=== PATIENT | female | born 1950 | race Caucasian/White ===

== ENCOUNTER 2022-09-26 12:25 | Observation (INO) | payer OTHER, SELFPAY ==
[2022-09-26] VITALS (11 sets, daily range): BP systolic 120–148; BP diastolic 64–88; PULSE 62–95; RESP 18–28; TEMP 36.3–36.7; O2SAT 95–99; BMI 14.5
--- NOTE | ~2022-09-26 | XR_ITS ---
XR chest 2V DATE: 09/26/2022 13:17 INDICATION: Dyspnea. Bilateral lower leg edema. Weakness. TECHNIQUE: 2 views COMPARISON: None FINDINGS: Status post sternotomy and probable coronary bypass graft surgery. Surgical clips overlie both upper lateral chest areas. Heart size is normal. There is thoracic and abdominal aortic calcification and great vessel calcifica tion. No hilar or mediastinal enlargement. Bilateral hyperinflation and flattening the diaphragm, suggesting COPD. No pulmonary infiltrate or co nsolidation, pleural effusion or pulmonary congestion or pneumothorax is detected. Diffuse osteopenia. IMPRESSION: Status post sternotomy and coronary bypass graft surgery Aortic atherosclerosis Bilateral hyperinflation suggesting COPD No active cardiopulmonary disease Reviewed, dictated and finalized at location B. CE ELECTRICIAN
--- NOTE | ~2022-09-26 | CT_ITS ---
EXAMINATION: CTA chest PE protocol DATE: 09/26/2022 19:07 INDICATION: elevated dimer, dyspnea TECHNIQUE: Computed tomography angiography (CTA) of the chest was performed with 100 mL Omnipaque-350 intravenous contrast timed to evaluate the pulmonary arteries. Coronal maximum intensity projection 3D-reconstructions were created by the technologist. The dose-length product (DLP) was 150.48 mGy-cm. Automated exposure control and iterative reconstruction technique were employed. COMPARISON: X-ray chest, same date. FINDINGS: Lung parenchyma and airways: Emphysematous change. Pleura: Unremarkable. Thoracic inlet, axillae and chest wall: Bilateral arterial grafts originating from the axillary arter ies and extending inferiorly along the left and right sides of the chest which appear patent. Graft l anding sites not included in the [id number]. Intact sternotomy wires. Thoracic aorta: Mild mural thickening of the aorta, with arch calcification. Mediastinum: Normal. Heart and pericardium: Normal. Coronary artery calcifications: Moderate. Upper abdomen: No significant finding. Bones: No acute osseous finding. Pulmonary arteries: Study quality: Adequate. No pulmonary emboli detected. IMPRESSION: No CT evidence of acute pulmonary embolus. Reviewed, dictated and finalized at location K. ECTION MANAGER
--- NOTE | 2022-09-26 12:33 | ECG_ITS ---
Measurements Intervals [place] Rate: 75 P: 48 MO: 125 QRS: 74 QRSD: 89 T: 66 QT: 440 QTc: 491 Interpretive Statements SINUS RHYTHM ATRIAL PREMATURE COMPLEXES T WAVE ABNORMALITY IN ANTERIOR LEADS- CONSIDER ISCHEMIA BASELINE ARTIFACT- I, II, III, AVR, AVL, AVF, V1-V6 ABNORMAL ECG NO PREVIOUS ECG AVAILABLE FOR COMPARISON Electronically Signed On 09-26-2022 17:32:49 RECRUITING MANAGER by Edd Saldivar D.O.
[2022-09-26 13:04] LABS: Basophils Percent Auto 0.1 % (0.2-1.2); Eosinophils Percent Auto 0.1 % (0-4.4); Hematocrit 27.8 % (37.0-47.0); Hemoglobin 7.6 g/dL (12.0-15.0); Immature Granulocyte Absolute 0.22 K/mm3 (0.00-0.031); Immature Granulocyte Percent A 1.6 % (0-0.5); Lymphocytes Absolute Auto 2.82 K/mm3 (0.9-3.2); Lymphocytes Percent Auto 20.7 % (18.3-44.2); Mean Corpuscular HGB Conc 27.3 g/dl (32-36); Mean Corpuscular Hemoglobin 22.5 pg (26-34); Mean Corpuscular Volume 82.2 fl (80-100); Monocytes Absolute Auto 1.1 K/mm3 (0.1-0.6); Neutrophils Absolute Auto 9.5 K/mm3 (1.3-6.7); Neutrophils Percent Auto 69.5 % (45.5-73.1); Nucleated Red Blood Cells Absolute Auto 0.1 K/mm3 (0.0-0.012); Nucleated Red Blood Cells Perc 0.8 % (0.0-0.2); Platelet Count Result 174 k/mm3 (150-375); Red Blood Count 3.38 M/mm3 (4.2-5.4); Red Cell Distribution Width 21.2 % (11.5-14.5); White Blood Count 13.6 K/mm3 (4.5-10.0)
[2022-09-26 13:09] LABS: Platelet Estimate Adequate (Adequate)
[2022-09-26 13:11] LABS: Hypochromasia 2+ (NORMAL)
[2022-09-26 13:12] LABS: Anisocytosis 2+ (NORMAL); Ovalocytes 2+ (NORMAL); Schistocytes None Seen (NORMAL); Target Cells 1+ (NORMAL); Tear Drop Cells 1+ (NORMAL)
[2022-09-26 13:22] LABS: Alanine Aminotransferase 37 U/L (6-35); Albumin Level 3.6 g/dL (3.5-5.1); Alkaline Phosphatase 78 U/L (38-126); Anion Gap 7 mmol/L (8-16); Aspartate Amino Transferase 52 U/L (14-36); Bilirubin,Total 0.5 mg/dL (0.2-1.3); Blood Urea Nitrogen 28 mg/dL (7-17); Carbon Dioxide 23 mmol/L (22-30); Chloride 109 mmol/L (98-107); Estimated CRCL calculation 40 ml/min; Estimated Glomerular Filt Rate > 60; Glucose 83 mg/dL (65-110); Potassium 4.3 mmol/L (3.4-5.0); Sodium 139 mmol/L (137-145)
[2022-09-26 13:34] LABS: NT Pro B Type Natriuretic Pept 2460 pg/mL (5-100); Troponin I < 0.012 ng/mL (0.000-0.034)
[2022-09-26 13:44] LABS: Influenza A QL RT-PCR Negative (Negative); Influenza B QL RT-PCR Negative (Negative); SARS-CoV-2 RNA PCR Negative
--- NOTE | 2022-09-26 16:42 | PC.NURSE ---
Pt placed on 2 L NC O2 due to increased WOB.
--- NOTE | 2022-09-26 16:58 | ED.SOB ---
HPI - SOB/Dyspnea General Chief Complaint: Shortness of Breath/Dyspnea Stated Complaint: difficulty breathing Time Seen by Provider: 09/26/22 16:58 Source: patient Mode of arrival: EMS Limitations: no limitations History of Present Illness HPI Narrative: Patient is a 72-year-old female with a history of COPD, coronary artery disease, hyperlipidemia, hypertension, CABG, chronic anticoagulation, recent GI bleed with hospitalization at [facility], presenting to the emergency department for evaluation of shortness of breath. Patient states that she has been short of breath over the course of the day today which prompted her visit to our ER. Patient reports aching chest pain in the center of her chest without radiation to the back, neck, shoulder. Patient denies significant cough or sputum production. She denies fever or chills. Patient reports generalized weakness and feeling unwell. She reports dark stools secondary to iron use. Patient states she was hospitalized at [facility] for GI bleed and had been chronically anticoagulated on Coumadin which has since been transitioned to apixaban. She has been compliant with her medication therapy. She does report bilateral lower extremity swelling around her ankles. She denies any focal calf pain or redness. Patient denies use of home oxygen. Related Data Home Medications Medication Instructions Recorded Confirmed Advair Diskus 2 inh inhalation Q6H PRN Shortness 09/26/22 09/26/22 Of Breath Crestor 40 mg PO DAILY 09/26/22 09/26/22 Lopressor 25 mg PO BID 09/26/22 09/26/22 Lyrica 150 mg PO BID 09/26/22 09/26/22 Protonix 40 mg PO DAILY 09/26/22 09/26/22 Remeron 15 mg PO HS 09/26/22 09/26/22 Requip 0.75 mg PO BID 09/26/22 09/26/22 albuterol 1.25 mg inhalation Q6H PRN Wheezing 09/26/22 09/26/22 alendronate 70 mg PO WEEKLY 09/26/22 09/26/22 apixaban 5 mg PO BID 09/26/22 09/26/22 aspirin 81 mg PO DAILY 09/26/22 09/26/22 donepezil 10 mg PO DAILY 09/26/22 09/26/22 escitalopram oxalate 5 mg PO DAILY 09/26/22 09/26/22 famotidine 20 mg PO DAILY 09/26/22 09/26/22 hydrocodone 5 mg-acetaminophen 325 1 tablet PO Q4H PRN Pain (Scale 09/26/22 09/26/22 mg tablet Score 4-6) isosorbide mononitrate 30 mg 30 mg PO DAILY 09/26/22 09/26/22 tablet,extended release 24 hr oxcarbazepine 150 mg PO HS 09/26/22 09/26/22 Allergies Allergy/AdvReac Type Severity Reaction Status Date / Time No Known Allergies Allergy Verified 09/26/22 12:39 Review of Systems Review of Systems: CONSTITUTIONAL: Denies fever, chills, or sweats. EYES: Denies visual changes, redness, or discharge. ENT: Denies rhinorrhea, congestion, sore throat, or otalgia. CARDIOVASCULAR: Reports chest pain without palpitations; reports bilateral ankle edema, denies calf edema RESPIRATORY: Reports cough and shortness of breath GASTROINTESTINAL: Denies abdominal pain, nausea, vomiting, or diarrhea. GENITOURINARY: Denies dysuria or hematuria. SKIN: Denies rash or itching. MUSCULOSKELETAL: Denies back pain, joint pain, or myalgia. NEUROLOGIC: Denies headache, numbness; reports generalized weakness PMF Past Medical History Medical History (Updated 09/26/22 @ 23:31 by Lisa Huggins MD) Chronic anticoagulation Coronary artery disease GI bleed Hypertension Surgical History Surgical History (Updated 09/26/22 @ 17:20 by Lisa Huggins MD) Hx of CABG Family History Family History (Updated 09/26/22 @ 22:20 by Tessa Whitt RN) Father Acute myocardial infarction Cerebrovascular accident Congestive heart failure Hypertension Mother Acute myocardial infarction History of blood clots Congestive heart failure Hypertension Sibling Asthma Social History Social History (Updated 09/26/22 @ 17:20 by Lisa Huggins MD) Smoking status: Former smoker Alcohol intake: never Substance use: never Lack of Transportation: No Lack of Food: Never True Current Housing: I Have Housing Concerne
[2022-09-26] MEDS: methylPREDNISolone SOD SUCC 125 MG VIAL IV PUSH (17:34)
[2022-09-26] MEDS: IPRATROPIUM BR 0.02% INH SOLN 0.5 MG/2.5 ML VIAL INHALATION (17:46)
[2022-09-26] MEDS: ALBUTEROL SULFATE NEB 2.5 MG/3 ML INH 5 MG INHALATION (17:46)
[2022-09-26 17:50] LABS: Base Excess ABG -0.9 mEq/l (+/-2.0); Carboxyhemoglobin 1.9 % THb (0-2.0); Fractional Inspired Oxygen 21 %; Methemoglobin ABG 0.3 %THb (0-1.5); Oxygen Content ABG 10.9 %vol (16.0-22.0); Oxygen Saturation ABG 96.8 % (95.0-100.0); Oxyhemoglobin 93.6 % THb (90.0-100.0); PCO2 ABG 34.5 mmHg (35.0-45.0); PO2 ABG 84.4 mmHg (80.0-100.0); PO2 FiO2 Ratio Arterial Blood 4.02 %; Reduced Hemoglobin 4.2 %THb (0-5.0); Total Hemoglobin 8.2 g/dL (12.0-18.0); pH ABG 7.442 (7.350-7.450)
[2022-09-26 17:51] LABS: Device NASAL CANNULA; Modified Allen's Test Pass; Site Drawn LEFT RADIAL
[2022-09-26 18:00] LABS: INR 1.2; Partial Thromboplastin Time 26.1 SECONDS (22.3-36.8); Prothrombin Time 14.5 Seconds (11.1-14.7)
[2022-09-26 18:34] LABS: D Dimer 1.58 ug/mL (<0.48)
--- NOTE | 2022-09-26 20:02 | PM.IMHP ---
H&P: HPI History of Present Illness Date/Time: 09/26/22 20:02 Chief Complaint: shortness of breath Narrative: This is a 72-year-old female with past medical history significant for peripheral vascular disease, hypertension, COPD/emphysema. patient was just discharged from outside hospital due to GI bleed has had 30 lb weight loss in the last 6 months unintentionally. She comes in today due to worsening shortness of breath, denies sputum production, has some ankle edema and pedal edema, no nausea, no vomiting, no abdominal pain, no diarrhea, no fevers, no rigors, no chills. preliminary workup was significant for CT angiogram of the chest was negative for acute pulmonary embolism a chest x-ray showed hyperinflation a brain natriuretic peptide was 2400. Patient is been admitted for further evaluation management and treatment. Review of Systems Review of Systems: Shortness of breath, pedal swelling, ankle swelling, unintentional weight loss, GI bleed. Constitutional: Constitutional: Denies chills, Reports fatigue, Denies fever(s), Reports lethargy, Denies night sweats, Reports poor appetite and Reports weight loss Eyes: Eyes: Denies change in vision ENT: Denies dysphagia, Denies vertigo, Denies dizziness and Denies odynophagia Respiratory: Respiratory: Denies chest congestion, Denies cough, Denies excessive phlegm production, Denies pain on inspiration, Reports dyspnea and Reports wheezing Gastrointestinal: Gastrointestinal: Denies abdominal pain, Denies dyspepsia, Denies heartburn, Denies diarrhea, Denies nausea and Denies vomiting Genitourinary: Genitourinary: Denies dysuria Musculoskeletal: Musculoskeletal: Reports muscle weakness Integumentary/Breasts: Skin/Breast: Denies rash Neurologic: Denies vertigo, Denies dizziness, Denies focal weakness and Denies Sensory deficit (Neuro) Psychiatric: Psychiatric: Reports no additional psychiatric complaints and Reports as per HPI Endocrine: Endocrine: Denies cold intolerance and Denies heat intolerance Hematologic/Lymphatic: Hematologic/Lymphatic: Reports no additional hematologic/lymphatic complaints and Reports as per HPI Allergic/Immunologic: Allergic/Immunologic: Reports no additional allergic/immunologic complaints and Reports as per HPI [facility] Past Medical History Medical History (Updated 09/27/22 @ 00:24 by Amanda Ramirez MD) Chronic anticoagulation Coronary artery disease GI bleed Hypertension Surgical History Surgical History (Updated 09/26/22 @ 17:20 by Lisa Huggins MD) Hx of CABG Family History Family History (Updated 09/26/22 @ 22:20 by Tessa Whitt RN) Father Acute myocardial infarction Cerebrovascular accident Congestive heart failure Hypertension Mother Acute myocardial infarction History of blood clots Congestive heart failure Hypertension Sibling Asthma Social History Social History (Updated 09/26/22 @ 17:20 by Lisa Huggins MD) Smoking status: Former smoker Alcohol intake: never Substance use: never Lack of Transportation: No Lack of Food: Never True Current Housing: I Have Housing Concerned About Future Housing: No Difficulty Paying Gas/Electric Bills: No Difficulty Paying for Meds: No Currently Unemployed: No Education: High School Diploma/GED Difficulty w/ Childcare or Family Care: No Living arrangements: alone Gender identity (if verbalized by the patient): Female Spiritual care concerns: No Meds Home Medications and Allergies Home Medications Medication Instructions Recorded Confirmed Type Advair Diskus 2 inh inhalation Q6H PRN Shortness 09/26/22 09/26/22 History Of Breath Crestor 40 mg PO DAILY 09/26/22 09/26/22 History Lopressor 25 mg PO BID 09/26/22 09/26/22 History Lyrica 150 mg PO BID 09/26/22 09/26/22 History Protonix 40 mg PO DAILY 09/26/22 09/26/22 History Remeron 15 mg PO HS 09/26/22 09/26/22 History Requip 0.75 mg PO BID 09/26/22 09/26/22 Hist
--- NOTE | 2022-09-26 22:09 | ADMGEN ---
This patient, Elena Sanon, was admitted to Medical Room 342-01. Patient/family oriented to hospital policies and general routines including ID bracelet, bed and alarms, visiting hours, pain management, procedures, bathroom and other care routines, personal items, smoking policy, room service/diet, and visiting hours. Information on how to activate the Rapid Response Team has been discussed. Patient/Family are encouraged to report perceived risks to care and to ask questions if they do not understand what they are told or what they should do.
[2022-09-26 23:05] LABS: Hematocrit 26.8 % (37.0-47.0); Hemoglobin 7.4 g/dL (12.0-15.0)
[2022-09-26 23:42] LABS: Troponin I < 0.012 ng/mL (0.000-0.034)
[2022-09-27] VITALS (22 sets, daily range): BP systolic 103–140; BP diastolic 51–71; PULSE 62–116; RESP 16–22; TEMP 36.3–36.9; O2SAT 94–100; BMI 14.5
[2022-09-27] MEDS: OXcarbazepine 150 MG TABLET PO (01:28)
[2022-09-27 04:58] LABS: Hematocrit 28.4 % (37.0-47.0); Hemoglobin 7.9 g/dL (12.0-15.0)
[2022-09-27 05:25] LABS: Troponin I < 0.012 ng/mL (0.000-0.034)
--- NOTE | 2022-09-27 06:00 | ECHO_ITS ---
Patient Info Name: Elena Sanon Age: 72 years : 1950 Gender: Female Ht: 62 in Wt: 79 lbs BSA: 1.24 m2 HR: 78 bpm BP: 148 / 75 mmHg Heart Rhythm: Sinus Rhythm Technical Quality: Fair Exam Date: 09/27/2022 8:16 AM Exam Location: [facility] Patient Status: Inpatient Admit Date: 09/26/2022 Staff Ordering Physician: Lisa Huggins MD [place] Farmer: Karol Harmon RDCS Attending Provider: Amanda Ramirez MD Referring Physician: Joseluis VALENZUELA; Exam Type: CA echo doppler color flow Study Info Indications - elevated bnp, dyspnea Complete two-dimensional, color flow and Doppler transthoracic echocardiogram is performed. Summary 1. Complete two-dimensional, color flow and Doppler transthoracic echocardiogram is performed. 2. Left ventricular systolic function is normal, estimated at 50-55%. 3. The basal inferoseptum is thinned and akinetic. 4. The left ventricular diastolic function is grade I diastolic dysfunction. 5. Right ventricular chamber dimension is normal. 6. Right ventricular systolic function is reduced. 7. The mitral valve has thickened leaflets. 8. There is severe mitral valve regurgitation. 9. Normal inferior vena cava with >50% collapse upon inspiration consistent with normal right atrial pressure, 3 mmHg. Left Ventricle The basal inferoseptum is thinned and akinetic. Left ventricular chamber dimension is normal. Left ventricular systolic function is normal, estimated at 50-55%. There is no increased left ventricular wall thickness. The left ventricular diastolic function is grade I diastolic dysfunction. Right Ventricle Right ventricular chamber dimension is normal. Right ventricular systolic function is reduced. Left Atria Left atrial chamber dimension is normal. Right Atria Right atrial chamber dimension is normal. Aortic Valve The aortic valve is not well visualized. There is moderate aortic valve sclerosis. There is no aortic valve stenosis. There is no aortic valve regurgitation. Pulmonic Valve The pulmonic valve is not well visualized. Mitral Valve The mitral valve has thickened leaflets. There is no mitral valve stenosis. There is severe mitral valve regurgitation. Tricuspid Valve The tricuspid valve leaflets are normal. There is trace tricuspid valve regurgitation. Pericardium/Pleural There is no pericardial effusion. Inferior Vena Cava Normal inferior vena cava with >50% collapse upon inspiration consistent with normal right atrial pressure, 3 mmHg. Aorta The aortic root size at the sinus of Valsalva is normal. Left Ventricular Outflow Tract Name Value Normal LVOT 2D LVOT Diameter 2.0 cm LVOT Doppler LVOT Peak Gradient 3 mmHg LVOT Mean Gradient 2 mmHg LVOT VTI 19 cm LVOT VTI/AV VTI Ratio 0.7 LVOT Stroke Volume 58 ml LVOT CO 4.2 l/min LVOT CI 3.4 l/min/m2 Pulmonic Valve
[2022-09-27 08:46] LABS: Hematocrit 26.4 % (37.0-47.0); Hemoglobin 7.3 g/dL (12.0-15.0)
[2022-09-27] MEDS: FLUTICASONE/SALMETEROL 115-21 MCG INHALER 1 PUFF 2 PUFF INHALATION ×2 (09:00→21:43)
[2022-09-27] MEDS: IPRATROPIUM BR 0.02% INH SOLN 0.5 MG/2.5 ML VIAL INHALATION ×4 (09:00→21:30)
[2022-09-27] MEDS: ALBUTEROL SULFATE NEB 2.5 MG/3 ML INH 5 MG INHALATION ×4 (09:00→21:30)
[2022-09-27] MEDS: ASPIRIN 81 MG CHEWABLE TABLET PO (09:02)
[2022-09-27] MEDS: ESCITALOPRAM OXALATE 5 MG TABLET PO (09:02)
[2022-09-27] MEDS: DONEPEZIL HCL 10 MG TABLET PO (09:02)
[2022-09-27] MEDS: FAMOTIDINE 20 MG TABLET PO (09:02)
[2022-09-27] MEDS: APIXABAN 5 MG TABLET BY MOUTH ×2 (09:02→20:23)
[2022-09-27] MEDS: ISOSORBIDE MONONITRATE 30 MG TAB.ER.24H PO (09:03)
[2022-09-27] MEDS: PREGABALIN (*CRX) 75 MG CAPSULE 150 MG PO ×2 (09:03→17:12)
[2022-09-27] MEDS: PANTOPRAZOLE 40 MG TABLET PO ×2 (09:03→20:55)
[2022-09-27] MEDS: ROSUVASTATIN 10 MG TABLET 40 MG PO (09:03)
[2022-09-27] MEDS: METOPROLOL TARTRATE 25 MG TABLET PO ×2 (09:03→20:22)
[2022-09-27] MEDS: rOPINIRole HCL 0.5 MG TABLET PO ×2 (09:03→17:12)
[2022-09-27 11:29] LABS: Appearance Urine Clear (Clear); Bilirubin Urine Negative (Negative); Blood Urine Negative (Negative); Color Urine Yellow (Yellow); Glucose Urine UA Negative (Negative); Ketones Urine Negative (Negative); Leukocyte Esterase Ur Negative LEU/UL (Negative); Nitrate Urine Negative (Negative); Protein Urine 2+ mg/dL (Negative); Urobilinogen Urine 0.2 mg/dL (<2.0)
[2022-09-27 11:34] LABS: Add Urine Microscopic? YES; RBC Urine 0-2 /hpf (0-2); Squamous Epithelial Cell Urine Rare /hpf (Few); WBC Urine 0-3 /hpf
--- NOTE | 2022-09-27 14:00 | PM.IMPN ---
Progress Note: A&P Assessment and Plan (1) COPD exacerbation: Code(s): J44.1 - Chronic obstructive pulmonary disease with (acute) exacerbation Status: Acute Assessment and Plan: admit to regular medical floor breathing treatments q.4 no change in sputum quality no infiltrates on CT of the chest Start prednisone 40 mg supportive care (2) Anemia: Code(s): D64.9 - Anemia, unspecified Status: Acute Assessment and Plan: Trending H&H Hemoglobin on arrival 7.4 Hemoglobin dropped to 6.7. Patient received 1 unit of packed red blood cells. Anemia labs ordered Occult stool ordered Consider GI consult pending anemia and of occult stool (3) Weight loss: Code(s): R63.4 - Abnormal weight loss Status: Acute Assessment and Plan: Patient has a history of 30 lb unintentional weight loss the past 6 months Patient attributes weight loss to lack of eating due to shortness of breath (4) Shortness of breath: Code(s): R06.02 - Shortness of breath Status: Acute Assessment and Plan: Differentials: PE, COPD exacerbation, congestive heart failure, pneumonia, anemia CTA negative for PE BNP 2400 Chest x-ray indicated of COPD, no pulmonary infiltrates suggestive of pneumonia Echo: EF of 50-55%, grade 1 diastolic dysfunction, severe mitral valve regurg, mitral valve thickened leaflets Cardiology consulted (5) Coronary artery disease: Code(s): I25.10 - Atherosclerotic heart disease of [place] coronary artery without angina pectoris Status: Acute Assessment and Plan: chest pain-free continue home meds (6) Hypertension: Code(s): I10 - Essential (primary) hypertension Status: Acute Assessment and Plan: continue home meds continue to monitor (7) Peripheral vascular disease: Code(s): I73.9 - Peripheral vascular disease, unspecified Status: Acute Assessment and Plan: unchanged continue to monitor Time Spent With Patient Time with patient: Greater than 35 minutes Subjective Date/time seen: 09/27/22 14:00 Interval history: 72-year-old woman with a history of GI bleed, hypertension, COPD. She arrived to the ER with chief complaint of shortness of breath. Patient recently had GI bleed and was treated at [facility] patient stated that she had seen her doctor and discussed her shortness of breath with him and he wanted her to be seen in the ER. Patient stated that as long as she does not get up and move her shortness of breath is controlled. Patient stated that she came to the ER with edema in her lower extremities. She denies chest pain, nausea, vomiting diarrhea, constipation, and fever. Review of Systems Review of Systems: All systems reviewed & are unremarkable except as noted in HPI and below Objective Data Vital Signs Vital Signs: Vital Signs - 24 hr 09/26/22 16:40 09/26/22 16:41 09/26/22 16:41 Temperature Pulse Rate 78 84 Respiratory Rate 28 H Blood Pressure 136/80 Pulse Oximetry 99 96 Oxygen Delivery Room Air Oxygen Flow Rate 09/26/22 17:33 09/26/22 17:45 09/26/22 19:45 Temperature 97.3 F L Pulse Rate 79 80 81 Respiratory Rate 19 23 H 18 Blood Pressure 128/67 120/77 Pulse Oximetry 96 95 Oxygen Delivery Oxygen Flow Rate 09/26/22 21:22 09/26/22 21:42 09/26/22 22:21 Temperature 97.4 F L 97.4 F L Pulse Rate 95 81 Respiratory Rate 18 18 Blood Pressure 126/88 128/64 Pulse Oximetry 95 98 96 Oxygen Delivery Nasal Cannula Oxygen Flow Rate 2 09/26/22 22:00 09/26/22 22:10 09/27/22 00:00 Temperature 97.4 F L Pulse Rate 62 80 84 Respiratory Rate 20 Blood Pressure 148/75 H Pulse Oximetry 96 Oxygen Delivery Oxygen Flow Rate 09/27/22 04:00 09/27/22 06:00 09/27/22 09:02 Temperature 97.4 F L Pulse Rate 78 62 78 Respiratory Rate 20 22 H Blood Pressure 140/71 Pulse Oximetry 96 Oxygen Delive
[2022-09-27 14:20] LABS: Hematocrit 24.8 % (37.0-47.0); Mean Corpuscular Hemoglobin 22.7 pg (26-34); Mean Corpuscular Volume 84.1 fl (80-100); Mean Platelet Volume 11.6 fl (7.4-10.4); Platelet Count Result 152 k/mm3 (150-375); Red Blood Count 2.95 M/mm3 (4.2-5.4); Red Cell Distribution Width 22.4 % (11.5-14.5); White Blood Count 13.9 K/mm3 (4.5-10.0)
[2022-09-27 14:26] LABS: Hemoglobin 6.7 g/dL (12.0-15.0)
[2022-09-27 14:31] LABS: Anion Gap 7 mmol/L (8-16); Blood Urea Nitrogen 29 mg/dL (7-17); Calcium 8.4 mg/dL (8.4-10.2); Carbon Dioxide 20 mmol/L (22-30); Chloride 109 mmol/L (98-107); Estimated CRCL calculation 42 ml/min; Estimated Glomerular Filt Rate > 60; Glucose 161 mg/dL (65-110); Potassium 3.8 mmol/L (3.4-5.0); Sodium 136 mmol/L (137-145)
--- NOTE | 2022-09-27 15:01 | PC.NURSE ---
Spoke with hospitalist Shari regarding patients hemoglobin. Hospitalist wants labs drawn before blood is administered. Collision Worker has attempted to contact a federal judicial law clerk on 4 different extensions with no answer. Collision Worker has called charge nurse on 2 med and 3 med surg and both are unable to contact a federal judicial law clerk as well.
[2022-09-27] MEDS: ACETAMINOPHEN 325 MG TABLET 650 MG PO (15:22)
--- NOTE | 2022-09-27 15:54 | PM.CNCAR ---
Assessment and Plan Assessment and plan (1) Coronary artery disease: Code(s): I25.10 - Atherosclerotic heart disease of [place] coronary artery without angina pectoris Status: Acute Assessment and Plan: Remote history of CABG with multiple bypass grafts reportedly closed 18 years ago. No workup since. She has chest pain is very concerning for angina which is of course worsening because of anemia also. (2) COPD exacerbation: Code(s): J44.1 - Chronic obstructive pulmonary disease with (acute) exacerbation Status: Acute Assessment and Plan: Severe (3) Hypertension: Code(s): I10 - Essential (primary) hypertension Status: Acute (4) Peripheral vascular disease: Code(s): I73.9 - Peripheral vascular disease, unspecified Status: Acute Assessment and Plan: Severe (5) Unstable angina: Code(s): I20.0 - Unstable angina Status: Acute Assessment and Plan: Worsening angina over the past 6 months (6) Severe mitral regurgitation: Code(s): I34.0 - Nonrheumatic mitral (valve) insufficiency Status: Acute Assessment and Plan: Severe. Unknown chronicity (7) Anemia: Code(s): D64.9 - Anemia, unspecified Status: Acute Assessment and Plan: Uncertain etiology to this point. With the weight loss, concerning for underlying malignancy. Reportedly had an upper endoscopy recently and had cauterization (8) Weight loss: Code(s): R63.4 - Abnormal weight loss Status: Acute Assessment and Plan: Significant. 30 lb weight loss over the past 6 months (9) Chronic anticoagulation: Code(s): Z79.01 - extermination inspector (current) use of anticoagulants Status: Acute Plan This is a very complex patient with a very complex history. She is worsening angina which is obviously being worsened by severe anemia. She has need for chronic anticoagulation given her bypass grafting to her lower extremities. She also has severe anemia which is likely GI in etiology with significant weight loss which is concerning for underlying malignancy. She also has oxygen-dependent COPD. On top of the fact the most recent echocardiogram here in the hospital shows severe mitral regurgitation. In terms of workup, would 1st stabilize her anemia perspective. Would transfuse as need be and also complete the GI workup with colonoscopy and evaluation of underlying malignancy. Obviously once her bleeding issues stabilize, she will need ischemic workup and consideration of workup for mitral valve repair/replacement if clinically appropriate at that point. For now, would continue met Evoprolol, high-dose statin, isosorbide. Await GI evaluation workup and further recommendations depending on that result History of Present Illness History of Present Illness Consult date/time: 09/27/22 15:54 Requesting physician: Shari Scott PA-C Consult reason: Other (MR) Reason For Visit: COPD exacerbation, dyspnea, anemia Narrative: Date of service 09/27/2022 Reason consultation: Severe mitral regurgitation Requesting provider: Shari Scott History: Patient is a 9-year-old female who has a very complicated past medical history. She is a history of coronary disease status post CABG at the age of 44. She had a catheterization about 18 years ago which reportedly the patient had multiple bypass grafts which were already occluded. No PCI was performed at that point. Patient had emergent aortoiliac bypass by Dr. Hill in [place] a couple of years ago. She has been recently hospitalized twice at [facility] the past couple weeks because shortness of breath. Patient has oxygen-dependent COPD and also had severe anemia. She has required transfusions recently and most recent hospitalization resulted in iron transfusion. She was hospitalized yesterday after seeing her primary care physician. She has been having worsening swelling over the
[2022-09-27 16:35] LABS: Transferrin 307 mg/dL (206-381)
[2022-09-27] MEDS: SODIUM CHLORIDE 0.9% IV 250 ML 30 ML IV CONT (17:03)
[2022-09-27 17:06] LABS: Iron 24 ug/dL (37-170)
[2022-09-27 17:15] LABS: Percent Iron Saturation 6 % (20-50)
[2022-09-27 17:39] LABS: Folic Acid 13.8 ng/mL (2.76->20); Vitamin B12 > 1000.0 pg/mL (239-931)
[2022-09-27] MEDS: MIRTAZAPINE 15 MG TABLET PO (20:22)
[2022-09-28] VITALS (14 sets, daily range): BP systolic 100–163; BP diastolic 63–84; PULSE 75–127; RESP 16–20; TEMP 36.7–37; O2SAT 92–99
[2022-09-28 01:51] LABS: Hematocrit 32.5 % (37.0-47.0); Hemoglobin 9.5 g/dL (12.0-15.0)
[2022-09-28 06:09] LABS: Hematocrit 35.8 % (37.0-47.0); Hemoglobin 10.6 g/dL (12.0-15.0); Mean Corpuscular HGB Conc 29.6 g/dl (32-36); Mean Corpuscular Hemoglobin 24.8 pg (26-34); Mean Corpuscular Volume 83.8 fl (80-100); Mean Platelet Volume 12.2 fl (7.4-10.4); Platelet Count Result 156 k/mm3 (150-375); Red Blood Count 4.27 M/mm3 (4.2-5.4); Red Cell Distribution Width 22.3 % (11.5-14.5); White Blood Count 10.8 K/mm3 (4.5-10.0)
[2022-09-28 06:18] LABS: Alanine Aminotransferase 29 U/L (6-35); Albumin Level 3.6 g/dL (3.5-5.1); Alkaline Phosphatase 74 U/L (38-126); Anion Gap 3 mmol/L (8-16); Aspartate Amino Transferase 25 U/L (14-36); Bilirubin,Total 0.4 mg/dL (0.2-1.3); Blood Urea Nitrogen 24 mg/dL (7-17); Calcium 8.2 mg/dL (8.4-10.2); Carbon Dioxide 27 mmol/L (22-30); Chloride 107 mmol/L (98-107); Estimated CRCL calculation 42 ml/min; Estimated Glomerular Filt Rate > 60; Glucose 77 mg/dL (65-110); Potassium 3.9 mmol/L (3.4-5.0); Sodium 137 mmol/L (137-145)
[2022-09-28] MEDS: ASPIRIN 81 MG CHEWABLE TABLET PO (08:55)
[2022-09-28] MEDS: APIXABAN 5 MG TABLET BY MOUTH ×2 (08:55→19:59)
[2022-09-28] MEDS: ESCITALOPRAM OXALATE 5 MG TABLET PO (08:55)
[2022-09-28] MEDS: ISOSORBIDE MONONITRATE 30 MG TAB.ER.24H PO (08:55)
[2022-09-28] MEDS: METOPROLOL TARTRATE 25 MG TABLET PO ×2 (08:55→19:59)
[2022-09-28] MEDS: DONEPEZIL HCL 10 MG TABLET PO (08:55)
[2022-09-28] MEDS: FAMOTIDINE 20 MG TABLET PO (08:55)
[2022-09-28] MEDS: rOPINIRole HCL 0.5 MG TABLET PO ×2 (08:56→17:22)
[2022-09-28] MEDS: ROSUVASTATIN 10 MG TABLET 40 MG PO (08:56)
[2022-09-28] MEDS: PREGABALIN (*CRX) 75 MG CAPSULE 150 MG PO ×2 (08:56→17:22)
[2022-09-28] MEDS: PANTOPRAZOLE 40 MG TABLET PO ×2 (08:56→19:59)
--- NOTE | 2022-09-28 10:21 | PM.PNCARD ---
Progress Note: A&P Assessment and Plan (1) Coronary artery disease: Code(s): I25.10 - Atherosclerotic heart disease of [place] coronary artery without angina pectoris Status: Acute Assessment and Plan: Remote history of CABG with multiple bypass grafts reportedly closed 18 years ago. No workup since. She has chest pain is very concerning for angina which is of course worsening because of anemia also. (2) COPD exacerbation: Code(s): J44.1 - Chronic obstructive pulmonary disease with (acute) exacerbation Status: Acute Assessment and Plan: Severe (3) Hypertension: Code(s): I10 - Essential (primary) hypertension Status: Acute (4) Peripheral vascular disease: Code(s): I73.9 - Peripheral vascular disease, unspecified Status: Acute Assessment and Plan: Severe (5) Unstable angina: Code(s): I20.0 - Unstable angina Status: Acute Assessment and Plan: Worsening angina over the past 6 months (6) Severe mitral regurgitation: Code(s): I34.0 - Nonrheumatic mitral (valve) insufficiency Status: Acute Assessment and Plan: Severe. Most recent echo last month [facility] showed moderate mitral regurgitation. (7) Anemia: Code(s): D64.9 - Anemia, unspecified Status: Acute Assessment and Plan: Uncertain etiology to this point. With the weight loss, concerning for underlying malignancy. Reportedly had an upper endoscopy recently and had cauterization (8) Weight loss: Code(s): R63.4 - Abnormal weight loss Status: Acute Assessment and Plan: Significant. 30 lb weight loss over the past 6 months (9) Chronic anticoagulation: Code(s): Z79.01 - terminal manager (current) use of anticoagulants Status: Acute Plan This is a very complex patient with a very complex history. She is worsening angina which is obviously being worsened by severe anemia. She has need for chronic anticoagulation given her bypass grafting to her lower extremities. She also has severe anemia which is likely GI in etiology with significant weight loss which is concerning for underlying malignancy. She also has oxygen-dependent COPD. On top of the fact the most recent echocardiogram here in the hospital shows severe mitral regurgitation. In terms of workup, would 1st stabilize her anemia perspective. Obviously once her bleeding issues stabilize, she will need ischemic workup and consideration of workup for mitral valve repair/replacement if clinically appropriate at that point. For now, would continue Eliquis, metoprolol, high-dose statin, isosorbide. No further inpatient cardiac workup is planned at this point. Vascular access for coronary angiogram is significant issue. She wishes to discuss and follow up with Dr. Hill in [place] (vascular surgery). She also has follow-up with Dr. Alves at [facility] financial health counselor at [facility] Date/time seen: 09/28/22 10:21 Interval history: 72-year-old woman with a history of GI bleed, hypertension, COPD. She arrived to the ER with chief complaint of shortness of breath. Date of service 09/28/2022: She overall is feeling better. No chest pain, shortness of breath. Review of Systems Review of Systems: All systems reviewed & are unremarkable except as noted in HPI and below Constitutional: Constitutional: Denies chills and Denies excessive sweating Eyes: Eyes: Denies blurry vision ENT: Reports Normal hearing present Cardiovascular: Cardiovascular: Reports chest pain, Reports dyspnea and Reports dyspnea on exertion Respiratory: Respiratory: Reports dyspnea and Reports dyspnea on exertion Gastrointestinal: Gastrointestinal: Denies abdominal pain Genitourinary: Genitourinary: Denies hematuria Musculoskeletal: Musculoskeletal: Denies back pain Integumentary/Breasts: Skin/Breast: Denies skin pain Neurologic: Reports Normal hear
[2022-09-28] MEDS: IPRATROPIUM BR 0.02% INH SOLN 0.5 MG/2.5 ML VIAL INHALATION ×2 (13:19→15:38)
[2022-09-28] MEDS: FLUTICASONE/SALMETEROL 115-21 MCG INHALER 1 PUFF 2 PUFF INHALATION (13:19)
[2022-09-28] MEDS: ALBUTEROL SULFATE NEB 2.5 MG/3 ML INH 5 MG INHALATION ×2 (13:19→15:38)
[2022-09-28 14:41] LABS: Hematocrit 33.7 % (37.0-47.0); Hemoglobin 9.8 g/dL (12.0-15.0)
--- NOTE | 2022-09-28 15:03 | WPDGICN ---
Assessment and Plan Assessment and plan (1) Acute on chronic anemia: Code(s): D64.9 - Anemia, unspecified Status: Acute Assessment and Plan: she required blood transfusion in the past while she was on coumadin and recent EGD ? AVM (I do not have report) but no recent colonoscopy and concerning about weight loss now she was started on eliquis and again with worsening anemia will do egd and colonoscopy tomorrow h/h better after blood transfusion (2) Peripheral vascular disease: Code(s): I73.9 - Peripheral vascular disease, unspecified Status: Acute (3) Coronary artery disease: Code(s): I25.10 - Atherosclerotic heart disease of [place] coronary artery without angina pectoris Status: Acute Assessment and Plan: cardiology on board (4) Weight loss: Code(s): R63.4 - Abnormal weight loss Status: Acute Assessment and Plan: colonoscopy (5) Hypertension: Code(s): I10 - Essential (primary) hypertension Status: Acute (6) COPD exacerbation: Code(s): J44.1 - Chronic obstructive pulmonary disease with (acute) exacerbation Status: Acute (7) Severe mitral regurgitation: Code(s): I34.0 - Nonrheumatic mitral (valve) insufficiency Status: Acute (8) Chronic anticoagulation: Code(s): Z79.01 - correction (current) use of anticoagulants Status: Acute Assessment and Plan: on hold GI Consult Note Consult date/time: 09/28/22 15:03 Reason for consult: acute on chronic anemia HPI: Elena Sanon is a 72 year old female with past medical history significant for peripheral vascular disease that required vascular intervention, hypertension, COPD/emphysema. She was just admitted to [facility] with worsening anemia in setting of coumadin use that required blood transfusion, she had EGD and found to have vessels and cauterized , then started on eliquis instead. Her last colonoscopy 5 year ago, she had about 30 lb weight loss in the last 6 months unintentionally.? She is here with worsening shortness of breath and found again to be anemic hb 6.7 and given blood transfusion again, denies overt gib. CT angiogram of the chest was negative for acute pulmonary embolism, chest x-ray showed hyperinflation, brain natriuretic peptide was 2400. Review of Systems Review of Systems: All systems reviewed & are unremarkable except as noted in HPI and below Constitutional: Constitutional: Denies chills and Denies excessive sweating Eyes: Eyes: Denies blurry vision ENT: Reports Normal hearing present Cardiovascular: Cardiovascular: Reports chest pain, Reports dyspnea and Reports dyspnea on exertion Respiratory: Respiratory: Reports dyspnea and Reports dyspnea on exertion Gastrointestinal: Gastrointestinal: Denies abdominal pain Genitourinary: Genitourinary: Denies hematuria Musculoskeletal: Musculoskeletal: Denies back pain Integumentary/Breasts: Skin/Breast: Denies skin pain Neurologic: Reports Normal hearing present and Denies Abnormal speech present Psychiatric: Psychiatric: Denies anxiety Endocrine: Endocrine: Denies excessive sweating Hematologic/Lymphatic: Hematologic/Lymphatic: Reports easy bleeding Allergic/Immunologic: Allergic/Immunologic: Denies GI upset with certain foods PMFSH Past Medical History Medical History (Updated 09/28/22 @ 15:09 by Donovan Bartlett MD) Acute on chronic anemia Chronic anticoagulation Coronary artery disease GI bleed Hypertension Surgical History Surgical History Hx of CABG Family History Family History Father Acute myocardial infarction Cerebrovascular accident Congestive heart failure Hypertension Mother Acute myocardial infarction History of blood clots Congestive heart failure Hypertension Sibling Asthma Social H
--- NOTE | 2022-09-28 17:24 | PM.IMPN ---
Progress Note: A&P Assessment and Plan (1) COPD exacerbation: Code(s): J44.1 - Chronic obstructive pulmonary disease with (acute) exacerbation Status: Acute Assessment and Plan: Acute exacerbation of chronic disease. Continue scheduled duonebs, change to Q6 hours d/t tachycardia Deneis increased sputum or color change. Hold antibiotics at this time. CXR and CTA chest without infiltrates or consolidation. Hyperinflation on CXR. Continue supportive care. (2) Anemia: Code(s): D64.9 - Anemia, unspecified Status: Acute Assessment and Plan: Recent hospitalization and [facility] for GI bleed with EGD work-up reported, but no colonoscopy. Hemoglobin on arrival 7.4 Hemoglobin dropped 6.7 on 09/27/22 s/p 1 unit PRBC. Fecal occult blood ordered and pending. GI consulted and appreciate recommendations. Trend H/H. keep Hgb around 9 d/t cardiac disease. 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 Patient attributes weight loss to lack of eating due to shortness of breath Dietary consult continue regular diet and supplements. (4) Shortness of breath: Code(s): R06.02 - Shortness of breath Status: Acute Assessment and Plan: Differentials: PE, COPD exacerbation, congestive heart failure, pneumonia, anemia. Presumed multifactorial from COPD, severe mitral valve regurgitation and severe anemia. CTA negative for PE BNP 2400 Chest x-ray indicated of COPD, no pulmonary infiltrates suggestive of pneumonia Echo: EF of 50-55%, grade 1 diastolic dysfunction, severe mitral valve regurgitation, mitral valve thickened leaflets Cardiology consulted and appreciate recommendations. Recommend ischemic work-up and evaluation for mitral valve repair/replacement after stable from a GI standpoint. (5) Coronary artery disease: Code(s): I25.10 - Atherosclerotic heart disease of [place] coronary artery without angina pectoris Status: Chronic Assessment and Plan: Chronic, as above. H/O CABG. No acute chest pain continue crestor, imdur at home doses as BP allows. (6) Hypertension: Qualifiers: Hypertension type: primary hypertension Qualified Code(s): I10 - Essential (primary) hypertension Code(s): I10 - Essential (primary) hypertension Status: Chronic Assessment and Plan: Chronic, stable. continue home meds (7) Peripheral vascular disease: Code(s): I73.9 - Peripheral vascular disease, unspecified Status: Chronic Assessment and Plan: Chronic, stable. Continue home medications as above. On Eliquis (8) Severe mitral regurgitation: Code(s): I34.0 - Nonrheumatic mitral (valve) insufficiency Status: Chronic Assessment and Plan: Noted on Echocardiogram. Severe. Avoid hypotension. Plan CODE STATUS: FULL CODE Disposition: Estimated LOS 2-3 days, discharge home Time Spent With Patient Time with patient: 25 - 35 minutes Subjective Date/time seen: 09/28/22 17:24 She feels better after the blood transfusion yesterday. No chest pain, dizziness, or SOB at rest. She had one BM today that was formed and black. No abdominal pain. She has a non-productive cough. No chills or diaphoresis. She reports she was previously on warfarin for thrombosed arteries, but was transitioned to Eliquis d/t acute GI bleed during previous hospitalization. The patient and her daughter report her hemoglobin was in the 6's upon discharge. Review of Systems Review of Systems: All systems reviewed & are unremarkable except as noted in HPI and below Exam Narrative: General: No acute distress.?Thin, frail older adult female. Sitting up in bed. Mental Status/Psych: Awake, alert and oriente
[2022-09-28] MEDS: BISACODYL 5 MG TABLET EC 20 MG PO (19:56)
[2022-09-28] MEDS: polyethylene glycoL 3350 238 GM BOTTLE PO (19:57)
[2022-09-28] MEDS: MIRTAZAPINE 15 MG TABLET PO (19:59)
[2022-09-29] VITALS (20 sets, daily range): BP systolic 93–144; BP diastolic 58–69; PULSE 66–115; RESP 14–22; TEMP 36.1–36.7; O2SAT 92–100
[2022-09-29] MEDS: LACTATED RINGERS 1,000 ML 50 ML IV CONT (00:18)
[2022-09-29] MEDS: IPRATROPIUM BR 0.02% INH SOLN 0.5 MG/2.5 ML VIAL INHALATION ×3 (01:39→20:15)
[2022-09-29] MEDS: ALBUTEROL SULFATE NEB 2.5 MG/3 ML INH 5 MG INHALATION ×3 (01:39→20:15)
[2022-09-29] MEDS: polyethylene glycoL 3350 238 GM BOTTLE PO (05:00)
[2022-09-29 05:54] LABS: Hematocrit 32.2 % (37.0-47.0); Hemoglobin 9.3 g/dL (12.0-15.0); Immature Platelet Fraction Pct 11.6 % (0.9-11.2); Mean Corpuscular HGB Conc 28.9 g/dl (32-36); Mean Corpuscular Hemoglobin 24.3 pg (26-34); Mean Corpuscular Volume 84.3 fl (80-100); Mean Platelet Volume 12.7 fl (7.4-10.4); Platelet Count Result 138 k/mm3 (150-375); Red Blood Count 3.82 M/mm3 (4.2-5.4); Red Cell Distribution Width 22.7 % (11.5-14.5)
[2022-09-29 06:05] LABS: Alanine Aminotransferase 28 U/L (6-35); Albumin Level 2.9 g/dL (3.5-5.1); Alkaline Phosphatase 55 U/L (38-126); Anion Gap -2 mmol/L (8-16); Aspartate Amino Transferase 29 U/L (14-36); Bilirubin,Total 0.3 mg/dL (0.2-1.3); Blood Urea Nitrogen 19 mg/dL (7-17); Calcium 7.6 mg/dL (8.4-10.2); Carbon Dioxide 28 mmol/L (22-30); Chloride 106 mmol/L (98-107); Estimated CRCL calculation 50 ml/min; Estimated Glomerular Filt Rate > 60; Glucose 78 mg/dL (65-110); Sodium 132 mmol/L (137-145)
[2022-09-29 08:02] LABS: INR 1.1; Prothrombin Time 13.5 Seconds (11.1-14.7)
[2022-09-29 08:03] LABS: Partial Thromboplastin Time 26.3 SECONDS (22.3-36.8)
[2022-09-29] MEDS: rOPINIRole HCL 0.5 MG TABLET PO ×2 (09:16→16:38)
[2022-09-29] MEDS: ESCITALOPRAM OXALATE 5 MG TABLET PO (09:16)
[2022-09-29] MEDS: ASPIRIN 81 MG CHEWABLE TABLET PO (09:16)
[2022-09-29] MEDS: ROSUVASTATIN 10 MG TABLET 40 MG PO (09:16)
[2022-09-29] MEDS: ISOSORBIDE MONONITRATE 30 MG TAB.ER.24H PO (09:16)
[2022-09-29] MEDS: FAMOTIDINE 20 MG TABLET PO (09:16)
[2022-09-29] MEDS: METOPROLOL TARTRATE 25 MG TABLET PO ×2 (09:16→20:23)
[2022-09-29] MEDS: PANTOPRAZOLE 40 MG TABLET PO ×2 (09:17→20:23)
[2022-09-29] MEDS: DONEPEZIL HCL 10 MG TABLET PO (09:17)
[2022-09-29] MEDS: OXcarbazepine 150 MG TABLET PO (09:17)
[2022-09-29] MEDS: APIXABAN 5 MG TABLET BY MOUTH ×2 (09:17→20:23)
[2022-09-29] MEDS: IRON SUCROSE COMPLEX 500 MG in SODIUM CHLORIDE 0.9% IV 250 ML 78.57 MG IVPB (09:17)
[2022-09-29] MEDS: PREGABALIN (*CRX) 75 MG CAPSULE 150 MG PO ×2 (09:20→16:38)
[2022-09-29] MEDS: FLUTICASONE/SALMETEROL 115-21 MCG INHALER 1 PUFF 2 PUFF INHALATION ×2 (09:39→20:15)
--- NOTE | 2022-09-29 10:44 | PM.PNCARD ---
Progress Note: A&P Assessment and Plan (1) Coronary artery disease: Code(s): I25.10 - Atherosclerotic heart disease of [place] coronary artery without angina pectoris Status: Chronic Assessment and Plan: Remote history of CABG with multiple bypass grafts reportedly closed 18 years ago. No workup since. She has chest pain is very concerning for angina which is of course worsening because of anemia also. (2) COPD exacerbation: Code(s): J44.1 - Chronic obstructive pulmonary disease with (acute) exacerbation Status: Acute Assessment and Plan: Severe (3) Hypertension: Qualifiers: Hypertension type: primary hypertension Qualified Code(s): I10 - Essential (primary) hypertension Code(s): I10 - Essential (primary) hypertension Status: Chronic (4) Peripheral vascular disease: Code(s): I73.9 - Peripheral vascular disease, unspecified Status: Chronic Assessment and Plan: Severe (5) Unstable angina: Code(s): I20.0 - Unstable angina Status: Acute Assessment and Plan: Worsening angina over the past 6 months (6) Severe mitral regurgitation: Code(s): I34.0 - Nonrheumatic mitral (valve) insufficiency Status: Chronic Assessment and Plan: Severe. Most recent echo last month [facility] showed moderate mitral regurgitation. (7) Anemia: Code(s): D64.9 - Anemia, unspecified Status: Acute Assessment and Plan: Uncertain etiology to this point. With the weight loss, concerning for underlying malignancy. Reportedly had an upper endoscopy recently and had cauterization (8) Weight loss: Code(s): R63.4 - Abnormal weight loss Status: Acute Assessment and Plan: Significant. 30 lb weight loss over the past 6 months (9) Chronic anticoagulation: Code(s): Z79.01 - lobsterman (current) use of anticoagulants Status: Acute Plan This is a very complex patient with a very complex history. She is worsening angina which is obviously being worsened by severe anemia. She has need for chronic anticoagulation given her bypass grafting to her lower extremities. She also has severe anemia which is likely GI in etiology with significant weight loss which is concerning for underlying malignancy. She also has oxygen-dependent COPD. On top of the fact the most recent echocardiogram here in the hospital shows severe mitral regurgitation. In terms of workup, would 1st stabilize her anemia perspective. Obviously once her bleeding issues stabilize, she will need ischemic workup and consideration of workup for mitral valve repair/replacement if clinically appropriate at that point. For now, would continue Eliquis, metoprolol, high-dose statin, isosorbide. No further inpatient cardiac workup is planned at this point. Vascular access for coronary angiogram is significant issue. She wishes to discuss and follow up with Dr. Hill in [place] (vascular surgery). She also has follow-up with Dr. Alves at [place] features editor at [facility] Date/time seen: 09/29/22 10:44 Interval history: 72-year-old woman with a history of GI bleed, hypertension, COPD. She arrived to the ER with chief complaint of shortness of breath. Date of service 09/28/2022: She overall is feeling better. No chest pain, shortness of breath. Date of service 09/29/2022: Prepping for colonoscopy today. No chest pain or shortness of breath Review of Systems Review of Systems: All systems reviewed & are unremarkable except as noted in HPI and below Constitutional: Constitutional: Denies chills and Denies excessive sweating Eyes: Eyes: Denies blurry vision ENT: Reports Normal hearing present Cardiovascular: Cardiovascular: Reports chest pain, Reports dyspnea and Reports dyspnea on exertion Respiratory: Respiratory: Reports dyspnea and Reports dyspnea on exertion Gastrointestinal
--- NOTE | 2022-09-29 13:30 | WPDANESEPPF ---
Anes - Initial Pre Proc Eval Procedure: Operation Date: 09/29/22 15:00 Proposed Procedures p Esophagogastroduodenoscopy & Colonoscopy - Chandler Funk MD Operation Date: 09/29/22 15:00 Proposed Procedures p Esophagogastroduodenoscopy & Colonoscopy - Chandler Funk MD Date/Time: 09/29/22 13:30 Surgeon: Amanda Ramirez MD Pre Op Diagnosis: COPD exacerbation, dyspnea, anemia Patient Data Age: 72 Gender: F Height: 1.57 m Weight: 36 kg Last Vital Signs Temp 36.7 C 09/29/22 06:00 Pulse 100 09/29/22 12:00 Resp 18 09/29/22 09:49 BP 103/66 09/29/22 06:00 Pulse Ox 97 09/29/22 09:41 O2 Del Method Room Air 09/29/22 09:41 O2 Flow Rate 1 09/27/22 21:44 Allergies Allergy/AdvReac Type Severity Reaction Status Date / Time No Known Allergies Allergy Verified 09/26/22 12:39 Home Medications Medication Instructions Recorded Confirmed Type Advair Diskus 2 inh inhalation Q6H PRN Shortness 09/26/22 09/26/22 History Of Breath Crestor 40 mg PO DAILY 09/26/22 09/26/22 History Lopressor 25 mg PO BID 09/26/22 09/26/22 History Lyrica 150 mg PO BID 09/26/22 09/26/22 History Protonix 40 mg PO DAILY 09/26/22 09/26/22 History Remeron 15 mg PO HS 09/26/22 09/26/22 History Requip 0.75 mg PO BID 09/26/22 09/26/22 History albuterol 1.25 mg inhalation Q6H PRN Wheezing 09/26/22 09/26/22 History alendronate 70 mg PO WEEKLY 09/26/22 09/26/22 History apixaban 5 mg PO BID 09/26/22 09/26/22 History aspirin 81 mg PO DAILY 09/26/22 09/26/22 History donepezil 10 mg PO DAILY 09/26/22 09/26/22 History escitalopram oxalate 5 mg PO DAILY 09/26/22 09/26/22 History famotidine 20 mg PO DAILY 09/26/22 09/26/22 History hydrocodone 5 mg-acetaminophen 325 1 tablet PO Q4H PRN Pain (Scale 09/26/22 09/26/22 History mg tablet Score 4-6) isosorbide mononitrate 30 mg 30 mg PO DAILY 09/26/22 09/26/22 History tablet,extended release 24 hr oxcarbazepine 150 mg PO HS 09/26/22 09/26/22 History Laboratory Tests 09/28/22 09/29/22 09/29/22 14:26 05:28 05:28 WBC 9.0 K/mm3 K/mm3 (4.5-10.0) RBC 3.82 M/mm3 L M/mm3 (4.2-5.4) Hgb 9.8 g/dL L g/dL 9.3 g/dL L g/dL (12.0-15.0) (12.0-15.0) Hct 33.7 % L % 32.2 % L % (37.0-47.0) (37.0-47.0) MCV 84.3 fl fl (80-100) MCH 24.3 pg L pg (26-34) MCHC 28.9 g/dl L g/dl (32-36) RDW 22.7 % H % (11.5-14.5) Plt Count 138 k/mm3 L k/mm3 (150-375) MPV 12.7 fl H fl (7.4-10.4) % Immature Plt Fraction 11.6 % H % (0.9-11.2) PT 13.5 Seconds Seconds (11.1-14.7) INR 1.1 APTT 26.3 SECONDS SECONDS (22.3-36.8) Sodium Potassium Chloride Carbon Dioxide Anion Gap BUN Creatinine Estim Creat Clear Calc Estimated GFR Glucose Calcium Total Bilirubin AST ALT Alkaline Phosphatase Total Protein Albumin 09/29/22 05:28 WBC RBC Hgb Hct MCV MCH MCHC RDW Plt Count MPV % Immature Plt Fraction PT INR APTT Sodium 132 mmol/L L mmol/L (137-145) Potassium 4.0 mmol/L mmol/L (3.4-5.0) Chloride 106 mmol/L mmol/L (98-107) Carbon Dioxide 28 mmol/L mmol/L (22-30) Anion Gap -2 mmol/L L mmol/L (8-16) BUN 19 mg/dL H mg/dL (7-17) Creatinine 0.50 mg/dL L mg/dL (0.7-1.0) Estim Creat Clear Calc 50 ml/min ml/min Estimated GFR > 60 (59 - ) Glucose 78 mg/dL mg/dL (65-110) Calcium 7.6 mg/dL L mg/dL (8.4-10.2) Total Bilirubin 0.3 mg/dL mg/dL (0.2-1.3) AST 29 U/L U/L (14-36) ALT 28 U/L U/L (6-35) Alkaline Phosphatase 55 U/L U/L (38-126) Total Protein 5.0 g/dL L g/dL (6.3-8.2)
[2022-09-29] MEDS: LACTATED RINGERS 1,000 ML 150 ML IV CONT (13:49)
--- NOTE | 2022-09-29 14:50 | SUR.OPER ---
EGD END 1444 COLONOSCOPY START 1459
--- NOTE | 2022-09-29 17:40 | P.PNIM_ITS ---
Progress Note: A&P Assessment and Plan (1) COPD exacerbation: Code(s): J44.1 - Chronic obstructive pulmonary disease with (acute) exacerbation Status: Acute Assessment and Plan: Acute exacerbation of chronic disease. Continue scheduled duonebs, change to Q6 hours d/t tachycardia Denies increased sputum or color change. Hold antibiotics at this time. CXR and CTA chest without infiltrates or consolidation. Hyperinflation on CXR. Continue supportive care. Stable (2) Anemia: Qualifiers: Anemia type: iron deficiency [place] deficiency anemia type: chronic blood loss Qualified Code(s): D50.0 - Iron deficiency anemia secondary to blood loss (chronic) Code(s): D64.9 - Anemia, unspecified Status: Acute Assessment and Plan: Recent hospitalization and [facility] for GI bleed with EGD work-up reported, but no colonoscopy. Hemoglobin on arrival 7.4 * Hemoglobin dropped 6.7 on 09/27/22 s/p 1 unit PRBC. * Fecal occult blood ordered and pending. * GI consulted and appreciate recommendations. * Trend H/H. * keep Hgb around 9 d/t cardiac disease. 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 Hgb 9.3 and not significantly changed from previous (3) Weight loss: Code(s): R63.4 - Abnormal weight loss Status: Acute Assessment and Plan: Patient has a history of 30 lb unintentional weight loss the past 6 months. Pat fred attributes weight loss to lack of eating due to shortness of breath * Dietary consult * continue regular diet and supplements. (4) Shortness of breath: Code(s): R06.02 - Shortness of breath Status: Acute Assessment and Plan: Differentials: PE, COPD exacerbation, congestive heart failure, pneumonia, anemia. Presumed multifactorial from COPD, severe mitral valve regurgitation and severe anemia. * CTA negative for PE * BNP 2400 * Chest x-ray indicated of COPD, no pulmonary infiltrates suggestive of pneumonia * Echo: EF of 50-55%, grade 1 diastolic dysfunction, severe mitral valve regurgitation, mitral valve thickened leaflets * Cardiology consulted and appreciate recommendations. Recommend ischemic work- up and evaluation for mitral valve repair/replacement after stable from a GI standpoint. * Improving with COPD management and post-transfusion (5) Coronary artery disease: Qualifiers: Coronary Disease-Associated Artery/Lesion type: [place] artery [place] vs. transplanted heart: [place] heart Associated angina: without angina Qualified Code(s): I25.10 - Atherosclerotic heart disease of [place] coronary artery without angina pectoris Code(s): I25.10 - Atherosclerotic heart disease of [place] coronary artery without angina pectoris Status: Chronic Assessment and Plan: Chronic, as above. H/O CABG. No acute chest pain continue crestor, imdur at home doses as BP allows. (6) Hypertension: Qualifiers: Hypertension type: primary hypertension Qualified Code(s): I10 - Essential (primary) hypertension Code(s): I10 - Essential (primary) hypertension Status: Chronic Assessment and Plan: Chronic, stable. continue home meds (7) Peripheral vascular disease: Code(s): I73.9 - Peripheral vascular disease, unspecified Status: Chronic Assessment and Plan: Chronic, stable. Continue home medications as above. On Eliquis as above (8) Severe mitral regurgitation: Code(s): I34.0 - Nonrheumatic mitral (valve) insufficiency
--- NOTE | 2022-09-29 17:40 | PM.IMPN ---
Progress Note: A&P Assessment and Plan (1) COPD exacerbation: Code(s): J44.1 - Chronic obstructive pulmonary disease with (acute) exacerbation Status: Acute Assessment and Plan: Acute exacerbation of chronic disease. Continue scheduled duonebs, change to Q6 hours d/t tachycardia Denies increased sputum or color change. Hold antibiotics at this time. CXR and CTA chest without infiltrates or consolidation. Hyperinflation on CXR. Continue supportive care. Stable (2) Anemia: Qualifiers: Anemia type: iron deficiency Iron deficiency anemia type: chronic blood loss Qualified Code(s): D50.0 - Iron deficiency anemia secondary to blood loss (chronic) Code(s): D64.9 - Anemia, unspecified Status: Acute Assessment and Plan: Recent hospitalization and [facility] for GI bleed with EGD work-up reported, but no colonoscopy. Hemoglobin on arrival 7.4 Hemoglobin dropped 6.7 on 09/27/22 s/p 1 unit PRBC. Fecal occult blood ordered and pending. GI consulted and appreciate recommendations. Trend H/H. keep Hgb around 9 d/t cardiac disease. 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 Hgb 9.3 and not significantly changed from previous (3) Weight loss: Code(s): R63.4 - Abnormal weight loss Status: Acute Assessment and Plan: Patient has a history of 30 lb unintentional weight loss the past 6 months. Patient attributes weight loss to lack of eating due to shortness of breath Dietary consult continue regular diet and supplements. (4) Shortness of breath: Code(s): R06.02 - Shortness of breath Status: Acute Assessment and Plan: Differentials: PE, COPD exacerbation, congestive heart failure, pneumonia, anemia. Presumed multifactorial from COPD, severe mitral valve regurgitation and severe anemia. CTA negative for PE BNP 2400 Chest x-ray indicated of COPD, no pulmonary infiltrates suggestive of pneumonia Echo: EF of 50-55%, grade 1 diastolic dysfunction, severe mitral valve regurgitation, mitral valve thickened leaflets Cardiology consulted and appreciate recommendations. Recommend ischemic work-up and evaluation for mitral valve repair/replacement after stable from a GI standpoint. Improving with COPD management and post-transfusion (5) Coronary artery disease: Qualifiers: Coronary Disease-Associated Artery/Lesion type: [place] artery [place] vs. transplanted heart: [place] heart Associated angina: without angina Qualified Code(s): I25.10 - Atherosclerotic heart disease of [place] coronary artery without angina pectoris Code(s): I25.10 - Atherosclerotic heart disease of [place] coronary artery without angina pectoris Status: Chronic Assessment and Plan: Chronic, as above. H/O CABG. No acute chest pain continue crestor, imdur at home doses as BP allows. (6) Hypertension: Qualifiers: Hypertension type: primary hypertension Qualified Code(s): I10 - Essential (primary) hypertension Code(s): I10 - Essential (primary) hypertension Status: Chronic Assessment and Plan: Chronic, stable. continue home meds (7) Peripheral vascular disease: Code(s): I73.9 - Peripheral vascular disease, unspecified Status: Chronic Assessment and Plan: Chronic, stable. Continue home medications as above. On Eliquis as above (8) Severe mitral regurgitation: Code(s): I34.0 - Nonrheumatic mitral (valve) insufficiency Status: Chronic Assessment and Plan: Noted on Echocardiogram. Severe. Avoid hypotension. Plan CODE STATUS: FULL CODE Disposition: Observation. Possible discharge tomorrow am if respiratory status and H/H stable. Discharge destination: home Time Spent With Patient Time with patient: less than 15 minutes Subjective Date/time seen: 09/29/22 17:40 Attempted to see the patient tod
[2022-09-29] MEDS: MIRTAZAPINE 15 MG TABLET PO (20:23)
[2022-09-30] VITALS (13 sets, daily range): BP systolic 90–110; BP diastolic 61–68; PULSE 88–114; RESP 16–20; TEMP 36.8; O2SAT 86–95
[2022-09-30 05:49] LABS: Hematocrit 33.3 % (37.0-47.0); Hemoglobin 9.6 g/dL (12.0-15.0); Immature Platelet Fraction Pct 13.3 % (0.9-11.2); Mean Corpuscular HGB Conc 28.8 g/dl (32-36); Mean Corpuscular Hemoglobin 24.9 pg (26-34); Mean Corpuscular Volume 86.5 fl (80-100); Platelet Count Result 119 k/mm3 (150-375); Red Blood Count 3.85 M/mm3 (4.2-5.4); Red Cell Distribution Width 22.9 % (11.5-14.5); White Blood Count 13.6 K/mm3 (4.5-10.0)
[2022-09-30 05:57] LABS: Alanine Aminotransferase 26 U/L (6-35); Albumin Level 2.8 g/dL (3.5-5.1); Alkaline Phosphatase 52 U/L (38-126); Anion Gap 3 mmol/L (8-16); Aspartate Amino Transferase 23 U/L (14-36); Bilirubin,Total 0.4 mg/dL (0.2-1.3); Blood Urea Nitrogen 24 mg/dL (7-17); Calcium 8.3 mg/dL (8.4-10.2); Carbon Dioxide 25 mmol/L (22-30); Chloride 109 mmol/L (98-107); Estimated CRCL calculation 37 ml/min; Estimated Glomerular Filt Rate > 60; Glucose 82 mg/dL (65-110); Potassium 4.2 mmol/L (3.4-5.0); Sodium 137 mmol/L (137-145)
--- NOTE | 2022-09-30 07:07 | WPDGIPROGNO ---
Progress Note: A&P Assessment and Plan (1) Acute on chronic anemia: Code(s): D64.9 - Anemia, unspecified Status: Acute Assessment and Plan: the only endoscopic finding to explain her knee is a multiple ulcerations in the stomach which appeared to be due to her use of aspirin. There were also areas of inflammation which appear to be secondary to recent APC treatment at another institution. These were along the greater curvature stomach. Additionally, there was 1 Endoclip to 2nd portion of the duodenum were I suspect an AVM may have been found recently. (2) Chronic anticoagulation: Code(s): Z79.01 - termite renewal inspector (current) use of anticoagulants Status: Acute Assessment and Plan: Because of her severe vascular disease she cannot be taken off anticoagulation. (3) Peripheral vascular disease: Code(s): I73.9 - Peripheral vascular disease, unspecified Status: Chronic Assessment and Plan: She has had extensive vascular surgery reconstruction including a synthetic graft subcutaneous on the right side of her torso. (4) Gastric ulcer: Code(s): K25.9 - Gastric ulcer, unspecified as acute or chronic, without hemorrhage or perforation Status: Acute Assessment and Plan: Multiple ulcerations were seen. Did take biopsies were, however suspect this is all secondary to her use of aspirin which she had been taken often on empty stomach. (5) Telma esophagitis: Code(s): B37.81 - Candidal esophagitis Status: Acute Assessment and Plan: She has been on doxycycline chronically. Diflucan interacts with many of her medications. Therefore we will use nystatin suspension Subjective Date/time seen: 09/30/22 07:07 She states she was not hungry last night but has no new complaints. We discussed her findings, the fact that she has Telma esophagitis. She states that she Fabi take steroids, usually when she is hospitalized with COPD exacerbation. She is however chronically on doxycycline which is to help prevent infection in her vascular grafts. She states that they have just discontinued that. She is not sure of another antibiotic will be started. We also discussed her multiple gastric ulcers and gastritis. She does take aspirin on an empty stomach. I cautioned her to always eat 1st. Review of Systems Review of Systems: All systems reviewed & are unremarkable except as noted in HPI and below Exam Const: General: alert Orientation/consciousness: patient oriented x3 Resp: Auscultation: clear to auscultation bilaterally Cardio: Palpation: other ( She has palpable vascular graft up and down the right torso.) Rhythm: regular rhythm GI: GI Palp: Yes Soft to palpation, No Tenderness to palpation present (GI) and Yes No hepatosplenomegaly present Percussion: Yes normal to percussion Auscultation: normal bowel sounds Neuro: General: patient oriented x3 Objective Data Vital Signs Vital Signs: Vital Signs - 24 hr 09/29/22 09:16 09/29/22 09:40 09/29/22 09:41 Temperature Pulse Rate 100 81 Respiratory Rate 16 Blood Pressure Pulse Oximetry 97 Oxygen Delivery Room Air 09/29/22 09:49 09/29/22 09:00 09/29/22 09:00 Temperature Pulse Rate 80 92 Respiratory Rate 18 Blood Pressure Pulse Oximetry Oxygen Delivery Room Air 09/29/22 12:00 09/29/22 13:50 09/29/22 15:00 Temperature 36.1 C L Pulse Rate 100 78 66 Respiratory Rate 18 22 H Blood Pressure 107/58 L 105/61 Pulse Oximetry 94 98 Oxygen Delivery Room Air Room Air 09/29/22 15:10 09/29/22 15:20 09/29/22 15:48 Temperature 36.2 C L Pulse Rate 89 79 76 Respiratory Rate 22 H 19 14 Blood Pressure 93/60 L 100/60 144/64 H Pulse Oximetry 98 92 100 Oxygen Delivery Room Air Room Air 09/29/22 16:00 09/29/22 20:23 09/29/22 22:00 Temperature 36.6 C Pulse Rate 68 102 H 93 Respiratory Rate 18 Blood Pressure 96/69 L Pulse Oximetry 93 Oxy
[2022-09-30] MEDS: OXcarbazepine 150 MG TABLET PO (08:46)
[2022-09-30] MEDS: ROSUVASTATIN 10 MG TABLET 40 MG PO (08:46)
[2022-09-30] MEDS: ESCITALOPRAM OXALATE 5 MG TABLET PO (08:46)
[2022-09-30] MEDS: PANTOPRAZOLE 40 MG TABLET PO (08:46)
[2022-09-30] MEDS: METOPROLOL TARTRATE 25 MG TABLET PO (08:46)
[2022-09-30] MEDS: ISOSORBIDE MONONITRATE 30 MG TAB.ER.24H PO (08:46)
[2022-09-30] MEDS: NYSTATIN 100,000 UNITS/ML SUSP 5 ML ORAL.SUSP PO ×2 (08:46→12:17)
[2022-09-30] MEDS: APIXABAN 5 MG TABLET BY MOUTH (08:46)
[2022-09-30] MEDS: ASPIRIN 81 MG CHEWABLE TABLET PO (08:46)
[2022-09-30] MEDS: rOPINIRole HCL 0.5 MG TABLET PO (08:46)
[2022-09-30] MEDS: PREGABALIN (*CRX) 75 MG CAPSULE 150 MG PO (08:46)
[2022-09-30] MEDS: IRON SUCROSE COMPLEX 500 MG in SODIUM CHLORIDE 0.9% IV 250 ML 78.57 MG IVPB (08:47)
[2022-09-30] MEDS: FAMOTIDINE 20 MG TABLET PO (08:47)
[2022-09-30] MEDS: DONEPEZIL HCL 10 MG TABLET PO (08:47)
--- NOTE | 2022-09-30 10:44 | PCRCNOTE ---
Window of time for administration has passed. See next scheduled administration.
--- NOTE | 2022-09-30 11:20 | WPDANESPN ---
Anes - Prog Note Post-Op Date/Time: 09/30/22 11:20 Cardiovascular status: normal Respiratory status: normal Airway patency: baseline Mental status: baseline Post-Op hydration status: normal Vital Signs: Last Vital Signs Temp 36.8 C 09/30/22 05:24 Pulse 100 09/30/22 08:46 Resp 20 09/30/22 05:24 BP 110/68 09/30/22 08:45 Pulse Ox 95 09/30/22 08:45 O2 Del Method Room Air 09/30/22 08:45 O2 Flow Rate 1 09/27/22 21:44 Pain Score (VAS): 0 I/O: Intake & Output 09/29/22 09/30/22 09/30/22 23:59 07:59 15:59 Intake Total 480 250 480 Balance 480 250 480 Laboratory Tests 09/30/22 05:32 09/30/22 05:32 09/30/22 09/30/22 05:32 05:32 WBC 13.6 H RBC 3.85 L Hgb 9.6 L Hct 33.3 L MCV 86.5 MCH 24.9 L MCHC 28.8 L RDW 22.9 H Plt Count 119 L MPV TNP % Immature Plt Fraction 13.3 H Sodium 137 Potassium 4.2 Chloride 109 H Carbon Dioxide 25 Anion Gap 3 L BUN 24 H Creatinine 0.70 Estim Creat Clear Calc 37 Estimated GFR > 60 Glucose 82 Calcium 8.3 L Total Bilirubin 0.4 AST 23 ALT 26 Alkaline Phosphatase 52 Total Protein 5.0 L Albumin 2.8 L Post-procedural complaints: none Patient Feedback: Patient satisfied with anesthetic care.
[2022-09-30] MEDS: IPRATROPIUM BR 0.02% INH SOLN 0.5 MG/2.5 ML VIAL INHALATION (13:36)
[2022-09-30] MEDS: ALBUTEROL SULFATE NEB 2.5 MG/3 ML INH 5 MG INHALATION (13:36)
--- NOTE | 2022-09-30 14:12 | HOMEO2EVAL ---
Evaluation was performed at [facility] Home Oxygen Evaluation RC: Home Oxygen (O2) Evaluation Start: 09/30/22 13:41 Freq: ONCE Status: Active Protocol: RPE Activity Type Activity Date Activity User E-sign Co-sign Detail Recorded Client Recorded Date Recorded By Document 09/30/22 13:40 DJO [email or web address] 09/30/22 14:12 DJO Document 09/30/22 13:45 [email or web address] [email or web address] 09/30/22 14:12 DJO Document 09/30/22 13:50 [email or web address] [email or web address] 09/30/22 14:12 DJO Document 09/30/22 13:55 [email or web address] [email or web address] 09/30/22 14:12 DJO Document 09/30/22 14:10 [email or web address] [email or web address] 09/30/22 14:12 DJO 09/30/22 09/30/22 09/30/22 13:40 13:45 13:50 Home O2 Evaluation [Oxygen] -Test Phase Resting Exercise Exercise -Oxygen Delivery Room Air Room Air Nasal Cannula -Oxygen Flow Rate (L/min) 1 [Pulse Oximetry] -Pulse Oximetry (90-100 %) 91 86 L 88 L [Pulse Rate] -Pulse Rate (60-100 beats/min) 94 108 H 112 H [Evaluation] -Activity Tolerance [Charges] -Treatment Charges O2 Evaluation - Inpatient 09/30/22 09/30/22 13:55 14:10 Home O2 Evaluation [Oxygen] -Test Phase Exercise Resting -Oxygen Delivery Nasal Cannula Room Air -Oxygen Flow Rate (L/min) 2 [Pulse Oximetry] -Pulse Oximetry (90-100 %) 91 92 [Pulse Rate] -Pulse Rate (60-100 beats/min) 114 H 89 [Evaluation] -Activity Tolerance Good [Charges] -Treatment Charges
--- NOTE | 2022-09-30 14:20 | PCRCNOTE ---
HOME O2 EVAL COMPLETE, 2L WITH ACTIVITY. SET UP WITH [employer]. PHONE NUMBER [phone]
--- NOTE | 2022-09-30 16:22 | P.DS_ITS ---
DS: Admitting Diagnosis Discharge Date 09/30/22 1622 Admitting Diagnosis COPD exacerbation Coronary artery disease, chronic Hypertension, chronic Peripheral vascular disease, chronic DS: Discharge Diagnosis Discharge Diagnosis (1) COPD exacerbation: Code(s): J44.1 - Chronic obstructive pulmonary disease with (acute) exacerbation Status: Acute Assessment and Plan: Acute exacerbation of chronic disease. Treated with scheduled duonebs Q4 initially, then changed to Q6 hours d/t ta chycardia No increased sputum or color change. No antibiotics administered at this time. CXR and CTA chest without infiltrates or consolidation. Hyperinflation noted on CXR. Home O2 evaluation showed desaturation <89% with activity requiring supplemental O2 2L with spO2 91% room air. (2) Anemia: Qualifiers: Anemia type: iron deficiency Iron deficiency anemia type: chronic blood loss Qualified Code(s): D50.0 - Iron deficiency anemia secondary to blood loss (chronic) Code(s): D64.9 - Anemia, unspecified Status: Acute Assessment and Plan: Recent hospitalization at [facility] for GI bleed with EGD work-up reported, but no colonoscopy. Hemoglobin on arrival 7.4 * Hemoglobin dropped 6.7 on 09/27/22 s/p 1 unit PRBC. * Fecal occult blood ordered but was not collected by the time of discharge. * GI consulted and patient underwent EGD that showed multiple superficial ulcers in the antrum and moderate gastritis. No mucosal bleeding noted. 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 Patient attributes weight loss to lack of eating due to shortness of breath * Dietary consult * continue regular diet and supplements. (4) Shortness of breath: Code(s): R06.02 - Shortness of breath Status: Acute Assessment and Plan: Presumed multifactorial from COPD, diastolic CHF, severe mitral valve regurgitation and severe anemia. * CTA negative for PE * BNP 2400 * Chest x-ray indicated COPD, no pulmonary infiltrates suggestive of pneumonia * Echo: ?EF of 50-55%, grade 1 diastolic dysfunction, severe mitral valve regurgitation, mitral valve thickened leaflets * Cardiology consulted and appreciate recommendations. Recommend ischemic work- up and evaluation for mitral valve repair/replacement after stable from a GI standpoint. * Improving with COPD management and post-transfusion (5) Coronary artery disease: Qualifiers: Associated angina: without angina Coronary Disease-Associated Artery/Lesion type: [place] artery [place] vs. transplanted heart: [place] heart Qualified Code(s): I25.10 - Atherosclerotic heart disease of [place] coronary artery without angina pectoris Code(s): I25.10 - Atherosclerotic heart disease of [place] coronary artery without angina pectoris Status: Chronic Assessment and Plan: Chronic, as above. H/O CABG. No acute chest pain continued crestor, imdur at home doses (6) Hypertension: Qualifiers: Hypertension type: primary hypertension Qualified Code(s): I10 - Essential (primary) hypertension Code(s): I10 - Essential (primary) hypertension Status: Chronic Assessment and Plan: Chronic, stable. continue home meds (7) Peripheral vascular disease: Code(s): I73.9 - Peripheral
--- NOTE | 2022-09-30 16:22 | PM.DS ---
DS: Admitting Diagnosis Discharge Date 09/30/22 1622 Admitting Diagnosis COPD exacerbation Coronary artery disease, chronic Hypertension, chronic Peripheral vascular disease, chronic DS: Discharge Diagnosis Discharge Diagnosis (1) COPD exacerbation: Code(s): J44.1 - Chronic obstructive pulmonary disease with (acute) exacerbation Status: Acute Assessment and Plan: Acute exacerbation of chronic disease. Treated with scheduled duonebs Q4 initially, then changed to Q6 hours d/t tachycardia No increased sputum or color change. No antibiotics administered at this time. CXR and CTA chest without infiltrates or consolidation. Hyperinflation noted on CXR. Home O2 evaluation showed desaturation <89% with activity requiring supplemental O2 2L with spO2 91% room air. (2) Anemia: Qualifiers: Anemia type: iron deficiency Iron deficiency anemia type: chronic blood loss Qualified Code(s): D50.0 - Iron deficiency anemia secondary to blood loss (chronic) Code(s): D64.9 - Anemia, unspecified Status: Acute Assessment and Plan: Recent hospitalization at [facility] for GI bleed with EGD work-up reported, but no colonoscopy. Hemoglobin on arrival 7.4 Hemoglobin dropped 6.7 on 09/27/22 s/p 1 unit PRBC. Fecal occult blood ordered but was not collected by the time of discharge. GI consulted and patient underwent EGD that showed multiple superficial ulcers in the antrum and moderate gastritis. No mucosal bleeding noted. 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 Patient attributes weight loss to lack of eating due to shortness of breath Dietary consult continue regular diet and supplements. (4) Shortness of breath: Code(s): R06.02 - Shortness of breath Status: Acute Assessment and Plan: Presumed multifactorial from COPD, diastolic CHF, severe mitral valve regurgitation and severe anemia. CTA negative for PE BNP 2400 Chest x-ray indicated COPD, no pulmonary infiltrates suggestive of pneumonia Echo: ?EF of 50-55%, grade 1 diastolic dysfunction, severe mitral valve regurgitation, mitral valve thickened leaflets Cardiology consulted and appreciate recommendations. Recommend ischemic work-up and evaluation for mitral valve repair/replacement after stable from a GI standpoint. Improving with COPD management and post-transfusion (5) Coronary artery disease: Qualifiers: Associated angina: without angina Coronary Disease-Associated Artery/Lesion type: [place] artery [place] vs. transplanted heart: [place] heart Qualified Code(s): I25.10 - Atherosclerotic heart disease of [place] coronary artery without angina pectoris Code(s): I25.10 - Atherosclerotic heart disease of [place] coronary artery without angina pectoris Status: Chronic Assessment and Plan: Chronic, as above. H/O CABG. No acute chest pain continued crestor, imdur at home doses (6) Hypertension: Qualifiers: Hypertension type: primary hypertension Qualified Code(s): I10 - Essential (primary) hypertension Code(s): I10 - Essential (primary) hypertension Status: Chronic Assessment and Plan: Chronic, stable. continue home meds (7) Peripheral vascular disease: Code(s): I73.9 - Peripheral vascular disease, unspecified Status: Chronic Assessment and Plan: Chronic, stable. Continued home medications as above. On Eliquis as above (8) Severe mitral regurgitation: Code(s): I34.0 - Nonrheumatic mitral (valve) insufficiency Status: Chronic Assessment and Plan: Noted on Echocardiogram. Severe. Avoid hypotension. (9) Hypoxia: Code(s): R09.02 - Hypo
== END 2022-09-30 15:15 | disposition home or self-care (01) ==
LOC: ANHED 17:16 → ANH3MED 23:03
PROVIDERS: Family Medicine; Internal Medicine Critical Care Medicine; Internal Medicine Gastroenterology; Nurse Practitioner Family; Admitting Provider Internal Medicine; Emergency Provider Emergency Medicine; PCP Family Medicine; Visit Provider Hospitalist
PROC: 0DJ08ZZ Inspection of Upper Intestinal Tract, Via Natural or Artificial Opening Endoscopic (ICD-10-PCS; CPT 43235; principal; 2022-09-29 15:00)
DX: K21.9 Gastro-esophageal reflux disease without esophagitis (principal); K25.9 Gastric ulcer, unspecified as acute or chronic, without hemorrhage or perforation; B37.81 Candidal esophagitis; K29.70 Gastritis, unspecified, without bleeding; K25.3 Acute gastric ulcer without hemorrhage or perforation; R07.9 Chest pain, unspecified; D50.9 Iron deficiency anemia, unspecified; D64.9 Anemia, unspecified; K64.8 Other hemorrhoids; I25.110 Atherosclerotic heart disease of native coronary artery with unstable angina pectoris; Z95.1 Presence of aortocoronary bypass graft; I10 Essential (primary) hypertension; I34.0 Nonrheumatic mitral (valve) insufficiency; J44.1 Chronic obstructive pulmonary disease with (acute) exacerbation; Z99.81 Dependence on supplemental oxygen; Z20.822 Contact with and (suspected) exposure to COVID-19; I73.9 Peripheral vascular disease, unspecified; R63.4 Abnormal weight loss; Z68.1 Body mass index [BMI] 19.9 or less, adult; Z87.891 Personal history of nicotine dependence; Z95.820 Peripheral vascular angioplasty status with implants and grafts; Z79.01 Long term (current) use of anticoagulants; Z79.51 Long term (current) use of inhaled steroids; Z79.82 Long term (current) use of aspirin; Z79.891 Long term (current) use of opiate analgesic; Z79.899 Other long term (current) drug therapy; Z82.49 Family history of ischemic heart disease and other diseases of the circulatory system; Z82.5 Family history of asthma and other chronic lower respiratory diseases
CPT/HCPCS: 43239; 45378; 36415; 36430; 36600; 71046; 71275; 80048; 80053; 81001; 82375; 82607; 82728; 82746; 82805; 83050; 83540; 83550; 83880; 84466; 84484; 85014; 85018; 85025; 85027; 85055; 85380; 85610; 85730; 86850; 86900; 86901; 86923; 87636; 88305; 88312; 88342; 93005; 93306; 94618; 94640; 96374; 99285; A9270; G0378; J1756; J2370; J2405; J2704; J2930; J7050; J7120; P9016; Q9967

== ENCOUNTER 2022-12-05 09:47 | Inpatient (IN) | payer OTHER, SELFPAY ==
[2022-12-05] VITALS (49 sets, daily range): BP systolic 58–144; BP diastolic 39–123; PULSE 66–90; RESP 15–27; TEMP 36.4–36.6; O2SAT 86–100; BMI 15.9
--- NOTE | ~2022-12-05 | XR_ITS ---
Portable chest x-ray Comparison: 12/06/2022 Clinical History: Pneumothorax Findings: Right-sided central venous line is in satisfactory position. Small right pneumothorax is u nchanged. There is extensive chronic interstitial disease with patchy groundglass opacity bilaterally . Cardiomediastinal silhouette is stable, status post CABG. Bones and soft tissues are unremarkable. Impression: Stable small right pneumothorax. Chronic interstitial disease/COPD change with patchy groundglass opacity bilaterally, stable from areli or exam. Correlate for superimposed pneumonia or pulmonary edema. Reviewed, dictated and finalized at location . ORATE DIRECTOR TALENT ASSESSMENT Impression: Stable small right pneumothorax. Chronic interstitial disease/COPD change with patchy groundglass opacity bilate rally, stable from prior exam. Correlate for superimposed pneumonia or pulmonar y edema.
--- NOTE | ~2022-12-05 | XR_ITS ---
EXAMINATION: XR chest 1V portable DATE: 12/05/2022 16:48 INDICATION: Right pneumothorax. Shortness of breath. TECHNIQUE: A single frontal view of the chest was obtained. COMPARISON: Chest single view at 4:04 PM FINDINGS: The lungs are hyperexpanded with lucencies, consistent with emphysema. There is a small rig ht pneumothorax. There is mild scarring at the lung apices. There is mild atelectasis in right lower lung zone. No pleural effusion. The heart size is normal. Median sternotomy wires and mediastinal tg gical clips are seen, likely from prior coronary artery bypass grafting. There are surgical clips in the axillae. A right upper extremity peripherally inserted central venous catheter (PICC) is seen wit h tip in the superior vena cava. IMPRESSION: 1. Worsened small right pneumothorax. 2. Severe emphysema. 3. Mild scarring at the lung apices and mild atelectasis in right lower lung zone. Reviewed, dictated and finalized at location A. GER [employer] SALES IMPRESSION: 1. Worsened small right pneumothorax. 2. Severe emphysema. 3. Mild scarring at the lung apices and mild atelectasis in right lower lung zo ne.
--- NOTE | ~2022-12-05 | XR_ITS ---
EXAMINATION: XR chest 1V portable INDICATION: Pneumonia, pneumothorax TECHNIQUE: Portable AP chest at 1257 hours COMPARISON: 12/07/2022 FINDINGS: A tiny right apical pneumothorax persists with slight decrease in size. A right upper extre mity PICC ends with this tip in the midsuperior vena cava. There are patchy airspace opacities throug hout the lungs with slight improvement in the left midlung zone and slight worsening in the right low er lung zone. There is a small right pleural effusion. The heart size is normal. Median sternotomy wi res and mediastinal surgical clips are seen, likely from prior coronary artery bypass grafting. Surgi kari clips project over the upper lung graham bilaterally. IMPRESSION: 1. Small right apical pneumothorax with slight decrease in size. 2. Bilateral airspace opacities of the lungs with slight worsening in the right lung base slight impr ovement in the left midlung zone, consistent with atelectasis versus pneumonia. Reviewed, dictated and finalized at location L. PAPER PRINTER IMPRESSION: 1. Small right apical pneumothorax with slight decrease in size. 2. Bilateral airspace opacities of the lungs with slight worsening in the right lung base slight improvement in the left midlung zone, consistent with atelect asis versus pneumonia.
--- NOTE | ~2022-12-05 | CT_ITS ---
EXAMINATION: CT diagnostic chest wo con DATE: 12/10/2022 15:26 INDICATION: pneumothorax, COPD, pneumonia TECHNIQUE: Computed tomography (CT) of the chest was performed without intravenous contrast. Automate d exposure control and iterative reconstruction technique were employed. The dose-length product was 140.40 mGy-cm. COMPARISON: X-ray chest, same date. CT chest 09/18/2022. FINDINGS: CHEST: Thoracic aorta: No significant dilation. Moderate atherosclerotic calcification. Lung parenchyma and airways: Severe emphysematous change. Patchy areas of groundglass opacity in the anterior lungs. Thickening of the bronchovascular interstitium and mild diffuse bronchial dilation. M inimal airway debris in dependent lower lobe bronchi. Minimal scattered tree-in-bud opacities. Calcif ied granulomas. Subsegmental peripheral areas of atelectasis and/or consolidation in the right upper lobe and right lung base. Thoracic inlet, axillae and chest wall: No thyroid or soft tissue mass. No axillary lymphadenopathy. Changes of prior CABG. Bilateral subclavian grafts extend inferiorly along the bilateral aspects of t he lateral chest wall, patency cannot be assessed without contrast. Right upper extremity PICC termin ating in the superior vena cava. Mediastinum: No mass. Prominent precarinal lymph nodes measuring up to 7 mm in short axis diameter. Heart and pericardium: Normal heart size. No pericardial effusion. Coronary artery calcifications: Heavy. Pleura: Small volume right pleural fluid collection. No mass. Upper abdomen: No significant finding. Thoracic bones: No acute osseous finding in the chest. IMPRESSION: Small right apical pneumothorax. Small right pleural effusion. Scattered groundglass opacities may re present interstitial edema or atypical infection, overlying severe emphysematous change and bronchiti s. Minimal right upper lung and right basilar atelectasis/consolidation. Reviewed, dictated and finalized at location K. AL WORK CASE MANAGER IMPRESSION: Small right apical pneumothorax. Small right pleural effusion. Scattered ground glass opacities may represent interstitial edema or atypical infection, overlyi ng severe emphysematous change and bronchitis. Minimal right upper lung and rig ht basilar atelectasis/consolidation.
--- NOTE | ~2022-12-05 | XR_ITS ---
EXAMINATION: XR chest 1V portable DATE: 12/05/2022 20:58 INDICATION: Pneumothorax TECHNIQUE: frontal view of the chest was obtained. COMPARISON: Chest radiograph dated 12/05/2022 at 4:42 PM FINDINGS: No significant interval change in a small right pleural effusion with separation of the pleural yulissa ns at the right apex measuring approximately 3.4 cm versus 3.3 cm at the time of the prior study. Add itional small component of the pneumothorax along the lateral right lower lung zone is also unchanged with separation of the pleural margin measuring 9 mm, previously 8 mm. Persistent airspace opacity m edial right upper lung zone likely representing secondary atelectasis. Mild hyperexpansion of the destinee gs consistent with emphysema better appreciated on prior CT. A couple small calcified nodules at the left lower lung zone consistent with old granulomatous disease. No pulmonary edema, pleural effusion or left-sided pneumothorax. The cardiomediastinal silhouette is normal and midline. Median sternotomy wires and mediastinal surgical clips are seen, likely from prior coronary artery bypass grafting. Ad ditional surgical clips project over the left axilla/infraclavicular region. Status post distal left clavicle resection. Right upper extremity peripherally inserted central venous catheter (PICC) tip a t the mid superior vena cava. IMPRESSION: 1. No significant interval change in a small right pneumothorax. 2. Persistent opacity at the medial right upper lung zone likely related to atelectasis. 3. Emphysema. Reviewed, dictated and finalized at location A. GN COORDINATOR IMPRESSION: 1. No significant interval change in a small right pneumothorax. 2. Persistent opacity at the medial right upper lung zone likely related to ate lectasis. 3. Emphysema.
--- NOTE | ~2022-12-05 | XR_ITS ---
EXAMINATION: XR chest 1V portable DATE: 12/06/2022 17:48 INDICATION: Shortness of breath and hemoptysis TECHNIQUE: frontal view of the chest was obtained. COMPARISON: Chest radiograph dated 12/06/2022 FINDINGS: Right upper extremity peripherally inserted central venous catheter (PICC) tip at the caudal superio r vena cava. Slight decrease in size of a small primarily apical right pneumothorax with additional small componen t at the lateral right lower lung zone. Interval increase in bilateral indistinct interstitial and ai rspace opacities most prominent in the right upper, left mid and bilateral lower lung zones. No left pneumothorax or definitive pleural effusion. The cardiomediastinal silhouette is normal. Median jhaveri otomy wires and mediastinal surgical clips are seen, likely from prior coronary artery bypass graftin g. Surgical clips at the bilateral axilla/infraclavicular regions. IMPRESSION: 1. Increasing bilateral interstitial and airspace opacities which could represent pulmonary edema or pneumonia. 2. Slight decrease in a small right pneumothorax. Reviewed, dictated and finalized at location A. FACTURING LABORER IMPRESSION: 1. Increasing bilateral interstitial and airspace opacities which could represe nt pulmonary edema or pneumonia. 2. Slight decrease in a small right pneumothorax.
--- NOTE | ~2022-12-05 | XR_ITS ---
XR chest port-a-cath/central DATE: 12/05/2022 16:08 INDICATION: PICC line insertion TECHNIQUE: Portable supine AP view on December 05, 2022 at 1604 hours COMPARISON: December 05, 2022 AP and lateral chest FINDINGS: There is interval placement of a right upper extremity PIC catheter, the tip overlying supe rior vena cava. There is interval mild right pneumothorax since earlier today. There is some infiltrate in the right apical region not evident on earlier today. Bilateral hyperinflation system of COPD. Heart size is within normal range. Is aortic arch calcification. Status post sternotomy and probable coronary artery bypass graft surgery. Aortic arch calcification. Diffuse osteopenia. Bilateral axillary surgical clips. Status post resection of the lateral aspect of left clavicle. IMPRESSION: Right upper stomach the catheter placement, tip overlying superior vena cava Interval mild right pneumothorax and right apical infiltrate since this morning Reviewed, dictated and finalized at Location A. Reviewed, dictated and finalized at location A. NICAL SUPPORT REPRESENTATIVE
--- NOTE | ~2022-12-05 | XR_ITS ---
Portable chest x-ray Comparison: 12/08/2022 Clinical History: Pneumothorax Findings: Right-sided PICC line is in satisfactory position. Small right apical pneumothorax is unch anged. Patchy areas of groundglass opacity are present bilaterally, unchanged. Probable small right p leural effusion with underlying COPD pattern. Cardiomediastinal silhouette is stable. Bones and soft tissues are unremarkable. Impression: Patchy areas of groundglass pulmonary disease bilaterally are consistent with pneumonia, unchanged. Small right hydropneumothorax, unchanged. Underlying COPD. Stable support line. Reviewed, dictated and finalized at location M. RIM CONTROLLER Impression: Patchy areas of groundglass pulmonary disease bilaterally are consistent with p neumonia, unchanged. Small right hydropneumothorax, unchanged. Underlying COPD. Stable support line.
--- NOTE | ~2022-12-05 | XR_ITS ---
XR chest 1V portable DATE: 12/11/2022 07:43 INDICATION: Pneumothorax TECHNIQUE: Portable upright AP chest on December 11, 2022 is no 0735 hours COMPARISON: December 10, 2022 CT chest September 09, 2023 portable AP chest FINDINGS: Slight residual right apical pneumothorax, mild right pleural effusion. Stable or slightly improved patchy multifocal bilateral pulmonary infiltrates. Moderate hyperinflation, relative flattening the diaphragm, suggesting COPD. Normal heart size. Status post sternotomy and probable CABG. Aortic arch calcification. Diffuse osteopenia. Surgical clips, bilateral axillary areas, likely due to axillary node dissection. Right subclavian central venous catheter tip overlies superior vena cava. IMPRESSION: Slight residual right apical pneumothorax Patchy bilateral pulmonary infiltrates COPD Reviewed, dictated and finalized at location A. DING MAINTENANCE SUPERINTENDENT
--- NOTE | ~2022-12-05 | XR_ITS ---
Clinical Indication: Shortness of breath PA and lateral views of the chest: Comparison: 09/26/2022 Findings: The lungs are clear, without evidence of focal consolidation or pleural effusion. COPD sandra raymundo present. Cardiomediastinal silhouette is stable, status post CABG. Bones and soft tissues are unr emarkable. Impression: COPD. No acute abnormality evident. Reviewed, dictated and finalized at location M. RVISOR ENROBING Impression: COPD. No acute abnormality evident.
--- NOTE | ~2022-12-05 | XR_ITS ---
XR chest 2V 12/14/2022 09:49 Indication: Right pneumothorax. Shortness of breath. Procedure: AP portable chest, upright Comparison: Comparison to multiple prior studies sequentially, with oldest reviewed study dated 12/10. Findings: Decreased size of small right apical hydropneumothorax. Status post median sternotomy for C ABG. Central line tip in the SVC. Heart size normal. Right basilar airspace disease may represent ate lectasis or pneumonia. Small right pleural effusion. The lungs are hyperinflated which is consistent with, but not diagnostic of chronic obstructive pulmonary disease. Impression: 1: Decreased size of small right apical hydropneumothorax compared with 12/10/2022. 2: Right basilar airspace disease may represent atelectasis and/or pneumonia. Reviewed, dictated and finalized at location A. INE EDITOR Impression: 1: Decreased size of small right apical hydropneumothorax compared with 12/10/19 23. 2: Right basilar airspace disease may represent atelectasis and/or pneumonia.
--- NOTE | ~2022-12-05 | XR_ITS ---
Portable chest x-ray Comparison: 12/11/2022 Clinical History: Pneumothorax, pneumonia Findings: Right-sided central venous line is unchanged. Small right hydropneumothorax is probably si milar to prior exam. Patchy, hazy bilateral airspace disease is again present. Probable COPD. Cardio mediastinal silhouette is stable. Bones and soft tissues are unremarkable. Impression: Stable small right hydropneumothorax. Stable patchy, hazy bilateral airspace disease, compatible with pneumonia. COPD. Stable support line. Reviewed, dictated and finalized at location M. T HAND Impression: Stable small right hydropneumothorax. Stable patchy, hazy bilateral airspace disease, compatible with pneumonia. COPD. Stable support line.
--- NOTE | ~2022-12-05 | XR_ITS ---
EXAMINATION: XR chest 1V portable DATE: 12/06/2022 11:43 INDICATION: Right pneumothorax. TECHNIQUE: A single frontal view of the chest was obtained. COMPARISON: Chest single view 12/05/2022 FINDINGS: There is a moderate-sized right pneumothorax. There is mild atelectasis in right lower lung zone. There are airspace opacities at right lung apex. No pleural effusion. The heart size is normal . Median sternotomy wires and mediastinal surgical clips are seen, likely from prior coronary artery bypass grafting. Surgical clips overlie the upper chest bilaterally. A right upper extremity peripher ally inserted central venous catheter (PICC) is seen with tip in the superior vena cava. IMPRESSION: 1. Moderate-sized right pneumothorax with mild worsening. 2. Persistent airspace opacities at right lung apex, likely hemorrhage. Reviewed, dictated and finalized at location A. R OPERATOR
--- NOTE | ~2022-12-05 | XR_ITS ---
XR chest 1V portable DATE: 12/10/2022 05:58 INDICATION: Pulmonary infiltrates and pneumothorax TECHNIQUE: Portable upright AP chest on December 10, 2022 at 0539 hours COMPARISON: December 09, 2022 portable AP chest at 0515 hours December 07, 2021 portable AP chest at 0511 hours FINDINGS: Small residual right apical pneumothorax, mildly improved since December 09, 2022. Bilateral hyperinflation consistent with COPD. Scattered patchy bilateral pulmonary infiltrates, most prominent in the right upper and right lower lung graham. Mild right pleural effusion. Right upper extremity PIC catheter tip overlies superior vena cava. Normal heart size. Aortic arch calcification. Surgical clips overlie left axillary area. Diffuse osteopenia. Status post resection lateral aspect of left clavicle. IMPRESSION: Small right apical pneumothorax, mildly improved since December 09, 2022 Persistent patchy bilateral pulmonary infiltrates, small right pleural effusion COPD Reviewed, dictated and finalized at location A. ENT MIXER
--- NOTE | 2022-12-05 10:02 | ECG_ITS ---
Measurements Intervals [place] Rate: 83 P: 61 LA: 121 QRS: 69 QRSD: 87 T: 52 QT: 401 QTc: 472 Interpretive Statements SINUS RHYTHM BASELINE ARTIFACT NONSPECIFIC ST ABNORMALITY BORDERLINE ECG COMPARED TO ECG 09/26/2022 12:48:02 NO SIGNIFICANT CHANGES Electronically Signed On 12-05-2022 16:18:39 [facility]ICE [facility]IN[facility] by Alec Browning M.D.
[2022-12-05 10:41] LABS: Basophils Percent Auto 0.3 % (0.2-1.2); Eosinophils Percent Auto 0.4 % (0-4.4); Hematocrit 38.6 % (37.0-47.0); Hemoglobin 11.6 g/dL (12.0-15.0); Immature Granulocyte Absolute 0.02 K/mm3 (0.00-0.031); Immature Granulocyte Percent A 0.3 % (0-0.5); Lymphocytes Absolute Auto 0.82 K/mm3 (0.9-3.2); Lymphocytes Percent Auto 11.3 % (18.3-44.2); Mean Corpuscular HGB Conc 30.1 g/dl (32-36); Mean Corpuscular Hemoglobin 30.5 pg (26-34); Mean Corpuscular Volume 101.6 fl (80-100); Mean Platelet Volume 12.8 fl (7.4-10.4); Monocytes Absolute Auto 0.5 K/mm3 (0.1-0.6); Monocytes Percent Auto 7.1 % (2.6-8.5); Neutrophils Absolute Auto 5.9 K/mm3 (1.3-6.7); Neutrophils Percent Auto 80.6 % (45.5-73.1); Platelet Count Result 149 k/mm3 (150-375); Red Cell Distribution Width 16.5 % (11.5-14.5); White Blood Count 7.3 K/mm3 (4.5-10.0)
[2022-12-05 10:47] LABS: Alanine Aminotransferase 19 U/L (6-35); Albumin Level 3.5 g/dL (3.5-5.1); Alkaline Phosphatase 75 U/L (38-126); Aspartate Amino Transferase 32 U/L (14-36); Bilirubin,Total 0.4 mg/dL (0.2-1.3); Blood Urea Nitrogen 21 mg/dL (7-17); Calcium 8.3 mg/dL (8.4-10.2); Carbon Dioxide > 40 mmol/L (22-30); Chloride 93 mmol/L (98-107); Estimated CRCL calculation 61 ml/min; Estimated Glomerular Filt Rate > 60; Glucose 115 mg/dL (65-110); Potassium 3.8 mmol/L (3.4-5.0); Sodium 132 mmol/L (137-145)
[2022-12-05 11:19] LABS: Lactic Acid Reflex 0.8 mmol/L (0.7-2.0)
[2022-12-05 11:24] LABS: CRP 1.7 mg/dL (<1.0)
[2022-12-05 11:28] LABS: INR 1.4; Partial Thromboplastin Time 36.2 SECONDS (22.3-36.8); Prothrombin Time 16.8 Seconds (11.1-14.7)
[2022-12-05 11:29] LABS: NT Pro B Type Natriuretic Pept 975 pg/mL (19.9-100)
[2022-12-05] MEDS: ALBUTEROL SULFATE NEB 2.5 MG/3 ML INH INHALATION ×2 (11:36→20:30)
[2022-12-05] MEDS: IPRATROPIUM BR 0.02% INH SOLN 0.5 MG/2.5 ML VIAL INHALATION ×2 (11:36→20:30)
--- NOTE | 2022-12-05 11:42 | ED.SOB ---
HPI - SOB/Dyspnea General Chief Complaint: Shortness of Breath/Dyspnea <Kiki Contreras PA-C - Last Filed: 12/05/22 18:00> Stated Complaint: nausea, increased congestion <Kiki Contreras PA-C - Last Filed: 12/05/22 18:00> Time Seen by Provider: 12/05/22 10:28 <Kiki Contreras PA-C - Last Filed: 12/05/22 18:00> Source: patient <LOGAN De Last Filed: 12/05/22 18:00> Mode of arrival: ambulatory <LOGAN De Last Filed: 12/05/22 18:00> Limitations: no limitations <LOGAN De Last Filed: 12/05/22 18:00> History of Present Illness HPI Narrative: This is a 72 year old female that presents to the ER for shortness of breath ongoing over the last couple of days. Associated with a productive cough. Reports history of COPD. She is on oxygen via nasal cannula chronically. Denies fever, lower extremity edema, or chest pain. <Kiki Contreras PA-C - Last Filed: 12/05/22 18:00> Related Data Home Medications: Home Medications Medication Instructions Recorded Confirmed hydrocodone 5 mg-acetaminophen 325 1 tablet PO Q4H PRN Pain (Scale 09/26/22 09/26/22 mg tablet Score 4-6) isosorbide mononitrate 30 mg 30 mg PO DAILY 09/26/22 09/26/22 tablet,extended release 24 hr albuterol sulfate 2.5 mg/3 mL 2.5 mg inhalation Q6H PRN 12/05/22 12/05/22 (0.083 %) solution for nebulization Shortness Of Breath Or Wheezing albuterol sulfate 90 mcg/actuation 2 puff inhalation Q6H PRN 12/05/22 12/05/22 aerosol inhaler Shortness Of Breath Or Wheezing alendronate 70 mg tablet 70 mg PO WEEKLY 12/05/22 12/05/22 apixaban 5 mg tablet (Eliquis) 5 mg PO BID 12/05/22 12/05/22 aspirin 81 mg capsule 81 mg PO DAILY 12/05/22 12/05/22 donepezil 10 mg tablet 10 mg PO DAILY 12/05/22 12/05/22 doxycycline hyclate 100 mg capsule 100 mg PO DAILY 12/05/22 12/05/22 escitalopram oxalate 5 mg tablet 5 mg PO DAILY 12/05/22 12/05/22 famotidine 20 mg tablet 20 mg PO DAILY 12/05/22 12/05/22 fluticasone 250 mcg-salmeterol 50 1 inh inhalation Q12H 12/05/22 12/05/22 mcg/dose blistr powdr for inhalation (Advair Diskus) furosemide 20 mg tablet 20 mg PO DAILY 12/05/22 12/05/22 metoprolol tartrate 25 mg tablet 25 mg PO Q12H 12/05/22 12/05/22 mirtazapine 15 mg tablet 15 mg PO HS 12/05/22 12/05/22 naloxone 4 mg/actuation nasal 1 spray intranasal Q2-3M PRN 12/05/22 12/05/22 spray (Narcan) Opioid Reversal pantoprazole 40 mg tablet,delayed 40 mg PO Q12H 12/05/22 12/05/22 release pregabalin 150 mg capsule 150 mg PO Q12H 12/05/22 12/05/22 ropinirole 0.5 mg tablet 0.75 mg PO BID 12/05/22 12/05/22 rosuvastatin 40 mg tablet 40 mg PO HS 12/05/22 12/05/22 <Kiki Contreras PA-C - Last Filed: 12/05/22 18:00> Allergies/Adverse Reactions: Allergies Allergy/AdvReac Type Severity Reaction Status Date / Time No Known Allergies Allergy Verified 09/29/22 13:47 <Kiki Contreras PA-C - Last Filed: 12/05/22 18:00> Review of Systems Review of Systems: CONSTITUTIONAL: Denies fever ENT: Reports rhinorrhea, congestion CARDIOVASCULAR: Denies chest pain, or edema. RESPIRATORY: Reports cough and dyspnea. GASTROINTESTINAL: Reports nausea <LOGAN De Last Filed: 12/05/22 18:00> All systems reviewed & are unremarkable except as noted in HPI and below <Kiki Contreras PA-C - Last Filed: 12/05/22 18:00> PMFSH Past Medical History Medical History: Medical History Acute on chronic anemia Chronic anticoagulation COPD exacerbation Coronary artery disease Dementia GI bleed Hypertension Peripheral vascular disease Severe mitral regurgitation <Kiki Contreras PA-C - Last Filed: 12/05/22 18:00> Surgical History Surgical History: Surgical History H/O cataract extraction H/O tubal ligation Hx of CABG 9 vessel S/P femoral-popliteal bypass surgery yemi S/P tonsillectomy
[2022-12-05 11:46] LABS: Influenza A QL RT-PCR Negative (Negative); Influenza B QL RT-PCR Negative (Negative); SARS-CoV-2 RNA PCR Negative
[2022-12-05] MEDS: SODIUM CHLORIDE 0.9% IV 500 ML 999 ML IV CONT (11:48)
[2022-12-05 11:50] LABS: Alveolar/Arterial O2 Gradient 65.3 mmHg; Base Excess ABG 15.5 mEq/l (+/-2.0); Carboxyhemoglobin 1.6 % THb (0-2.0); Fractional Inspired Oxygen 32 %; HCO3 ABG 43.9 mEq/l (22.0-26.0); Methemoglobin ABG 0.2 %THb (0-1.5); Oxygen Content ABG 15.5 %vol (16.0-22.0); Oxygen Saturation ABG 93.7 % (95.0-100.0); Oxyhemoglobin 92.1 % THb (90.0-100.0); PO2 ABG 73.4 mmHg (80.0-100.0); PO2 FiO2 Ratio Arterial Blood 2.29 %; Reduced Hemoglobin 6.1 %THb (0-5.0); Total Hemoglobin 11.9 g/dL (12.0-18.0); pH ABG 7.377 (7.350-7.450)
[2022-12-05 11:51] LABS: Device NASAL CANNULA; PCO2 ABG 76.5 mmHg (35.0-45.0); Site Drawn RIGHT BRACHIAL
[2022-12-05] MEDS: SODIUM CHLORIDE 0.9% IV 1,000 ML 999 ML IV CONT ×2 (12:13→14:26)
[2022-12-05] MEDS: ALBUTEROL SULFATE NEB 2.5 MG/3 ML INH 15 MG INHALATION (12:44)
[2022-12-05] MEDS: IPRATROPIUM BR 0.02% INH SOLN 0.5 MG/2.5 ML VIAL 1.5 MG INHALATION (12:44)
--- NOTE | 2022-12-05 14:15 | PM.IMHP ---
H&P: HPI History of Present Illness Date/Time: 12/05/22 14:15 Chief Complaint: Shortness of breath Narrative: This is a 72-year-old female patient who has a history of COPD and is on oxygen chronically. The patient has also had multiple problems with ARTERIAL INSUFFICIENCY. She has bilateral femoral popliteal bypass grafts. Her hemoglobin is 11.6 hematocrit 38.6. She is afebrile and without a white count. Platelet count 149. Initial ABGs pH 7.377 CO2 was 76.5 PO2 73 repeat ABGs pH 7.388 CO2 was 56.3 and PO2 was 62.4. The patient became hypotensive and a central line was attempted without success. The patient received a PICC line instead. Sodium 132. C reactive protein 1.7. Influenza A/B and COVID are all negative. Initial chest x-ray was read as COPD. After PICC line it was read as tip overlying superior vena cava ir interval mild right pneumothorax and right apical infiltrate areas since this morning. Chest x-ray shows worsened small right pneumothorax. Severe emphysema mild scarring at the lung apex is and mild atelectasis and right lower lung zones. Surgery has been consulted. Repairing Calibrator has been consulted as well. The patient is in ICU on vasopressors. The patient was given Rocephin and azithromycin in the emergency room. She was given 3 IV boluses of normal saline in the emergency room, she was given dual nebulizer treatments, she was given Solu-Medrol, and she was given Protonix. The patient is being admitted to observation status on the date of service of 12/05/2022. Review of Systems Review of Systems: See HPI All systems reviewed & are unremarkable except as noted in HPI and below Constitutional: Constitutional: Reports as per HPI and Reports no additional constitutional complaints Eyes: Eyes: Reports as per HPI and Reports no additional eye complaints ENT: Reports system reviewed and no additional complaints, except as documented and Reports Normal hearing present Cardiovascular: Cardiovascular: Reports no additional cardiovascular complaints Respiratory: Respiratory: Reports no additional respiratory complaints and Reports no additional respiratory complaints Gastrointestinal: Gastrointestinal: Reports as per HPI and Reports no additional gastrointestinal complaints Musculoskeletal: Musculoskeletal: Reports no additional musculoskeletal complaints Integumentary/Breasts: Skin/Breast: Reports system reviewed and no additional complaints, except as docu and Reports as per HPI Neurologic: Reports system reviewed and no additional complaints, except as documented, Reports as per HPI and Reports Normal hearing present Psychiatric: Psychiatric: Reports no additional psychiatric complaints and Reports as per HPI Endocrine: Endocrine: Reports no additional endocrine complaints Hematologic/Lymphatic: Hematologic/Lymphatic: Reports no additional hematologic/lymphatic complaints Allergic/Immunologic: Allergic/Immunologic: Reports no additional allergic/immunologic complaints [facility] Past Medical History Medical History Acute on chronic anemia Chronic anticoagulation COPD exacerbation Coronary artery disease Dementia GI bleed Hypertension Peripheral vascular disease Severe mitral regurgitation Surgical History Surgical History H/O cataract extraction H/O tubal ligation Hx of CABG 9 vessel S/P femoral-popliteal bypass surgery yemi S/P tonsillectomy Family History Family History Father Acute myocardial infarction Cerebrovascular accident Congestive heart failure Hypertension Mother Acute myocardial infarction History of blood clots Congestive heart failure Hypertension Sibling Asthma Social History Social History (Updated 12/05/22 @ 20:45 by Michelle Gaytan NP) Social History: The patient is and has 2 children.
[2022-12-05] MEDS: PANTOPRAZOLE SODIUM IV 40 MG VIAL IV PUSH (14:27)
[2022-12-05] MEDS: methylPREDNISolone SOD SUCC 125 MG VIAL IV PUSH (14:28)
[2022-12-05] MEDS: NOREPINEPHRINE 8 MG/D5W 250 ML 8 MG/250 ML BAG 9.38 MG IV CONT ×2 (14:36→18:25)
[2022-12-05] MEDS: LIDOCAINE HCL 1% PF INJ 5 ML VIAL INFILTRATE (15:45)
[2022-12-05 16:37] LABS: Base Excess ABG 6.8 mEq/l (+/-2.0); Carboxyhemoglobin 1.2 % THb (0-2.0); Fractional Inspired Oxygen 25 %; HCO3 ABG 33.2 mEq/l (22.0-26.0); Methemoglobin ABG 0.1 %THb (0-1.5); Oxygen Content ABG 14.2 %vol (16.0-22.0); Oxygen Saturation ABG 91.2 % (95.0-100.0); Oxyhemoglobin 90.5 % THb (90.0-100.0); PCO2 ABG 56.3 mmHg (35.0-45.0); PO2 ABG 62.4 mmHg (80.0-100.0); Reduced Hemoglobin 8.2 %THb (0-5.0); Total Hemoglobin 11.1 g/dL (12.0-18.0); pH ABG 7.388 (7.350-7.450)
[2022-12-05 16:38] LABS: Device HIGH FLOW THERAPY; Site Drawn LEFT BRACHIAL
--- NOTE | 2022-12-05 17:20 | ADMGEN ---
This patient, Elena Sanon, was admitted to Intensive Care Unit-5. Patient/family oriented to hospital policies and general routines including ID bracelet, bed and alarms, visiting hours, pain management, procedures, bathroom and other care routines, personal items, smoking policy, room service/diet, and visiting hours. Information on how to activate the Rapid Response Team has been discussed. Patient/Family are encouraged to report perceived risks to care and to ask questions if they do not understand what they are told or what they should do.
[2022-12-05] MEDS: FUROSEMIDE INJ 40 MG/4 ML VIAL 20 MG IV PUSH (19:50)
[2022-12-05 21:10] LABS: Appearance Urine Clear (Clear); Bilirubin Urine Negative (Negative); Blood Urine Trace-intact (Negative); Color Urine Yellow (Yellow); Glucose Urine UA Negative (Negative); Ketones Urine Negative (Negative); Leukocyte Esterase Ur Negative LEU/UL (NEGATIVE); Nitrate Urine Negative (Negative); Protein Urine 1+ mg/dL (Negative); Specific Grav Ur 1.015 (1.001-1.035); Urobilinogen Urine 0.2 mg/dL (<2.0)
[2022-12-05 21:19] LABS: Bacteria Urine Trace /hpf; Mucus Urine Rare /lpf; RBC Urine 0-2 /hpf (0-2); WBC Urine 0-3 /hpf (0-3)
[2022-12-05 21:23] LABS: Add Urine Microscopic? YES
[2022-12-05] MEDS: CENTRAL LINE FLUSH 10 ML IV PUSH (22:23)
[2022-12-05] MEDS: MIRTAZAPINE 15 MG TABLET PO (22:38)
[2022-12-05] MEDS: PREGABALIN (*CRX) 75 MG CAPSULE 150 MG PO (22:38)
[2022-12-05] MEDS: APIXABAN 5 MG TABLET PO (22:38)
[2022-12-05] MEDS: ROSUVASTATIN 10 MG TABLET 40 MG PO (22:39)
[2022-12-05] MEDS: rOPINIRole HCL 0.25 MG TABLET PO (22:39)
[2022-12-05] MEDS: levoFLOXacin 500 MG/D5W 100 ML 500 MG/100 ML BAG 100 MG IVPB (22:39)
[2022-12-06] VITALS (23 sets, daily range): BP systolic 82–125; BP diastolic 49–71; PULSE 82–119; RESP 18–32; TEMP 36.6–36.8; O2SAT 88–100; BMI 17.4
[2022-12-06] MEDS: methylPREDNISolone SOD SUCC 125 MG VIAL 60 MG IV PUSH ×4 (00:07→19:26)
[2022-12-06] MEDS: IPRATROPIUM BR 0.02% INH SOLN 0.5 MG/2.5 ML VIAL INHALATION ×4 (02:21→20:49)
[2022-12-06] MEDS: ALBUTEROL SULFATE NEB 2.5 MG/3 ML INH INHALATION ×2 (02:21→07:25)
[2022-12-06 04:44] LABS: Basophils Percent Auto 0.2 % (0.2-1.2); Hematocrit 32.4 % (37.0-47.0); Hemoglobin 9.9 g/dL (12.0-15.0); Immature Granulocyte Absolute 0.02 K/mm3 (0.00-0.031); Immature Granulocyte Percent A 0.4 % (0-0.5); Immature Platelet Fraction Pct 10.4 % (0.9-11.2); Lymphocytes Absolute Auto 0.55 K/mm3 (0.9-3.2); Lymphocytes Percent Auto 10.6 % (18.3-44.2); Mean Corpuscular HGB Conc 30.6 g/dl (32-36); Mean Corpuscular Hemoglobin 30.6 pg (26-34); Mean Platelet Volume 11.4 fl (7.4-10.4); Monocytes Absolute Auto 0.1 K/mm3 (0.1-0.6); Monocytes Percent Auto 1.5 % (2.6-8.5); Neutrophils Absolute Auto 4.5 K/mm3 (1.3-6.7); Neutrophils Percent Auto 87.3 % (45.5-73.1); Platelet Count Result 134 k/mm3 (150-375); Red Blood Count 3.24 M/mm3 (4.2-5.4); Red Cell Distribution Width 16.1 % (11.5-14.5); White Blood Count 5.2 K/mm3 (4.5-10.0)
[2022-12-06 04:56] LABS: Magnesium 1.8 mg/dL (1.6-2.3)
[2022-12-06 05:34] LABS: Anion Gap 1 mmol/L (8-16); Blood Urea Nitrogen 18 mg/dL (7-17); Calcium 7.6 mg/dL (8.4-10.2); Carbon Dioxide 37 mmol/L (22-30); Chloride 99 mmol/L (98-107); Estimated CRCL calculation 54 ml/min; Estimated Glomerular Filt Rate > 60; Glucose 124 mg/dL (65-110); Potassium 3.6 mmol/L (3.4-5.0); Sodium 137 mmol/L (137-145)
[2022-12-06 05:49] LABS: Thyroid Stimulating Hormone Reflex 0.161 uIU/mL (0.465-4.68)
[2022-12-06] MEDS: CENTRAL LINE FLUSH 10 ML IV PUSH ×3 (06:18→20:48)
[2022-12-06] MEDS: FLUTICASONE/SALMETEROL 115-21 MCG INHALER 1 PUFF 2 PUFF INHALATION ×2 (07:25→20:51)
[2022-12-06] MEDS: FAMOTIDINE 20 MG TABLET PO (08:07)
[2022-12-06] MEDS: FUROSEMIDE 20 MG TABLET PO (08:08)
[2022-12-06] MEDS: ASPIRIN 81 MG ENTERIC TABLET PO (08:08)
[2022-12-06] MEDS: APIXABAN 5 MG TABLET PO (08:09)
[2022-12-06] MEDS: ESCITALOPRAM OXALATE 5 MG TABLET PO (08:09)
[2022-12-06] MEDS: DONEPEZIL HCL 10 MG TABLET PO (08:10)
[2022-12-06] MEDS: PREGABALIN (*CRX) 75 MG CAPSULE 150 MG PO ×2 (08:11→20:47)
--- NOTE | 2022-12-06 08:46 | WPDCNINT ---
Assessment and Plan Assessment and plan (1) Acute on chronic respiratory failure: Qualifiers: Respiratory failure complication: hypoxia and hypercapnia Qualified Code(s): J96.21 - Acute and chronic respiratory failure with hypoxia; J96.22 - Acute and chronic respiratory failure with hypercapnia; J96.22 - Acute and chronic respiratory failure with hypercapnia Code(s): J96.20 - Acute and chronic respiratory failure, unspecified whether with hypoxia or hypercapnia Status: Acute Assessment and Plan: Acute on chronic respiratory failure likely related to COPD exacerbation, pneumonia -patient also had productive cough -afebrile with normal white count -continue steroids, bronchodilators -continue Advair -patient is on levofloxacin and vancomycin (2) COPD exacerbation: Code(s): J44.1 - Chronic obstructive pulmonary disease with (acute) exacerbation Status: Acute Assessment and Plan: Continue bronchodilators, steroids and supplemental oxygen along with antibiotics (3) Pneumothorax: Qualifiers: Pneumothorax type: postprocedural Qualified Code(s): J95.811 - Postprocedural pneumothorax Code(s): J93.9 - Pneumothorax, unspecified Status: Acute Assessment and Plan: Small right-sided pneumothorax likely related to central venous access attempt -continue to monitor closely, she does not require chest tube at this time, if respiratory status worsens will obtain another chest x-ray -surgery has been consulted, (4) Shock: Code(s): R57.9 - Shock, unspecified Status: Acute Assessment and Plan: Patient with hypotension despite receiving 2.5 L of IV fluid -was started on Levophed which is currently off -will target mean arterial pressure > 65 mmHg at all times for adequate end organ perfusion -continue Levaquin and vancomycin (12/05) -lactic acid is within normal limits -UA was negative -12/05: blood cultures have been obtained and pending -order sputum culture (5) Anemia: Qualifiers: Anemia type: iron deficiency Iron deficiency anemia type: chronic blood loss Qualified Code(s): D50.0 - Iron deficiency anemia secondary to blood loss (chronic) Code(s): D64.9 - Anemia, unspecified Status: Acute Assessment and Plan: Chronic anemia, hemoglobin is around baseline -continue to monitor (6) Severe mitral regurgitation: Code(s): I34.0 - Nonrheumatic mitral (valve) insufficiency Status: Chronic Assessment and Plan: 09/27/2022 Echocardiogram: EF 50-55%, grade 1 diastolic dysfunction, RV systolic function is reduced, severe mitral valve regurg -will be cautious with IV fluids -patient received Lasix overnight with adequate urine output -blood pressure is currently borderline, will hold PO Lasix Plan DVT prophylaxis: Eliquis Stress ulcer prophylaxis: Famotidine Nutrition: Heart healthy diet Code Status: Full code Critical Care Time Spent: 47 minutes Due to a high probability of clinically significant, life threatening deterioration, the patient required my highest level of preparedness to intervene emergently and I personally spent this critical care time directly and personally managing the patient. This critical care time included obtaining a history; examining the patient; pulse oximetry; ordering and review of studies; arranging urgent treatment with development of a management plan; evaluation of patient's response to treatment; frequent reassessment; and discussions with other providers. It was exclusive of separately billable procedures and treating other patients and teaching time. Please see Assessment and Plan section and the rest of the note for further information on patient assessment and treatment This dictation may have been done utilizing a voice recognition system. Attempts have been made to correct errors. However, there may be uncorrected grammatical, spelling, and recognitions errors p
[2022-12-06] MEDS: ALBUMIN HUMAN 25% 25 GM/100 ML 100 ML IVPB ×3 (09:23→20:37)
--- NOTE | 2022-12-06 12:12 | PM.CNGS ---
Assessment and Plan Assessment and plan (1) Pneumothorax: Qualifiers: Pneumothorax type: postprocedural Qualified Code(s): J95.811 - Postprocedural pneumothorax Code(s): J93.9 - Pneumothorax, unspecified Status: Acute Assessment and Plan: largely unchanged, HD stable, cont to follow for now, serial imaging (2) Acute on chronic respiratory failure: Qualifiers: Respiratory failure complication: hypoxia and hypercapnia Qualified Code(s): J96.21 - Acute and chronic respiratory failure with hypoxia; J96.22 - Acute and chronic respiratory failure with hypercapnia; J96.22 - Acute and chronic respiratory failure with hypercapnia Code(s): J96.20 - Acute and chronic respiratory failure, unspecified whether with hypoxia or hypercapnia Status: Acute Assessment and Plan: mgmt per assembler and tester electronics, cont to watch closely (3) Shock: Code(s): R57.9 - Shock, unspecified Status: Acute Assessment and Plan: cont supportive mgmt in ICU setting History of Present Illness Consult details Consult date: 12/06/22 Reason for consult: other (right pneumothorax) Requesting physician: Michelle Gaytan NP Narrative: The patient is a 72-year-old female with multiple medical issues, including severe COPD and CAD, presenting to the hospital with COPD exacerbation, respiratory failure. The patient was found to be very hypotensive in the emergency department and subsequently needed central line for pressors. Unfortunately, attempts at right sided central line were unsuccessful despite multiple attempts. Patient subsequently got a right-sided PICC. The patient transferred to the ICU for further care. Chest x-rays that have been serially obtained show worsening moderate right-sided pneumothorax. Surgery has been consulted for management of pneumothorax. The patient reports that she is somewhat more comfortable at this time, although she does complain of some pleuritic right-sided chest pain. Review of Systems Constitutional: Constitutional: Reports as per HPI, Denies anorexia, Denies chills, Reports fatigue, Denies fever(s), Denies increased appetite, Reports lethargy, Reports malaise, Reports poor appetite, Denies stops breathing during sleep, Reports weakness, Denies weight gain and Denies weight loss Eyes: Eyes: Reports no additional eye complaints ENT: Reports system reviewed and no additional complaints, except as documented Cardiovascular: Cardiovascular: Reports chest pain, Reports dyspnea, Reports dyspnea on exertion and Reports orthopnea Respiratory: Respiratory: Reports as per HPI, Reports chest congestion, Reports dyspnea, Reports dyspnea on exertion and Reports wheezing Gastrointestinal: Gastrointestinal: Reports no additional gastrointestinal complaints Genitourinary: Genitourinary: Reports no additional female genitourinary complaints Musculoskeletal: Musculoskeletal: Reports no additional musculoskeletal complaints Integumentary/Breasts: Skin/Breast: Reports system reviewed and no additional complaints, except as docu Neurologic: Reports system reviewed and no additional complaints, except as documented Psychiatric: Psychiatric: Reports no additional psychiatric complaints Endocrine: Endocrine: Reports no additional endocrine complaints Hematologic/Lymphatic: Hematologic/Lymphatic: Reports no additional hematologic/lymphatic complaints Allergic/Immunologic: Allergic/Immunologic: Reports no additional allergic/immunologic complaints PMFSH Past Medical History Medical History Acute on chronic anemia Chronic anticoagulation COPD exacerbation Coronary artery disease Dementia GI bleed Hypertension Peripheral vascular disease Severe mitral regurgitation Surgical History Surgical History H/O cataract extraction H/O tubal ligation Hx of CABG 9 vessel
[2022-12-06] MEDS: LEVALBUTEROL NEB 1.25 MG/3 ML 0.63 MG INHALATION ×2 (13:24→20:49)
[2022-12-06] MEDS: hetaSTARCH 6%/NACL 500 ML 250 ML IV CONT (15:53)
[2022-12-06 16:04] LABS: Free T4 Free Thyroxine Reflex 1.08 ng/dL (0.78-2.19)
--- NOTE | 2022-12-06 17:11 | ECG_ITS ---
Measurements Intervals [place] Rate: 96 P: 25 MS: 203 QRS: 74 QRSD: 102 T: 50 QT: 464 QTc: 589 Interpretive Statements SINUS RHYTHM WITH 1ST DEGREE AV BLOCK LEFT VENTRICULAR HYPERTROPHY INFEROLATERAL ST ABNORMALITY, CONSIDER ISCHEMIA ABNORMAL ECG COMPARED TO ECG 12/05/2022 10:04:55 ST ABNORMALITIES MORE PROMINENT Electronically Signed On 12-07-2022 15:04:16 [employer]OP REPAIRER by Alec Browning M.D.
[2022-12-06 17:22] LABS: Total Triiodothyronine (T3) 0.78 NG/ML (0.97-1.69)
[2022-12-06 18:27] LABS: Troponin I < 0.012 ng/mL (0.000-0.034)
[2022-12-06] MEDS: FUROSEMIDE INJ 40 MG/4 ML VIAL 20 MG IV PUSH (19:27)
[2022-12-06] MEDS: MIRTAZAPINE 15 MG TABLET PO (20:47)
[2022-12-06] MEDS: rOPINIRole HCL 0.25 MG TABLET PO (20:47)
[2022-12-06] MEDS: ROSUVASTATIN 10 MG TABLET 40 MG PO (20:47)
[2022-12-07] VITALS (24 sets, daily range): BP systolic 96–125; BP diastolic 51–73; PULSE 70–94; RESP 14–29; TEMP 36.2–36.8; O2SAT 91–98
[2022-12-07] MEDS: methylPREDNISolone SOD SUCC 125 MG VIAL 60 MG IV PUSH (00:37)
[2022-12-07] MEDS: LEVALBUTEROL NEB 1.25 MG/3 ML 0.63 MG INHALATION ×4 (02:23→21:16)
[2022-12-07] MEDS: IPRATROPIUM BR 0.02% INH SOLN 0.5 MG/2.5 ML VIAL INHALATION ×4 (02:23→21:16)
[2022-12-07] MEDS: ALBUMIN HUMAN 25% 25 GM/100 ML 100 ML IVPB (02:48)
[2022-12-07 04:45] LABS: Hematocrit 21.8 % (37.0-47.0); Immature Platelet Fraction Pct 13.3 % (0.9-11.2); Mean Corpuscular HGB Conc 30.7 g/dl (32-36); Mean Corpuscular Hemoglobin 30.3 pg (26-34); Mean Corpuscular Volume 98.6 fl (80-100); Mean Platelet Volume 11.5 fl (7.4-10.4); Platelet Count Result 96 k/mm3 (150-375); Red Blood Count 2.21 M/mm3 (4.2-5.4); Red Cell Distribution Width 16.4 % (11.5-14.5); White Blood Count 7.2 K/mm3 (4.5-10.0)
[2022-12-07 04:52] LABS: Hemoglobin 6.7 g/dL (12.0-15.0); Lactic Acid Reflex 1.1 mmol/L (0.7-2.0)
[2022-12-07 04:55] LABS: Alanine Aminotransferase 47 U/L (6-35); Albumin Level 3.9 g/dL (3.5-5.1); Alkaline Phosphatase 66 U/L (38-126); Anion Gap 5 mmol/L (8-16); Aspartate Amino Transferase 86 U/L (14-36); Bilirubin,Total 0.3 mg/dL (0.2-1.3); Blood Urea Nitrogen 25 mg/dL (7-17); Calcium 7.7 mg/dL (8.4-10.2); Carbon Dioxide 39 mmol/L (22-30); Chloride 96 mmol/L (98-107); Estimated CRCL calculation 46 ml/min; Estimated Glomerular Filt Rate > 60; Glucose 134 mg/dL (65-110); INR 1.2; Magnesium 1.9 mg/dL (1.6-2.3); Phosphorus 2.4 mg/dL (2.5-4.5); Potassium 3.1 mmol/L (3.4-5.0); Sodium 140 mmol/L (137-145)
[2022-12-07 04:56] LABS: Partial Thromboplastin Time 32.4 SECONDS (22.3-36.8)
[2022-12-07 05:47] LABS: Band Neutrophils Percent 8 % (0-6); Monocytes Absolute Manual 0.07 K/mm3 (0.1-0.90); Monocytes Percent Manual 1 % (3-9); Neutrophils Absolute Manual 6.62 K/mm3 (1.7-7.2); Neutrophils Percent Manual 84 % (46-73); Platelet Estimate Decreased (Adequate); Total Cells Counted 100
[2022-12-07 05:48] LABS: Anisocytosis 2+ (NORMAL); Hypochromasia 2+ (NORMAL); Microcytosis 2+ (NORMAL); Ovalocytes 1+ (NORMAL); Schistocytes None Seen (NORMAL)
[2022-12-07 05:49] LABS: Macrocytosis 1+ (NORMAL); Stomatocytes 1+ (NORMAL)
[2022-12-07 06:23] LABS: Alveolar/Arterial O2 Gradient 159.5 mmHg; Carboxyhemoglobin 0.3 % THb (0-2.0); Fractional Inspired Oxygen 38 %; HCO3 ABG 37.3 mEq/l (22.0-26.0); Methemoglobin ABG 0.3 %THb (0-1.5); Oxygen Content ABG 10.5 %vol (16.0-22.0); Oxyhemoglobin 89.3 % THb (90.0-100.0); PO2 ABG 57.2 mmHg (80.0-100.0); PO2 FiO2 Ratio Arterial Blood 1.51 %; Reduced Hemoglobin 10.1 %THb (0-5.0); Total Hemoglobin 8.3 g/dL (12.0-18.0)
[2022-12-07 06:26] LABS: Modified Allen's Test Pass; Site Drawn RIGHT RADIAL; pH ABG 7.517 (7.350-7.450)
[2022-12-07 06:27] LABS: Hematocrit 22.6 % (37.0-47.0); Immature Granulocyte Absolute 0.04 K/mm3 (0.00-0.031); Immature Granulocyte Percent A 0.5 % (0-0.5); Immature Platelet Fraction Pct 13.2 % (0.9-11.2); Lymphocytes Percent Auto 6.3 % (18.3-44.2); Mean Corpuscular HGB Conc 30.5 g/dl (32-36); Mean Corpuscular Volume 98.3 fl (80-100); Mean Platelet Volume 11.7 fl (7.4-10.4); Monocytes Absolute Auto 0.2 K/mm3 (0.1-0.6); Monocytes Percent Auto 2.1 % (2.6-8.5); Neutrophils Absolute Auto 7.2 K/mm3 (1.3-6.7); Neutrophils Percent Auto 91.1 % (45.5-73.1); Platelet Count Result 103 k/mm3 (150-375); Red Cell Distribution Width 16.5 % (11.5-14.5); White Blood Count 7.9 K/mm3 (4.5-10.0)
[2022-12-07 06:27] LABS: Device NASAL CANNULA
[2022-12-07 06:51] LABS: Hemoglobin 6.9 g/dL (12.0-15.0)
[2022-12-07 06:55] LABS: Anisocytosis 1+ (NORMAL); Hypochromasia 1+ (NORMAL); Platelet Estimate Decreased (Adequate); Schistocytes None Seen (NORMAL)
[2022-12-07] MEDS: SODIUM CHLORIDE 0.9% IV 250 ML 30 ML IV CONT (07:30)
[2022-12-07] MEDS: FLUTICASONE/SALMETEROL 115-21 MCG INHALER 1 PUFF 2 PUFF INHALATION ×2 (08:37→21:16)
[2022-12-07] MEDS: ESCITALOPRAM OXALATE 5 MG TABLET PO (08:55)
[2022-12-07] MEDS: CENTRAL LINE FLUSH 10 ML IV PUSH ×3 (08:55→22:27)
[2022-12-07] MEDS: DONEPEZIL HCL 10 MG TABLET PO (08:56)
[2022-12-07] MEDS: methylPREDNISolone SOD SUCC 125 MG VIAL 40 MG IV PUSH ×2 (08:56→20:29)
[2022-12-07] MEDS: PANTOPRAZOLE SODIUM IV 40 MG VIAL IV PUSH ×2 (08:58→20:29)
[2022-12-07] MEDS: PREGABALIN (*CRX) 75 MG CAPSULE 150 MG PO ×2 (09:07→20:29)
--- NOTE | 2022-12-07 10:47 | PCFNICU ---
ICU Rounding Note: Pt current nutrition is Regular with Nutritional Ice Cream BID. Last recorded weight is 39.2 kg. Bowel Motility: +BM reported 2/ Labs Reviewed:BUN 25, K 3.1,Hct 22.6,Hgb 6.9 Meds Noted:Solu Medrol, Atrovent, Remeron, Protonix, NS Skin: WNL Additional Notes: Patient currently on Airvo. Regular diet is being tolerating. She had biscuits and gravy for breakfast. Daughter did bring in Boost diet supplements. Encouraged po intake. Agree with diet orders. Following daily in ICU rounds. RD will monitor every 5 days.
--- NOTE | 2022-12-07 10:48 | WPDINTPN ---
Progress Note: A&P Assessment and Plan (1) Acute on chronic respiratory failure: Qualifiers: Respiratory failure complication: hypoxia and hypercapnia Qualified Code(s): J96.21 - Acute and chronic respiratory failure with hypoxia; J96.22 - Acute and chronic respiratory failure with hypercapnia; J96.22 - Acute and chronic respiratory failure with hypercapnia Code(s): J96.20 - Acute and chronic respiratory failure, unspecified whether with hypoxia or hypercapnia Status: Acute Assessment and Plan: Acute on chronic respiratory failure likely related to COPD exacerbation, pneumonia, pulmonary edema secondary to mitral valve regurg -patient also had productive cough -afebrile with normal white count -continue bronchodilators -wean steroids -continue Advair -levofloxacin was discontinued on 12/06/2022 -patient now cefepime and vancomycin (2) COPD exacerbation: Code(s): J44.1 - Chronic obstructive pulmonary disease with (acute) exacerbation Status: Acute Assessment and Plan: Continue bronchodilators, steroids and supplemental oxygen along with antibiotics (3) Pneumothorax: Qualifiers: Pneumothorax type: postprocedural Qualified Code(s): J95.811 - Postprocedural pneumothorax Code(s): J93.9 - Pneumothorax, unspecified Status: Acute Assessment and Plan: Small right-sided pneumothorax likely related to central venous access attempt -continue to monitor closely, she does not require chest tube at this time, if respiratory status worsens will obtain another chest x-ray -appreciate surgery evaluation recommendations, no chest tube requirement at this time -chest x-ray this morning shows stable small right pneumothorax, patchy ground-glass opacity bilaterally likely pneumonia versus pulmonary edema. (4) Shock: Code(s): R57.9 - Shock, unspecified Status: Acute Assessment and Plan: Patient with hypotension despite receiving 2.5 L of IV fluid -off Levophed since 2 7:23 a.m. -blood pressures have been adequate -continue antibiotics as above -lactic acid is within normal limits -UA was negative -12/05: blood cultures preliminary results are negative x2 -12/06/2022: Sputum cultures: Specimen is customer success representative low respiratory tract (5) Anemia: Qualifiers: Anemia type: iron deficiency Iron deficiency anemia type: chronic blood loss Qualified Code(s): D50.0 - Iron deficiency anemia secondary to blood loss (chronic) Code(s): D64.9 - Anemia, unspecified Status: Acute Assessment and Plan: Chronic anemia, hemoglobin is around baseline -patient dropped hemoglobin this morning to 6.9 -transfusing 1 unit of packed RBCs, repeat hemoglobin post transfusion -stool for Hemoccult has been ordered -Eliquis and aspirin currently on hold due to anemia and possible GI bleed -GI has been consulted (6) Severe mitral regurgitation: Code(s): I34.0 - Nonrheumatic mitral (valve) insufficiency Status: Chronic Assessment and Plan: 09/27/2022 Echocardiogram: EF 50-55%, grade 1 diastolic dysfunction, RV systolic function is reduced, severe mitral valve regurg -will be cautious with IV fluids -patient received Lasix overnight with adequate urine output -blood pressure is currently borderline, will hold PO Lasix -patient sees Dr. Ferrer from the Cardiology group, -Cardiology has been consulted Plan DVT prophylaxis: SCDs, Eliquis currently on hold due to anemia Stress ulcer prophylaxis: Protonix IV q.12 hours Nutrition: Regular diet Discussed with patient updated with her condition and plan of care. I answered all questions Code Status: Full code Critical Care Time Spent: [address] Cline, hospitalist, patient will be downgraded to intermediate Unit status Due to a high probability of clinically significant, life threatening deterioration, the patient required my highest level of preparedness
--- NOTE | 2022-12-07 12:17 | PM.PNGS ---
Progress Note: A&P Assessment and Plan (1) Pneumothorax: Qualifiers: Pneumothorax type: postprocedural Qualified Code(s): J95.811 - Postprocedural pneumothorax Code(s): J93.9 - Pneumothorax, unspecified Status: Acute Assessment and Plan: exam and imaging improved, cont watchful observation at this time Subjective Subjective Date/Time Seen: 12/07/22 12:17 no acute issues, R sided CP seems better Review of Systems Review of Systems: All systems reviewed & are unremarkable except as noted in HPI and below Exam Const: General: cooperative, comfortable, no acute distress and ill appearing Chest: Chest palpation & inspection: normal inspection of the chest Resp: Auscultation: diminished lung sounds Cardio: Rate: regular rate Rhythm: regular rhythm GI: Inspection: normal to inspection Objective Data Vital Signs Vital Signs: Vital Signs - 24 hr 12/06/22 13:15 12/06/22 13:20 12/06/22 14:00 Temperature Pulse Rate 88 91 89 Respiratory Rate 18 18 Blood Pressure Pulse Oximetry Oxygen Delivery Oxygen Flow Rate Fraction of Inspired Oxygen 12/06/22 14:00 12/06/22 16:00 12/06/22 18:00 Temperature Pulse Rate 86 87 119 H Respiratory Rate 24 H Blood Pressure 87/54 L Pulse Oximetry 95 Oxygen Delivery Oxygen Flow Rate Fraction of Inspired Oxygen 12/06/22 16:00 12/06/22 18:00 12/06/22 20:00 Temperature 36.6 C Pulse Rate 110 H 103 H 101 H Respiratory Rate 25 H 23 H 28 H Blood Pressure 125/71 125/71 99/71 L Pulse Oximetry 100 100 88 L Oxygen Delivery Oxygen Flow Rate Fraction of Inspired Oxygen 12/06/22 20:00 12/06/22 20:00 12/06/22 20:55 Temperature Pulse Rate 101 H 101 H 84 Respiratory Rate 28 H 24 H Blood Pressure Pulse Oximetry 89 L Oxygen Delivery Nasal Cannula Oxygen Flow Rate 4 Fraction of Inspired Oxygen 12/06/22 21:00 12/06/22 21:12 12/07/22 00:00 Temperature Pulse Rate 83 83 78 Respiratory Rate 22 H 22 H Blood Pressure Pulse Oximetry 93 Oxygen Delivery High Flow Nasal Cannula Oxygen Flow Rate 45 Fraction of Inspired Oxygen 48 12/06/22 22:00 12/06/22 22:00 12/07/22 00:00 Temperature 36.7 C Pulse Rate 102 H 82 75 Respiratory Rate 26 H 24 H Blood Pressure 100/55 L 96/53 L Pulse Oximetry 98 93 Oxygen Delivery Oxygen Flow Rate Fraction of Inspired Oxygen 12/07/22 00:00 12/07/22 02:25 12/07/22 02:27 Temperature Pulse Rate 76 71 71 Respiratory Rate 26 H 19 18 Blood Pressure Pulse Oximetry 93 98 Oxygen Delivery High Flow Therapy with Na High Flow Nasal Cannula Oxygen Flow Rate 45 45 Fraction of Inspired Oxygen 38 38 12/07/22 02:37 12/07/22 02:00 12/07/22 02:00 Temperature Pulse Rate 74 82 82 Respiratory Rate 20 20 Blood Pressure 96/69 L Pulse Oximetry 98 Oxygen Delivery Oxygen Flow Rate Fraction of Inspired Oxygen 12/07/22 04:00 12/07/22 04:00 12/07/22 04:00 Temperature 36.6 C Pulse Rate 86 86 86 Respiratory Rate 22 H 22 H Blood Pressure 103/61 Pulse Oximetry 96 96 Oxygen Delivery High Flow Therapy with Na Oxygen Flow Rate 45 Fraction of Inspired Oxygen 38 12/07/22 06:00 12/07/22 06:00 12/07/22 07:28 Temperature 36.2 C L Pulse Rate 87 87 78 Respiratory Rate 20 24 H Blood Pressure 109/60 124/60 Pulse Oximetry 96 91 Oxygen Delivery Oxygen Flow Rate Fraction of Inspired Oxygen 12/07/22 08:00 12/07/22 08:29 12/07/22 08:34 Temperature 36.6 C Pulse Rate 77 75 82 Respiratory Rate 27 H 20 20 Blood Pressure 107/71 Pulse Oximetry 94 95 Oxygen Delivery High Flow Nasal Cannula Oxygen Flow Rate 45 Fraction of Inspired Oxygen 38 12/07/22 08:53 12/07/22 10:00 12/07/22 08:00 Temperature Pulse Rate 76 80 82 Respiratory Rate 20 21 H Blood Pressure 102/51 L Pulse Oximetry 93 Oxygen Delivery Oxygen Flow Rate Fraction of Inspired Oxygen
--- NOTE | 2022-12-07 13:19 | WPDGICN ---
Assessment and Plan Assessment and plan (1) Acute on chronic anemia: Code(s): D64.9 - Anemia, unspecified Status: Acute Assessment and Plan: Patient with decline in hemoglobin noted today. There is a history of hemoptysis. Patient has had no obvious active GI bleeding however in August had bleeding attributed to gastric ulcerations. At that time also found to have Telma esophagitis. Plan to maintain patient on proton pump inhibitors. Avoid anticoagulation. Avoid nonsteroidal anti-inflammatory agents. Any follow-up EGD may be prudent when her respiratory status allows. Currently no signs of active bleeding. Would defer invasive testing till she is more stable. (2) Acute on chronic respiratory failure: Qualifiers: Respiratory failure complication: hypoxia and hypercapnia Qualified Code(s): J96.21 - Acute and chronic respiratory failure with hypoxia; J96.22 - Acute and chronic respiratory failure with hypercapnia; J96.22 - Acute and chronic respiratory failure with hypercapnia Code(s): J96.20 - Acute and chronic respiratory failure, unspecified whether with hypoxia or hypercapnia Status: Acute (3) Pneumothorax: Qualifiers: Pneumothorax type: postprocedural Qualified Code(s): J95.811 - Postprocedural pneumothorax Code(s): J93.9 - Pneumothorax, unspecified Status: Acute (4) Gastric ulcer: Code(s): K25.9 - Gastric ulcer, unspecified as acute or chronic, without hemorrhage or perforation Status: Acute Assessment and Plan: Gastric ulceration identified 09/30/2022. Plan to keep patient on PPI therapy and avoid NSAIDs. This is risk factor for current GI blood loss. Continue to monitor closely for signs of GI blood loss. Stool Hemoccult when possible. (5) Telma esophagitis: Code(s): B37.81 - Candidal esophagitis Status: Acute Assessment and Plan: Telma esophagitis identified 09/30/2022. No active symptomatology. Patient has been treated. (6) Severe mitral regurgitation: Code(s): I34.0 - Nonrheumatic mitral (valve) insufficiency Status: Chronic GI Consult Note Consult date/time: 12/07/22 13:19 Reason for consult: Anemia HPI: Elena Sanon is a 72 year old female I am asked to see because of a decline in hemoglobin. Patient has a history of rather severe COPD, shortness of breath,, peripheral vascular disease. Patient presented to the emergency room with increasing shortness of breath. A central line was attempted to be placed patient developed a pneumothorax. For this reason she was admitted to the intensive care unit for observation. She has felt to have a pneumonia present. Patient previously a been on chronic anticoagulation, patient did well however noted to have a decline in hemoglobin today. No obvious signs of GI blood loss have been identified. Patient did cough up about a half a glass full of blood however. This occurred last evening. She has had no change in her bowel habits no obvious blood in her stools have been noted. Patient gives a history of GI bleeding in August. At that time hospitalized in [place]. Follow-up EGD and colonoscopy performed at our institution early September 2022 revealed significant gastric ulcerations attributed to aspirin use. There was evidence of previous duodenal clipping of previous GI blood side. Patient denies any current abdominal pain. She has had no hematemesis. Review of Systems Review of Systems: Review of systems noncontributory. PMFSH Past Medical History Medical History Acute on chronic anemia Chronic anticoagulation COPD exacerbation Coronary artery disease Dementia GI bleed Hypertension Peripheral vascular disease Severe mitral regurgitation Surgical History Surgical History H/O cataract extraction H/O tubal
[2022-12-07 14:47] LABS: Vancomycin Trough 7.6 ug/mL (10.0-20.0)
[2022-12-07 15:13] LABS: Hematocrit 27.8 % (37.0-47.0); Mean Corpuscular HGB Conc 32.4 g/dl (32-36); Mean Corpuscular Hemoglobin 30.5 pg (26-34); Mean Corpuscular Volume 94.2 fl (80-100); Mean Platelet Volume 12.1 fl (7.4-10.4); Platelet Count Result 100 k/mm3 (150-375); Red Blood Count 2.95 M/mm3 (4.2-5.4); Red Cell Distribution Width 16.7 % (11.5-14.5); White Blood Count 12.3 K/mm3 (4.5-10.0)
--- NOTE | 2022-12-07 15:43 | PM.CNCAR ---
Assessment and Plan Assessment and plan (1) Acute on chronic anemia: Code(s): D64.9 - Anemia, unspecified Status: Acute (2) Shock: Code(s): R57.9 - Shock, unspecified Status: Acute (3) Pneumothorax: Qualifiers: Pneumothorax type: postprocedural Qualified Code(s): J95.811 - Postprocedural pneumothorax Code(s): J93.9 - Pneumothorax, unspecified Status: Acute (4) Acute on chronic respiratory failure: Qualifiers: Respiratory failure complication: hypoxia and hypercapnia Qualified Code(s): J96.21 - Acute and chronic respiratory failure with hypoxia; J96.22 - Acute and chronic respiratory failure with hypercapnia; J96.22 - Acute and chronic respiratory failure with hypercapnia Code(s): J96.20 - Acute and chronic respiratory failure, unspecified whether with hypoxia or hypercapnia Status: Acute (5) Gastric ulcer: Code(s): K25.9 - Gastric ulcer, unspecified as acute or chronic, without hemorrhage or perforation Status: Acute (6) Severe mitral regurgitation: Code(s): I34.0 - Nonrheumatic mitral (valve) insufficiency Status: Chronic (7) Peripheral vascular disease: Code(s): I73.9 - Peripheral vascular disease, unspecified Status: Chronic (8) Coronary artery disease: Qualifiers: Coronary Disease-Associated Artery/Lesion type: [place] artery [place] vs. transplanted heart: [place] heart Associated angina: without angina Qualified Code(s): I25.10 - Atherosclerotic heart disease of [place] coronary artery without angina pectoris Code(s): I25.10 - Atherosclerotic heart disease of [place] coronary artery without angina pectoris Status: Chronic Plan At this time, patient does not appear to be in overt decompensated heart failure and does not appear to be grossly volume overloaded. Agree with holding further diuresis for now. Watch volume status and monitor I/Os, with PRN intermittent diuresis as needed. Okay to hold Eliquis and ASA given acute on chronic anemia. Will continue to follow along. History of Present Illness History of Present Illness Consult date/time: 12/07/22 15:43 Requesting physician: Ana Garces MD Consult reason: Other (Valvular disease) Reason For Visit: Acute on chronic Respiratory Failure/COPD [place] Narrative: This is a 72-year-old female with a history of mitral regurgitation, chronic anemia, COPD, CAD, history of GI bleed, PVD, who presented to the ER with shortness of breath over past few days. Had productive cough. No chest pain, palpitations, lower extremity edema. Patient was noted to be hypotensive in the ER, and a central line was attempted, which resulted in small right pneumothorax. Patient also given IV Lasix overnight due to concerns for volume overload. Required Levophed yesterday, but is currently off of Levophed. Patient states she has been coughing up blood. Echocardiogram last admission in August showed LVEF 50-55%, reduced RVSF, severe MR (in the setting of acute on chronic anemia). She follows with us in clinic. Review of Systems Review of Systems: 12-point ROS obtained. Negative, unless stated in HPI. [facility] Past Medical History Medical History Acute on chronic anemia Chronic anticoagulation COPD exacerbation Coronary artery disease Dementia GI bleed Hypertension Peripheral vascular disease Severe mitral regurgitation Surgical History Surgical History H/O cataract extraction H/O tubal ligation Hx of CABG 9 vessel S/P femoral-popliteal bypass surgery yemi S/P tonsillectomy Family History Family History Father Acute myocardial infarction Cerebrovascular accident Congestive heart failure Hypertension Mother Acute myocardial infarction History of blood clots Congestive h
[2022-12-07] MEDS: ROSUVASTATIN 10 MG TABLET 40 MG PO (20:28)
[2022-12-07] MEDS: rOPINIRole HCL 0.25 MG TABLET PO (20:29)
[2022-12-07] MEDS: MIRTAZAPINE 15 MG TABLET PO (20:29)
[2022-12-08] VITALS (22 sets, daily range): BP systolic 116–148; BP diastolic 61–74; PULSE 66–99; RESP 16–27; TEMP 36.4–36.8; O2SAT 94–97
[2022-12-08] MEDS: IPRATROPIUM BR 0.02% INH SOLN 0.5 MG/2.5 ML VIAL INHALATION ×4 (03:03→20:38)
[2022-12-08] MEDS: LEVALBUTEROL NEB 1.25 MG/3 ML 0.63 MG INHALATION ×4 (03:03→20:38)
[2022-12-08] MEDS: CENTRAL LINE FLUSH 10 ML IV PUSH ×3 (05:32→20:19)
[2022-12-08] MEDS: FLUTICASONE/SALMETEROL 115-21 MCG INHALER 1 PUFF 2 PUFF INHALATION (08:05)
[2022-12-08] MEDS: PREGABALIN (*CRX) 75 MG CAPSULE 150 MG PO ×2 (08:37→20:20)
[2022-12-08] MEDS: ESCITALOPRAM OXALATE 5 MG TABLET PO (08:37)
[2022-12-08] MEDS: DONEPEZIL HCL 10 MG TABLET PO (08:37)
[2022-12-08] MEDS: PANTOPRAZOLE SODIUM IV 40 MG VIAL IV PUSH ×2 (08:37→20:19)
[2022-12-08] MEDS: methylPREDNISolone SOD SUCC 125 MG VIAL 40 MG IV PUSH (08:37)
[2022-12-08 08:56] LABS: Hematocrit 30.3 % (37.0-47.0); Hemoglobin 9.6 g/dL (12.0-15.0); Mean Corpuscular HGB Conc 31.7 g/dl (32-36); Mean Corpuscular Hemoglobin 30.7 pg (26-34); Mean Corpuscular Volume 96.8 fl (80-100); Mean Platelet Volume 12.7 fl (7.4-10.4); Platelet Count Result 117 k/mm3 (150-375); Red Blood Count 3.13 M/mm3 (4.2-5.4); White Blood Count 11.1 K/mm3 (4.5-10.0)
[2022-12-08 09:20] LABS: Alanine Aminotransferase 60 U/L (6-35); Albumin Level 3.7 g/dL (3.5-5.1); Alkaline Phosphatase 71 U/L (38-126); Anion Gap 2 mmol/L (8-16); Aspartate Amino Transferase 78 U/L (14-36); Bilirubin,Total 0.5 mg/dL (0.2-1.3); Blood Urea Nitrogen 27 mg/dL (7-17); Carbon Dioxide 35 mmol/L (22-30); Chloride 100 mmol/L (98-107); Estimated CRCL calculation 46 ml/min; Estimated Glomerular Filt Rate > 60; Glucose 254 mg/dL (65-110); Magnesium 1.9 mg/dL (1.6-2.3); Potassium 3.2 mmol/L (3.4-5.0); Sodium 137 mmol/L (137-145)
[2022-12-08 09:54] LABS: Vancomycin Trough 9.8 ug/mL (10.0-20.0)
[2022-12-08] MEDS: POTASSIUM CHLORIDE 20 MEQ TABLET 40 MEQ PO (11:13)
--- NOTE | 2022-12-08 12:19 | PM.IMPN ---
Progress Note: A&P Assessment and Plan (1) Acute on chronic respiratory failure: Qualifiers: Respiratory failure complication: hypoxia and hypercapnia Qualified Code(s): J96.21 - Acute and chronic respiratory failure with hypoxia; J96.22 - Acute and chronic respiratory failure with hypercapnia; J96.22 - Acute and chronic respiratory failure with hypercapnia Code(s): J96.20 - Acute and chronic respiratory failure, unspecified whether with hypoxia or hypercapnia Status: Acute Assessment and Plan: The patient has a history of COPD. She is chronically on oxygen at home. Patient has hypercapnia and hypoxia. The patient is on high-flow oxygen at this time. 12/08/2022 interval history: 72 y/o femaly with history of smoking and COPD, presented with shortness of breath, and anemia there was c/o hemoptysis, and recent EGD showed gastric ulcerations, Patient is being treated with PPI, and hgb is stable, Patient shortness of breath requiring high flow oxygen, seen by business support coordinator does not suspect CHF, patient has long history of smoking most likely exacerbation of COPD, will consult cutting machine operator helper and further recommendations to follow. patient daughter is present in the room. will have PT/OT evaluate the patient. patient appears undernourished, will consult health manager. (2) Pneumothorax: Qualifiers: Pneumothorax type: postprocedural Qualified Code(s): J95.811 - Postprocedural pneumothorax Code(s): J93.9 - Pneumothorax, unspecified Status: Acute Assessment and Plan: Possible postprocedure? it is unclear if a central line was attempted in the IJ. Surgery has been consulted (3) Dementia: Code(s): F03.90 - Unspecified dementia, unspecified severity, without behavioral disturbance, psychotic disturbance, mood disturbance, and anxiety Status: Acute Assessment and Plan: -continue with Aricept (4) COPD exacerbation: Code(s): J44.1 - Chronic obstructive pulmonary disease with (acute) exacerbation Status: Acute Assessment and Plan: -continue with Solu-Medrol. Continue with DuoNebs. -ABGs are improving. -however the patient did not like she was getting fluid overload so I gave her some Lasix. -the patient was started on vancomycin and Levaquin as she appears she may be septic however her chest x-ray did not show any pneumonia. She was given a dose of azithromycin and Rocephin in the emergency room. -blood and sputum cultures are pending (5) Chronic anticoagulation: Code(s): Z79.01 - [facility] (current) use of anticoagulants Status: Acute Assessment and Plan: -continue with Eliquis. The patient has had bilateral fem-pop and she states that is why she is on the Eliquis. (6) Hypertension: Qualifiers: Hypertension type: primary hypertension Qualified Code(s): I10 - Essential (primary) hypertension Code(s): I10 - Essential (primary) hypertension Status: Chronic Assessment and Plan: -I am holding her metoprolol at this time is she is on Levophed and hypotensive (7) Anemia: Qualifiers: Anemia type: iron deficiency Iron deficiency anemia type: chronic blood loss Qualified Code(s): D50.0 - Iron deficiency anemia secondary to blood loss (chronic) Code(s): D64.9 - Anemia, unspecified Status: Acute Assessment and Plan: H&H is stable. However her MCV is elevated 101.6. (8) Coronary artery disease: Qualifiers: Coronary Disease-Associated Artery/Lesion type: [place] artery [place] vs. transplanted heart: [place] heart Associated angina: without angina Qualified Code(s): I25.10 - Atherosclerotic heart disease of [place] coronary artery without angina pectoris Code(s): I25.10 - Atherosclerotic heart disease of [place] coronary artery without angina pectoris Status: Chronic Assessment and Plan: -patient is on Eliquis the patient tells me that she has had 9 byp
--- NOTE | 2022-12-08 12:30 | PM.CNPUL ---
Assessment and Plan Assessment and plan (1) COPD exacerbation: Code(s): J44.1 - Chronic obstructive pulmonary disease with (acute) exacerbation Status: Acute Assessment and Plan: 72-year-old woman with a history of CABG, hypertension, peripheral vascular disease status post bypass, mitral regurgitation, COPD With moderate to severe panlobular emphysema throughout all lung gra[place] on CT scan from 09/26/2022, I have no PFTs, on 3 L nasal cannula. 12/08 patient has no wheezing currently on levalbuterol 0.63 mg nebulized q.6 hours, ipratropium 0.5 mg nebulized Q 6 hours. she is also on cell meter all which I will discontinue. I will add nebulized budesonide at this time. Patient is on Solu-Medrol 40 IV q.12 hours and I will discontinue this and add Prednisone 40 mg p.o. q.day on 12/08/2022. COVID influenza RT PCR studies negative. Blood cultures negate. Sputum with normal daniel and yeast. I will patient has infiltrates on her chest x-ray and she has been treated with ceftriaxone and azithromycin and Levaquin on 12/05/2022. Patient was changed to vancomycin on 12/05 and cefepime on 12/06. Will continue vancomycin and cefepime at this time. (2) Acute on chronic respiratory failure: Qualifiers: Respiratory failure complication: hypoxia and hypercapnia Qualified Code(s): J96.21 - Acute and chronic respiratory failure with hypoxia; J96.22 - Acute and chronic respiratory failure with hypercapnia; J96.22 - Acute and chronic respiratory failure with hypercapnia Code(s): J96.20 - Acute and chronic respiratory failure, unspecified whether with hypoxia or hypercapnia Status: Acute Assessment and Plan: patient with moderate to severe panlobular emphysema on her CT scan, tobacco use and chronic hypercarbic and hypoxemic respiratory failure with a blood gas on admission 7.38//73 on 3 L nasal cannula. The patient has chronic hypercarbic respiratory failure from COPD and would benefit from noninvasive ventilation to prevent deteriorations and subsequent hospitalizations. At this time she cannot be placed on positive pressure ventilation because she has a pneumothorax. 12/08 Currently the patient is back on her home setting of 3 L nasal cannula saturations 95%. Goal saturation 90-94%. Prior to discharge will repeat a blood gas to assess her hypercarbia. (3) Pneumothorax: Qualifiers: Pneumothorax type: postprocedural Qualified Code(s): J95.811 - Postprocedural pneumothorax Code(s): J93.9 - Pneumothorax, unspecified Status: Acute Assessment and Plan: Patient has a right apical pneumothorax that has improved on chest x-ray on 12/08/2022. The patient should not be placed on positive-pressure ventilation unless all attempts at high-flow noninvasive nasal cannula ventilation have failed. If the patient is trending toward the need for BiPAP or mechanical ventilation she should be transferred to a higher level care facility that has a thoracic surgery team that can place a chest tube as her pneumothorax would likely worsen on positive pressure ventilation. Will check a chest x-ray in the morning. History of Present Illness History of Present Illness Consult date: 12/08/22 Chief complaint: Acute on chronic Respiratory Failure/COPD [place] Narrative: 12/08/2022: This is a new pulmonary consult for COPD with chronic hypercarbic and hypoxemic respiratory failure. 72-year-old woman with a history of CABG, hypertension, peripheral vascular disease status post bypass, mitral regurgitation, COPD With moderate to severe panlobular emphysema throughout all lung gra[place] on CT scan from 09/26/2022, I have no PFTs, on 3 L nasal cannula presented to the emergency department on 12/05/2022 with shortness of breath, green cough, wheezes. Her saturations on 3 L were 88% and her blood pressure was low. Patient was given IV fluid and a subclavian line was attempted. This resulted
--- NOTE | 2022-12-08 13:28 | PM.PNGS ---
Progress Note: A&P Assessment and Plan (1) Pneumothorax: Qualifiers: Pneumothorax type: postprocedural Qualified Code(s): J95.811 - Postprocedural pneumothorax Code(s): J93.9 - Pneumothorax, unspecified Status: Acute Assessment and Plan: stable, no intervention required at this time, will sign off, call c ?s, issues (2) Acute on chronic respiratory failure: Qualifiers: Respiratory failure complication: hypoxia and hypercapnia Qualified Code(s): J96.21 - Acute and chronic respiratory failure with hypoxia; J96.22 - Acute and chronic respiratory failure with hypercapnia; J96.22 - Acute and chronic respiratory failure with hypercapnia Code(s): J96.20 - Acute and chronic respiratory failure, unspecified whether with hypoxia or hypercapnia Status: Acute Assessment and Plan: likely COPD exacerbation, mgmt per primary team, pulm consult placed today Subjective Subjective Date/Time Seen: 12/08/22 13:28 no acute issues, pleuritic CP improved Review of Systems Review of Systems: All systems reviewed & are unremarkable except as noted in HPI and below Exam Const: General: cooperative, comfortable, acute distress mild and ill appearing Resp: Auscultation: diminished lung sounds Cardio: Rate: regular rate Rhythm: regular rhythm GI: Inspection: normal to inspection Objective Data Vital Signs Vital Signs: Vital Signs - 24 hr 12/07/22 13:51 12/07/22 14:03 12/07/22 14:00 Temperature Pulse Rate 92 90 75 Respiratory Rate 23 H 23 H Blood Pressure Pulse Oximetry Oxygen Delivery Oxygen Flow Rate Fraction of Inspired Oxygen 12/07/22 14:00 12/07/22 16:00 12/07/22 16:00 Temperature Pulse Rate 70 79 76 Respiratory Rate 25 H 22 H Blood Pressure 123/60 125/73 Pulse Oximetry 98 93 Oxygen Delivery Oxygen Flow Rate Fraction of Inspired Oxygen 12/07/22 16:00 12/07/22 18:00 12/07/22 18:00 Temperature Pulse Rate 88 81 Respiratory Rate 23 H Blood Pressure 118/57 L Pulse Oximetry 93 95 Oxygen Delivery High Flow Therapy with Na Oxygen Flow Rate 45 Fraction of Inspired Oxygen 38 12/07/22 20:00 12/07/22 20:00 12/07/22 20:00 Temperature 36.8 C Pulse Rate 81 81 81 Respiratory Rate 14 22 H Blood Pressure 115/59 L Pulse Oximetry 94 93 Oxygen Delivery High Flow Therapy with Na Oxygen Flow Rate 45 Fraction of Inspired Oxygen 38 12/07/22 21:17 12/07/22 21:17 12/07/22 21:18 Temperature Pulse Rate 79 79 94 Respiratory Rate 20 29 H Blood Pressure 117/53 L Pulse Oximetry 96 Oxygen Delivery Oxygen Flow Rate Fraction of Inspired Oxygen 12/07/22 21:23 12/07/22 21:28 12/08/22 03:03 Temperature Pulse Rate 73 73 72 Respiratory Rate 26 H 21 H Blood Pressure Pulse Oximetry 96 Oxygen Delivery High Flow Therapy with Na Oxygen Flow Rate 45 Fraction of Inspired Oxygen 38 12/08/22 03:15 12/08/22 03:15 12/08/22 00:00 Temperature Pulse Rate 71 66 72 Respiratory Rate 19 Blood Pressure Pulse Oximetry 95 Oxygen Delivery High Flow Therapy with Na Oxygen Flow Rate 40 Fraction of Inspired Oxygen 40 12/08/22 02:00 12/08/22 03:55 12/08/22 00:00 Temperature 36.7 C Pulse Rate 71 76 72 Respiratory Rate 20 Blood Pressure 116/61 Pulse Oximetry 95 Oxygen Delivery Oxygen Flow Rate Fraction of Inspired Oxygen 12/08/22 02:00 12/08/22 03:55 12/08/22 00:00 Temperature 36.6 C Pulse Rate 71 76 Respiratory Rate 22 H 25 H Blood Pressure 128/69 134/70 Pulse Oximetry 96 95 95 Oxygen Delivery High Flow Therapy with Na Oxygen Flow Rate 40 Fraction of Inspired Oxygen 40 12/08/22 04:00 12/08/22 05:44 12/08/22 05:44 Temperature Pulse Rate 78 77 Respiratory Rate 23 H Blood Pressure 131/65 Pulse Oximetry 94 96 Oxygen Delivery High Flow Therapy with Na Oxygen Flow Rate 40 Fraction of Inspired Oxyge
--- NOTE | 2022-12-08 14:16 | WPDGIPROGNO ---
Progress Note: A&P Assessment and Plan (1) Pneumothorax: Qualifiers: Pneumothorax type: postprocedural Qualified Code(s): J95.811 - Postprocedural pneumothorax Code(s): J93.9 - Pneumothorax, unspecified Status: Acute Assessment and Plan: Patient being observed because of pneumothorax. Because of this I would defer endoscopy at present unless active bleeding and identified. (2) Shock: Code(s): R57.9 - Shock, unspecified Status: Acute Assessment and Plan: Patient shock appears improved no longer a pressor agents (3) Gastric ulcer: Code(s): K25.9 - Gastric ulcer, unspecified as acute or chronic, without hemorrhage or perforation Status: Acute Assessment and Plan: history of gastric ulcer several months ago. Elective follow-up may be beneficial. Continue to treat with PPI therapy. Avoid NSAIDs. Will continue to monitor hemoglobin and transfuse as necessary. Stool Hemoccult in progress to look for any signs of GI blood loss. (4) Hemoptysis: Code(s): R04.2 - Hemoptysis Status: Acute Assessment and Plan: Patient reports coughing up blood. This appears to correlate with decline in hemoglobin. Subjective Date/time seen: 12/08/22 14:16 Interval history: Patient alert breathing some point more easily today. States she feels better. Continues to be on supplemental oxygen. She states she has had additional coughing up blood. No emesis this reported. She has had no recent bowel movements. No signs of active GI bleeding. Hemoglobin improved after transfusion. Review of Systems Review of Systems: Review of systems noncontributory. Exam Narrative: Physical exam reveals patient be alert. Vital signs stable. HEENT exam unremarkable. Patient remains on supplemental oxygen. Lungs reveal scattered rhonchi. Abdomen bowel sounds present soft nontender. Objective Data Vital Signs Vital Signs: Vital Signs - 24 hr 12/07/22 16:00 12/07/22 16:00 12/07/22 16:00 Temperature Pulse Rate 79 76 Respiratory Rate 22 H Blood Pressure 125/73 Pulse Oximetry 93 93 Oxygen Delivery High Flow Therapy with Na Oxygen Flow Rate 45 Fraction of Inspired Oxygen 38 12/07/22 18:00 12/07/22 18:00 12/07/22 20:00 Temperature Pulse Rate 88 81 81 Respiratory Rate 23 H Blood Pressure 118/57 L Pulse Oximetry 95 Oxygen Delivery Oxygen Flow Rate Fraction of Inspired Oxygen 02/08/23 20:00 12/07/22 20:00 12/07/22 21:17 Temperature 98.2 F Pulse Rate 81 81 79 Respiratory Rate 14 22 H Blood Pressure 115/59 L Pulse Oximetry 94 93 Oxygen Delivery High Flow Therapy with Na Oxygen Flow Rate 45 Fraction of Inspired Oxygen 38 12/07/22 21:17 12/07/22 21:18 12/07/22 21:23 Temperature Pulse Rate 79 94 73 Respiratory Rate 20 29 H Blood Pressure 117/53 L Pulse Oximetry 96 96 Oxygen Delivery High Flow Therapy with Na Oxygen Flow Rate 45 Fraction of Inspired Oxygen 38 12/07/22 21:28 12/08/22 03:03 12/08/22 03:15 Temperature Pulse Rate 73 72 71 Respiratory Rate 26 H 21 H 19 Blood Pressure Pulse Oximetry Oxygen Delivery Oxygen Flow Rate Fraction of Inspired Oxygen 12/08/22 03:15 12/08/22 00:00 12/08/22 02:00 Temperature Pulse Rate 66 72 71 Respiratory Rate Blood Pressure Pulse Oximetry 95 Oxygen Delivery High Flow Therapy with Na Oxygen Flow Rate 40 Fraction of Inspired Oxygen 40 12/08/22 03:55 12/08/22 00:00 12/08/22 02:00 Temperature 98.1 F Pulse Rate 76 72 71 Respiratory Rate 20 22 H Blood Pressure 116/61 128/69 Pulse Oximetry 95 96 Oxygen Delivery Oxygen Flow Rate Fraction of Inspired Oxygen 12/08/22 03:55 12/08/22 00:00 12/08/22 04:00 Temperature 97.9 F Pulse Rate 76 Respiratory Rate 25 H Blood Pressure 134/70 Pulse Oximetry 95 95 94 Oxygen Delivery High Flow Therapy with Na High
[2022-12-08] MEDS: MIRTAZAPINE 15 MG TABLET PO (20:18)
[2022-12-08] MEDS: ROSUVASTATIN 10 MG TABLET 40 MG PO (20:18)
[2022-12-08] MEDS: rOPINIRole HCL 0.25 MG TABLET PO (20:18)
[2022-12-08] MEDS: BUDESONIDE RESPULE NEB 0.5 MG/2 ML AMP INHALATION (20:38)
[2022-12-09] VITALS (19 sets, daily range): BP systolic 112–157; BP diastolic 66–92; PULSE 69–119; RESP 17–25; TEMP 36.5–36.9; O2SAT 93–98
[2022-12-09] MEDS: LEVALBUTEROL NEB 1.25 MG/3 ML 0.63 MG INHALATION ×4 (02:43→20:55)
[2022-12-09] MEDS: IPRATROPIUM BR 0.02% INH SOLN 0.5 MG/2.5 ML VIAL INHALATION ×4 (02:43→20:55)
[2022-12-09 05:17] LABS: Hematocrit 29.7 % (37.0-47.0); Hemoglobin 9.3 g/dL (12.0-15.0); Mean Corpuscular HGB Conc 31.3 g/dl (32-36); Mean Corpuscular Hemoglobin 29.6 pg (26-34); Mean Corpuscular Volume 94.6 fl (80-100); Mean Platelet Volume 12.3 fl (7.4-10.4); Platelet Count Result 121 k/mm3 (150-375); Red Blood Count 3.14 M/mm3 (4.2-5.4); Red Cell Distribution Width 16.4 % (11.5-14.5); White Blood Count 11.1 K/mm3 (4.5-10.0)
[2022-12-09 05:27] LABS: Magnesium 1.9 mg/dL (1.6-2.3)
[2022-12-09 05:47] LABS: Anion Gap 3 mmol/L (8-16); Blood Urea Nitrogen 21 mg/dL (7-17); Calcium 7.8 mg/dL (8.4-10.2); Carbon Dioxide 31 mmol/L (22-30); Chloride 106 mmol/L (98-107); Estimated CRCL calculation 54 ml/min; Estimated Glomerular Filt Rate > 60; Glucose 95 mg/dL (65-110); Sodium 140 mmol/L (137-145)
[2022-12-09] MEDS: CENTRAL LINE FLUSH 10 ML IV PUSH ×2 (07:12→22:39)
--- NOTE | 2022-12-09 07:58 | WPDGIPROGNO ---
Progress Note: A&P Assessment and Plan (1) Hemoptysis: Code(s): R04.2 - Hemoptysis Status: Acute Assessment and Plan: Patient no longer coughing up bright red blood. Has some coffee-ground material she is coughing up this time. I suspect this may have contributed to decline in hemoglobin. Likely related underlying respiratory issues. Perhaps related to recent pneumothorax. (2) Anemia: Qualifiers: Anemia type: iron deficiency Iron deficiency anemia type: chronic blood loss Qualified Code(s): D50.0 - Iron deficiency anemia secondary to blood loss (chronic) Code(s): D64.9 - Anemia, unspecified Status: Acute Assessment and Plan: Anemia peers chronic. Decline in hemoglobin has resolved. Hemoglobin 9.3 this morning appears stable. No evidence for GI blood loss. (3) Pneumothorax: Qualifiers: Pneumothorax type: postprocedural Qualified Code(s): J95.811 - Postprocedural pneumothorax Code(s): J93.9 - Pneumothorax, unspecified Status: Acute (4) Acute on chronic respiratory failure: Qualifiers: Respiratory failure complication: hypoxia and hypercapnia Qualified Code(s): J96.21 - Acute and chronic respiratory failure with hypoxia; J96.22 - Acute and chronic respiratory failure with hypercapnia; J96.22 - Acute and chronic respiratory failure with hypercapnia Code(s): J96.20 - Acute and chronic respiratory failure, unspecified whether with hypoxia or hypercapnia Status: Acute (5) Gastric ulcer: Code(s): K25.9 - Gastric ulcer, unspecified as acute or chronic, without hemorrhage or perforation Status: Acute Assessment and Plan: Patient has a history of recent gastric ulceration along with Telma esophagitis. Follow-up EGD may be prudent at some point but would prefer to wait till respiratory issues have improved. No active bleeding at this time. Stool Hemoccult pending. Patient has not had a bowel movement for several days. Subjective Date/time seen: 12/09/22 07:58 Interval history: Patient alert comfortable this morning. Sitting upright eating breakfast. Still somewhat short of breath. Does not require constant oxygen however. She still coughs up brownish material. No active bleeding at this time. Review of Systems Review of Systems: Review of systems noncontributory. Exam Narrative: Physical exam reveals patient be alert. Comfortable at rest. HEENT exam reveals no icterus. Lungs reveal bilateral rhonchi. Heart without murmur. Abdomen benign. Bowel sounds present soft nontender. Objective Data Vital Signs Vital Signs: Vital Signs - 24 hr 12/08/22 08:07 12/08/22 08:07 12/08/22 08:00 Temperature 98.3 F Pulse Rate 76 76 75 Respiratory Rate 24 H 24 H Blood Pressure 148/68 H Pulse Oximetry 96 97 Oxygen Delivery High Flow Therapy with Na Oxygen Flow Rate 40 Fraction of Inspired Oxygen 40 12/08/22 08:18 12/08/22 08:00 12/08/22 08:00 Temperature Pulse Rate 83 77 Respiratory Rate 27 H Blood Pressure Pulse Oximetry 96 Oxygen Delivery High Flow Therapy with Na Oxygen Flow Rate 40 Fraction of Inspired Oxygen 40 12/08/22 10:00 12/08/22 12:00 12/08/22 12:00 Temperature 98.0 F Pulse Rate 79 99 96 Respiratory Rate 26 H Blood Pressure 129/74 Pulse Oximetry 96 Oxygen Delivery Oxygen Flow Rate Fraction of Inspired Oxygen 12/08/22 12:00 12/08/22 13:50 12/08/22 13:50 Temperature Pulse Rate 78 82 Respiratory Rate 24 H Blood Pressure Pulse Oximetry 96 95 Oxygen Delivery High Flow Therapy with Na Nasal Cannula Oxygen Flow Rate 40 3 Fraction of Inspired Oxygen 40 12/08/22 14:02 12/08/22 14:00 12/08/22 16:00 Temperature Pulse Rate 83 79 Respiratory Rate 21 H Blood Pressure Pulse Oximetry 94 Oxygen Delivery Nasal Cannula Oxygen Flow Rate 3 Fraction of Inspired Oxygen 12/08/22 1
[2022-12-09 08:13] LABS: NT Pro B Type Natriuretic Pept 4140 pg/mL (19.9-100)
[2022-12-09] MEDS: BUDESONIDE RESPULE NEB 0.5 MG/2 ML AMP INHALATION ×2 (08:28→20:55)
--- NOTE | 2022-12-09 08:29 | PM.PNPUL ---
Progress Note: A&P Assessment and Plan (1) COPD exacerbation: Code(s): J44.1 - Chronic obstructive pulmonary disease with (acute) exacerbation Status: Acute Assessment and Plan: 72-year-old woman with a history of CABG, hypertension, peripheral vascular disease status post bypass, mitral regurgitation, COPD With moderate to severe panlobular emphysema throughout all lung gra[place] on CT scan from 09/26/2022, I have no PFTs, on 3 L nasal cannula. 12/08 patient has no wheezing currently on levalbuterol 0.63 mg nebulized q.6 hours, ipratropium 0.5 mg nebulized Q 6 hours. she is also on cell meter all which I will discontinue. I will add nebulized budesonide at this time. Patient is on Solu-Medrol 40 IV q.12 hours and I will discontinue this and add Prednisone 40 mg p.o. q.day on 12/08/2022. COVID influenza RT PCR studies negative. Blood cultures negate. Sputum with normal daniel and yeast. I will patient has infiltrates on her chest x-ray and she has been treated with ceftriaxone and azithromycin and Levaquin on 12/05/2022. Patient was changed to vancomycin on 12/05 and cefepime on 12/06. Will continue vancomycin and cefepime at this time. 12/09 Patient tells me she continues to improve and is 80% back to her normal. She sat up in a chair yesterday and slept well. Currently she is on 3 L nasal cannula saturations 95%. she continues to have dark red secretions. Her white blood cell count is 11.1, creatinine is 0.5, BNP is increased from 975 to 4140. 1.2 L positive yesterday, cumulative positive 2.8 since admission, weight has increased from admission 36.2 kg to 42.5 kg. Lasix 20 IV q.day ordered. Chest x-ray shows no change in her right pneumothorax, mild improvement in the left mid lung zone infiltrate and continued infiltrate right upper and right lower lobes. Today patient does not have any wheezing and is on prednisone 40 mg p.o. and it is day 5 of steroids, continue levalbuterol 0.63 mg nebs q.6 hours, ipratropium 0.5 mg nebs q.6 hours, budesonide 0.5 mg neb q.[address] Hester, will follow with you. (2) Pneumonia: Code(s): J18.9 - Pneumonia, unspecified organism Status: Acute Assessment and Plan: Patient presented with shortness of breath, change in sputum and her initial chest x-ray was normal with no leukocytosis. She was then fluid resuscitated and has developed infiltrates. She had a leukocytosis of 12.3 on 12/07/2022. Will treat for pneumonia and she has been hospitalized in 08/2022 and 09/2022. 12/09 afebrile, white blood cell count 11.1. chest x-ray with minimally improved left mid lung zone infiltrate and no change in right upper lobe and right lower lobe infiltrates. I will continue vancomycin, day 5. Continue cefepime, day 4. She received azithromycin and Levaquin x1 dose on 12/05 and I will restart the Levaquin 500 mg q.day, day 1. (3) Acute on chronic respiratory failure: Qualifiers: Respiratory failure complication: hypoxia and hypercapnia Qualified Code(s): J96.21 - Acute and chronic respiratory failure with hypoxia; J96.22 - Acute and chronic respiratory failure with hypercapnia; J96.22 - Acute and chronic respiratory failure with hypercapnia Code(s): J96.20 - Acute and chronic respiratory failure, unspecified whether with hypoxia or hypercapnia Status: Acute Assessment and Plan: patient with moderate to severe panlobular emphysema on her CT scan, tobacco use and chronic hypercarbic and hypoxemic respiratory failure with a blood gas on admission 7.38/77/73 on 3 L nasal cannula. the patient had a home O2 assessment on 09/30/2022 and required no oxygen at rest and 2 L with activity. The patient has chronic hypercarbic respiratory failure from COPD and would benefit from noninvasive ventilation to prevent deteriorations and subsequent hospitalizations. At this time she cannot be placed on positive pressure ventila
[2022-12-09] MEDS: levoFLOXacin 500 MG/D5W 100 ML 500 MG/100 ML BAG 100 MG IVPB (08:46)
[2022-12-09] MEDS: DONEPEZIL HCL 10 MG TABLET PO (08:46)
[2022-12-09] MEDS: PREGABALIN (*CRX) 75 MG CAPSULE 150 MG PO ×2 (08:47→22:44)
[2022-12-09] MEDS: ESCITALOPRAM OXALATE 5 MG TABLET PO (08:47)
[2022-12-09] MEDS: PANTOPRAZOLE SODIUM IV 40 MG VIAL IV PUSH ×2 (08:47→22:34)
[2022-12-09] MEDS: predniSONE 20 MG TABLET 40 MG PO (08:55)
[2022-12-09] MEDS: FUROSEMIDE INJ 40 MG/4 ML VIAL 20 MG IV PUSH (08:57)
[2022-12-09] MEDS: guaiFENesin 12 HR 600 MG TABCR PO ×2 (08:57→22:34)
[2022-12-09] MEDS: ENOXAPARIN 40 MG/0.4 ML SYRINGE SUB-Q (11:02)
--- NOTE | 2022-12-09 12:46 | PM.IMPN ---
Progress Note: A&P Assessment and Plan (1) Acute on chronic respiratory failure: Qualifiers: Respiratory failure complication: hypoxia and hypercapnia Qualified Code(s): J96.21 - Acute and chronic respiratory failure with hypoxia; J96.22 - Acute and chronic respiratory failure with hypercapnia; J96.22 - Acute and chronic respiratory failure with hypercapnia Code(s): J96.20 - Acute and chronic respiratory failure, unspecified whether with hypoxia or hypercapnia Status: Acute Assessment and Plan: The patient has a history of COPD. She is chronically on oxygen at home. Patient has hypercapnia and hypoxia. The patient is on high-flow oxygen at this time. 12/09/2022 interval history: 72 y/o female with history of smoking and COPD, presented with shortness of breath, and anemia there was c/o hemoptysis, and recent EGD showed gastric ulcerations, Patient is being treated with PPI, and hgb is stable, Patient shortness of breath requiring high flow oxygen, seen by cephalometric tracer does not suspect CHF, however her BNP is elevated and branch service specialist has started on low dose of IV lasix, patient has long history of smoking most likely exacerbation of COPD, consulted branch service specialist and seen patient suspect pneumonia and continue vancomycin and Cefepime, also added azithromycin to cover fot atypical pneumonia, patient is alos treated with prednisone currently on 40mg, patient with pneunothorax upon arrival now healing, for this patient is not anticoagulated, will add lovenox to covet for DVT, patient daughter is present in the room. will have PT/OT evaluate the patient. patient appears undernourished, will consult handbag operator. (2) Pneumothorax: Qualifiers: Pneumothorax type: postprocedural Qualified Code(s): J95.811 - Postprocedural pneumothorax Code(s): J93.9 - Pneumothorax, unspecified Status: Acute Assessment and Plan: Possible postprocedure? it is unclear if a central line was attempted in the IJ. Surgery has been consulted (3) Dementia: Code(s): F03.90 - Unspecified dementia, unspecified severity, without behavioral disturbance, psychotic disturbance, mood disturbance, and anxiety Status: Acute Assessment and Plan: -continue with Aricept (4) COPD exacerbation: Code(s): J44.1 - Chronic obstructive pulmonary disease with (acute) exacerbation Status: Acute Assessment and Plan: -continue with Solu-Medrol. Continue with DuoNebs. -ABGs are improving. -however the patient did not like she was getting fluid overload so I gave her some Lasix. -the patient was started on vancomycin and Levaquin as she appears she may be septic however her chest x-ray did not show any pneumonia. She was given a dose of azithromycin and Rocephin in the emergency room. -blood and sputum cultures are pending (5) Chronic anticoagulation: Code(s): Z79.01 - terminal operations supervisor (current) use of anticoagulants Status: Acute Assessment and Plan: -continue with Eliquis. The patient has had bilateral fem-pop and she states that is why she is on the Eliquis. (6) Hypertension: Qualifiers: Hypertension type: primary hypertension Qualified Code(s): I10 - Essential (primary) hypertension Code(s): I10 - Essential (primary) hypertension Status: Chronic Assessment and Plan: -I am holding her metoprolol at this time is she is on Levophed and hypotensive (7) Anemia: Qualifiers: Anemia type: iron deficiency Iron deficiency anemia type: chronic blood loss Qualified Code(s): D50.0 - Iron deficiency anemia secondary to blood loss (chronic) Code(s): D64.9 - Anemia, unspecified Status: Acute Assessment and Plan: H&H is stable. However her MCV is elevated 101.6. (8) Coronary artery disease: Qualifiers: Coronary Disease-Associated Artery/Lesion type: [place] artery [place] vs. transplanted heart: [place] heart Associat
[2022-12-09] MEDS: MIRTAZAPINE 15 MG TABLET PO (22:34)
[2022-12-09] MEDS: rOPINIRole HCL 0.25 MG TABLET PO (22:35)
[2022-12-09] MEDS: ROSUVASTATIN 10 MG TABLET 40 MG PO (22:35)
[2022-12-09 23:10] LABS: Vancomycin Trough 21.4 ug/mL (10.0-20.0)
[2022-12-10] VITALS (16 sets, daily range): BP systolic 121–155; BP diastolic 75–84; PULSE 77–116; RESP 14–24; TEMP 35.8–36.5; O2SAT 91–94
[2022-12-10] MEDS: IPRATROPIUM BR 0.02% INH SOLN 0.5 MG/2.5 ML VIAL INHALATION ×4 (02:30→21:34)
[2022-12-10] MEDS: LEVALBUTEROL NEB 1.25 MG/3 ML 0.63 MG INHALATION ×4 (02:30→21:34)
[2022-12-10 05:30] LABS: Hematocrit 29.7 % (37.0-47.0); Hemoglobin 9.4 g/dL (12.0-15.0); Mean Corpuscular HGB Conc 31.6 g/dl (32-36); Mean Corpuscular Hemoglobin 30.4 pg (26-34); Mean Corpuscular Volume 96.1 fl (80-100); Mean Platelet Volume 12.2 fl (7.4-10.4); Platelet Count Result 141 k/mm3 (150-375); Red Blood Count 3.09 M/mm3 (4.2-5.4); Red Cell Distribution Width 16.4 % (11.5-14.5); White Blood Count 9.5 K/mm3 (4.5-10.0)
[2022-12-10] MEDS: CENTRAL LINE FLUSH 10 ML IV PUSH ×3 (05:36→21:02)
[2022-12-10 05:47] LABS: Anion Gap 2 mmol/L (8-16); Blood Urea Nitrogen 20 mg/dL (7-17); Calcium 7.9 mg/dL (8.4-10.2); Carbon Dioxide 35 mmol/L (22-30); Chloride 101 mmol/L (98-107); Estimated CRCL calculation 59 ml/min; Estimated Glomerular Filt Rate > 60; Glucose 84 mg/dL (65-110); Potassium 3.8 mmol/L (3.4-5.0); Sodium 138 mmol/L (137-145)
[2022-12-10] MEDS: BUDESONIDE RESPULE NEB 0.5 MG/2 ML AMP INHALATION ×2 (08:14→21:34)
--- NOTE | 2022-12-10 08:42 | WPDGIPROGNO ---
Progress Note: A&P Assessment and Plan (1) Hemoptysis: Code(s): R04.2 - Hemoptysis Status: Acute Assessment and Plan: Pulmonary Service following. No more hemoptysis reported. (2) Pneumonia: Code(s): J18.9 - Pneumonia, unspecified organism Status: Acute Assessment and Plan: Pulmonary Service following. Recently had hemoptysis this appears to have stopped. Likely on this basis. (3) COPD exacerbation: Code(s): J44.1 - Chronic obstructive pulmonary disease with (acute) exacerbation Status: Acute (4) Pneumothorax: Qualifiers: Pneumothorax type: postprocedural Qualified Code(s): J95.811 - Postprocedural pneumothorax Code(s): J93.9 - Pneumothorax, unspecified Status: Acute Assessment and Plan: Appears resolved (5) Gastric ulcer: Code(s): K25.9 - Gastric ulcer, unspecified as acute or chronic, without hemorrhage or perforation Status: Acute Assessment and Plan: History of gastric ulcer several months ago. Plan to continue patient on pantoprazole or similar PPI agent. At this stage this is likely improved if anticoagulation required it should be safe to resume. We may consider elective follow-up EGD to document healing of ulcer next week (6) Acute on chronic anemia: Code(s): D64.9 - Anemia, unspecified Status: Acute Assessment and Plan: Hemoglobin stable. Decline in hemoglobin appears to be related to hemoptysis. (7) Peripheral vascular disease: Code(s): I73.9 - Peripheral vascular disease, unspecified Status: Chronic Assessment and Plan: Okay to resume anticoagulation if necessary. Has been 2 months since ulcer was identified. Subjective Date/time seen: 12/10/22 08:42 Interval history: Patient alert more comfortable this morning. Tolerating diet. No additional hemoptysis reported. Had good bowel movement with no evidence of blood loss. Denies abdominal pain. Review of Systems Review of Systems: Review of systems noncontributory. Exam Narrative: Physical exam reveals patient be alert. Comfortable at rest. HEENT exam without icterus. Lungs reveal few rhonchi. Heart without murmur. Abdomen bowel sounds present soft nontender with no organomegaly. Objective Data Vital Signs Vital Signs: Vital Signs - 24 hr 12/09/22 08:45 12/09/22 10:00 12/09/22 12:00 Temperature Pulse Rate 90 106 H Respiratory Rate 19 Blood Pressure Pulse Oximetry 95 Oxygen Delivery Nasal Cannula Oxygen Flow Rate 3 12/09/22 12:00 12/09/22 13:31 12/09/22 12:00 Temperature 98.1 F Pulse Rate 119 H 105 H Respiratory Rate 23 H Blood Pressure 127/77 Pulse Oximetry 94 Oxygen Delivery Nasal Cannula Oxygen Flow Rate 3 12/09/22 14:20 12/09/22 14:40 12/09/22 14:54 Temperature Pulse Rate 111 H 106 H Respiratory Rate 23 H 22 H Blood Pressure Pulse Oximetry Oxygen Delivery Nasal Cannula Oxygen Flow Rate 3 12/09/22 16:00 12/09/22 16:00 12/09/22 20:55 Temperature 98.5 F Pulse Rate 100 96 95 Respiratory Rate 23 H Blood Pressure 112/71 Pulse Oximetry 95 93 Oxygen Delivery Nasal Cannula Oxygen Flow Rate 3 12/09/22 20:55 12/10/22 02:25 12/10/22 02:34 Temperature Pulse Rate 95 87 83 Respiratory Rate 20 24 H 20 Blood Pressure Pulse Oximetry Oxygen Delivery Oxygen Flow Rate 12/10/22 00:00 12/09/22 22:15 12/10/22 00:00 Temperature 97 F L Pulse Rate 95 83 83 Respiratory Rate 18 Blood Pressure 146/75 H Pulse Oximetry 94 Oxygen Delivery Oxygen Flow Rate 12/10/22 04:00 12/10/22 06:00 Temperature 96.4 F L Pulse Rate 83 91 Respiratory Rate 14 Blood Pressure 155/84 H Pulse Oximetry 94 Oxygen Delivery Oxygen Flow Rate Intake/Output Intake/Output: Intake & Output 12/07/22 12/08/22 12/09/22 12/10/22 23:59 23:59 23:59 23:59 Intake Total 1780 2270 2060 300 Output Total
[2022-12-10] MEDS: levoFLOXacin 500 MG/D5W 100 ML 500 MG/100 ML BAG 100 MG IVPB (09:10)
[2022-12-10] MEDS: PANTOPRAZOLE SODIUM IV 40 MG VIAL IV PUSH ×2 (09:12→21:01)
[2022-12-10] MEDS: FUROSEMIDE INJ 40 MG/4 ML VIAL 20 MG IV PUSH (09:13)
[2022-12-10] MEDS: guaiFENesin 12 HR 600 MG TABCR PO ×2 (09:14→13:31)
[2022-12-10] MEDS: DONEPEZIL HCL 10 MG TABLET PO (09:14)
[2022-12-10] MEDS: ESCITALOPRAM OXALATE 5 MG TABLET PO (09:14)
[2022-12-10] MEDS: ENOXAPARIN 40 MG/0.4 ML SYRINGE SUB-Q (09:15)
--- NOTE | 2022-12-10 09:52 | PM.PNPUL ---
Progress Note: A&P Assessment and Plan (1) COPD exacerbation: Code(s): J44.1 - Chronic obstructive pulmonary disease with (acute) exacerbation Status: Acute Assessment and Plan: 72-year-old woman with a history of CABG, hypertension, peripheral vascular disease status post bypass, mitral regurgitation, COPD With moderate to severe panlobular emphysema throughout all lung [place] on CT scan from 09/26/2022, I have no PFTs, on 3 L nasal cannula. 12/08 patient has no wheezing currently on levalbuterol 0.63 mg nebulized q.6 hours, ipratropium 0.5 mg nebulized Q 6 hours. she is also on cell meter all which I will discontinue. I will add nebulized budesonide at this time. Patient is on Solu-Medrol 40 IV q.12 hours and I will discontinue this and add Prednisone 40 mg p.o. q.day on 12/08/2022. COVID influenza RT PCR studies negative. Blood cultures negate. Sputum with normal daniel and yeast. I will patient has infiltrates on her chest x-ray and she has been treated with ceftriaxone and azithromycin and Levaquin on 12/05/2022. Patient was changed to vancomycin on 12/05 and cefepime on 12/06. Will continue vancomycin and cefepime at this time. 12/09 Patient tells me she continues to improve and is 80% back to her normal. She sat up in a chair yesterday and slept well. Currently she is on 3 L nasal cannula saturations 95%. she continues to have dark red secretions. Her white blood cell count is 11.1, creatinine is 0.5, BNP is increased from 975 to 4140. 1.2 L positive yesterday, cumulative positive 2.8 since admission, weight has increased from admission 36.2 kg to 42.5 kg. Lasix 20 IV q.day ordered. Chest x-ray shows no change in her right pneumothorax, mild improvement in the left mid lung zone infiltrate and continued infiltrate right upper and right lower lobes. Today patient does not have any wheezing and is on prednisone 40 mg p.o. and it is day 5 of steroids will DC, continue levalbuterol 0.63 mg nebs q.6 hours, ipratropium 0.5 mg nebs q.6 hours, budesonide 0.5 mg neb q.12 hours. Mucinex 600 started. 12/10 Patient continues to slowly improve. She says her breathing at rest is 80-85% back to her normal. She slept well last night. She continues to produce thick phlegm that now appears dark brown rather than dark red. She is afebrile. White blood cell count 9.5, creatinine 0.5. Patient is currently on 3 L nasal cannula saturations 93%. Chest x-ray with continued right apical pneumothorax (possible improved) and unchanged infiltrates. Diuresed 450 ml on lasix. Patient with continued pneumothorax and will check CT scan of the chest today. No wheezes. Continue levalbuterol 0.63 mg nebs q.6 hours, ipratropium 0.5 mg nebs q.6 hours, budesonide 0.5 mg neb q.12 hours. increase Mucinex to 1200 BID. No PEP or vest as with pneumothorax. Stable on 3 L nasal cannula. Discussed with Dr. Driver, will follow with you. (2) Pneumonia: Code(s): J18.9 - Pneumonia, unspecified organism Status: Acute Assessment and Plan: Patient presented with shortness of breath, change in sputum and her initial chest x-ray was normal with no leukocytosis. She was then fluid resuscitated and has developed infiltrates. She had a leukocytosis of 12.3 on 12/07/2022. Will treat for pneumonia and she has been hospitalized in 08/2022 and 09/2022. 12/09 afebrile, white blood cell count 11.1. chest x-ray with minimally improved left mid lung zone infiltrate and no change in right upper lobe and right lower lobe infiltrates. I will continue vancomycin, day 5. Continue cefepime, day 4. She received azithromycin and Levaquin x1 dose on 12/05 and I will restart the Levaquin 500 mg q.day, day 1. 12/10 Afebrile, white blood cell count 9.5, day 6 Vanco, day 5 cefepime, day 2 Levaquin will continue. (3) Acute on chronic respiratory failure: Qualifiers: Respiratory failure complication: hypoxia and hyperc
--- NOTE | 2022-12-10 13:19 | PM.IMPN ---
Progress Note: A&P Assessment and Plan (1) Acute on chronic respiratory failure: Qualifiers: Respiratory failure complication: hypoxia and hypercapnia Qualified Code(s): J96.21 - Acute and chronic respiratory failure with hypoxia; J96.22 - Acute and chronic respiratory failure with hypercapnia; J96.22 - Acute and chronic respiratory failure with hypercapnia Code(s): J96.20 - Acute and chronic respiratory failure, unspecified whether with hypoxia or hypercapnia Status: Acute Assessment and Plan: The patient has a history of COPD. She is chronically on oxygen at home. Patient has hypercapnia and hypoxia. The patient is on high-flow oxygen at this time. 12/09/2022 interval history: 72 y/o female with history of smoking and COPD, presented with shortness of breath, and anemia there was c/o hemoptysis, and recent EGD showed gastric ulcerations, Patient is being treated with PPI, and hgb is stable, Patient shortness of breath requiring high flow oxygen, seen by past due accounts clerk does not suspect CHF, however her BNP is elevated and director corporate compliance has started on low dose of IV lasix, patient has long history of smoking most likely exacerbation of COPD, consulted director corporate compliance and seen patient suspect pneumonia and continue vancomycin and Cefepime, also added azithromycin to cover fot atypical pneumonia, patient is alos treated with prednisone currently on 40mg, patient with pneunothorax upon arrival now healing, for this patient is not anticoagulated, will add lovenox to covet for DVT, patient daughter is present in the room. will have PT/OT evaluate the patient. patient appears undernourished, will consult senior principal architect. (2) Pneumothorax: Qualifiers: Pneumothorax type: postprocedural Qualified Code(s): J95.811 - Postprocedural pneumothorax Code(s): J93.9 - Pneumothorax, unspecified Status: Acute Assessment and Plan: Possible postprocedure? it is unclear if a central line was attempted in the IJ. Surgery has been consulted Plan to check CT chest today (3) Dementia: Code(s): F03.90 - Unspecified dementia, unspecified severity, without behavioral disturbance, psychotic disturbance, mood disturbance, and anxiety Status: Acute Assessment and Plan: -continue with Aricept (4) COPD exacerbation: Code(s): J44.1 - Chronic obstructive pulmonary disease with (acute) exacerbation Status: Acute Assessment and Plan: -continue with Solu-Medrol. Continue with DuoNebs. -ABGs are improving. -On IV Lasix - on vanc cefepime and Levaquin -blood and sputum cultures are pending (5) Chronic anticoagulation: Code(s): Z79.01 - termite inspector (current) use of anticoagulants Status: Acute Assessment and Plan: -continue with Eliquis. The patient has had bilateral fem-pop and she states that is why she is on the Eliquis. Eliquis currently on hold (6) Hypertension: Qualifiers: Hypertension type: primary hypertension Qualified Code(s): I10 - Essential (primary) hypertension Code(s): I10 - Essential (primary) hypertension Status: Chronic Assessment and Plan: continue to monitor (7) Anemia: Qualifiers: Anemia type: iron deficiency Iron deficiency anemia type: chronic blood loss Qualified Code(s): D50.0 - Iron deficiency anemia secondary to blood loss (chronic) Code(s): D64.9 - Anemia, unspecified Status: Acute Assessment and Plan: H&H is stable. However her MCV is elevated 101.6. (8) Coronary artery disease: Qualifiers: Coronary Disease-Associated Artery/Lesion type: [place] artery [place] vs. transplanted heart: [place] heart Associated angina: without angina Qualified Code(s): I25.10 - Atherosclerotic heart disease of [place] coronary artery without angina pectoris Code(s): I25.10 - Atherosclerotic heart disease of [place] coronary artery without angina pectoris Status: C
[2022-12-10] MEDS: ASPIRIN 81 MG ENTERIC TABLET PO (13:31)
[2022-12-10] MEDS: PREGABALIN (*CRX) 75 MG CAPSULE 150 MG PO ×2 (14:28→21:00)
[2022-12-10] MEDS: guaiFENesin 12 HR 600 MG TABCR 1200 MG PO (21:00)
[2022-12-10] MEDS: rOPINIRole HCL 0.25 MG TABLET PO (21:01)
[2022-12-10] MEDS: ROSUVASTATIN 10 MG TABLET 40 MG PO (21:01)
[2022-12-10] MEDS: MIRTAZAPINE 15 MG TABLET PO (21:01)
[2022-12-11] VITALS (16 sets, daily range): BP systolic 88–136; BP diastolic 40–63; PULSE 90–136; RESP 17–22; TEMP 36.1–36.7; O2SAT 90–93
[2022-12-11 05:44] LABS: Hematocrit 30.4 % (37.0-47.0); Hemoglobin 9.6 g/dL (12.0-15.0); Mean Corpuscular HGB Conc 31.6 g/dl (32-36); Mean Corpuscular Hemoglobin 29.8 pg (26-34); Mean Corpuscular Volume 94.4 fl (80-100); Mean Platelet Volume 12.4 fl (7.4-10.4); Platelet Count Result 166 k/mm3 (150-375); Red Blood Count 3.22 M/mm3 (4.2-5.4); White Blood Count 13.4 K/mm3 (4.5-10.0)
[2022-12-11 05:54] LABS: Estimated CRCL calculation 59 ml/min; Estimated Glomerular Filt Rate > 60; Magnesium 1.8 mg/dL (1.6-2.3)
[2022-12-11] MEDS: CENTRAL LINE FLUSH 10 ML IV PUSH ×3 (07:36→22:06)
[2022-12-11] MEDS: ESCITALOPRAM OXALATE 5 MG TABLET PO (08:48)
[2022-12-11] MEDS: DONEPEZIL HCL 10 MG TABLET PO (08:48)
[2022-12-11] MEDS: guaiFENesin 12 HR 600 MG TABCR 1200 MG PO ×2 (08:49→22:04)
[2022-12-11] MEDS: ENOXAPARIN 40 MG/0.4 ML SYRINGE SUB-Q ×2 (08:49→22:05)
[2022-12-11] MEDS: IPRATROPIUM BR 0.02% INH SOLN 0.5 MG/2.5 ML VIAL INHALATION ×3 (08:50→22:05)
[2022-12-11] MEDS: LEVALBUTEROL NEB 1.25 MG/3 ML 0.63 MG INHALATION ×3 (08:50→22:06)
[2022-12-11] MEDS: FUROSEMIDE INJ 40 MG/4 ML VIAL 20 MG IV PUSH (08:52)
[2022-12-11] MEDS: PREGABALIN (*CRX) 75 MG CAPSULE 150 MG PO ×2 (08:52→22:03)
[2022-12-11] MEDS: PANTOPRAZOLE SODIUM IV 40 MG VIAL IV PUSH ×2 (08:52→22:03)
[2022-12-11] MEDS: BUDESONIDE RESPULE NEB 0.5 MG/2 ML AMP INHALATION ×2 (09:00→22:06)
[2022-12-11] MEDS: levoFLOXacin 500 MG/D5W 100 ML 500 MG/100 ML BAG 100 MG IVPB (09:17)
[2022-12-11 09:19] LABS: Anion Gap 2 mmol/L (8-16); Blood Urea Nitrogen 19 mg/dL (7-17); Calcium 8.2 mg/dL (8.4-10.2); Carbon Dioxide 35 mmol/L (22-30); Chloride 100 mmol/L (98-107); Estimated CRCL calculation 58 ml/min; Estimated Glomerular Filt Rate > 60; Glucose 81 mg/dL (65-110); Potassium 3.8 mmol/L (3.4-5.0); Sodium 137 mmol/L (137-145)
--- NOTE | 2022-12-11 10:40 | PM.IMPN ---
Progress Note: A&P Assessment and Plan (1) Acute on chronic respiratory failure: Qualifiers: Respiratory failure complication: hypoxia and hypercapnia Qualified Code(s): J96.21 - Acute and chronic respiratory failure with hypoxia; J96.22 - Acute and chronic respiratory failure with hypercapnia; J96.22 - Acute and chronic respiratory failure with hypercapnia Code(s): J96.20 - Acute and chronic respiratory failure, unspecified whether with hypoxia or hypercapnia Status: Acute Assessment and Plan: The patient has a history of COPD. She is chronically on oxygen at home. Patient has hypercapnia and hypoxia. The patient is on high-flow oxygen at this time. initially required Airvo. Oxygen requirement stable On broad-spectrum antibiotics and prednisone (2) Pneumothorax: Qualifiers: Pneumothorax type: postprocedural Qualified Code(s): J95.811 - Postprocedural pneumothorax Code(s): J93.9 - Pneumothorax, unspecified Status: Acute Assessment and Plan: Possible postprocedure? it is unclear if a central line was attempted in the IJ. Surgery has been consulted CT chest with small apical pneumothorax (3) Dementia: Code(s): F03.90 - Unspecified dementia, unspecified severity, without behavioral disturbance, psychotic disturbance, mood disturbance, and anxiety Status: Acute Assessment and Plan: -continue with Aricept (4) COPD exacerbation: Code(s): J44.1 - Chronic obstructive pulmonary disease with (acute) exacerbation Status: Acute Assessment and Plan: -continue with Solu-Medrol. Continue with DuoNebs. -ABGs are improving. -On IV Lasix - on vanc cefepime and Levaquin -blood and sputum cultures are pending (5) Chronic anticoagulation: Code(s): Z79.01 - senior living (current) use of anticoagulants Status: Acute Assessment and Plan: -continue with Eliquis. The patient has had bilateral fem-pop and she states that is why she is on the Eliquis. Eliquis currently on hold Switched to therapeutic dose Lovenox (6) Hypertension: Qualifiers: Hypertension type: primary hypertension Qualified Code(s): I10 - Essential (primary) hypertension Code(s): I10 - Essential (primary) hypertension Status: Chronic Assessment and Plan: continue to monitor (7) Anemia: Qualifiers: Anemia type: iron deficiency Iron deficiency anemia type: chronic blood loss Qualified Code(s): D50.0 - Iron deficiency anemia secondary to blood loss (chronic) Code(s): D64.9 - Anemia, unspecified Status: Acute Assessment and Plan: H&H is stable. However her MCV is elevated 101.6. (8) Coronary artery disease: Qualifiers: Associated angina: without angina Coronary Disease-Associated Artery/Lesion type: [place] artery [place] vs. transplanted heart: [place] heart Qualified Code(s): I25.10 - Atherosclerotic heart disease of [place] coronary artery without angina pectoris Code(s): I25.10 - Atherosclerotic heart disease of [place] coronary artery without angina pectoris Status: Chronic Assessment and Plan: -patient is on Eliquis the patient tells me that she has had 9 bypass grafts. -continue with rosuvastatin -continue with aspirin which is resume today Eliquis on hold Will resume therapeutic dose Lovenox today 40 mg b.i.d. in case she needs any procedure discussed with pulmonary Plan sinus tachycardia: Restart metoprolol 1 dose of IV metoprolol given Subjective Date/time seen: 12/11/22 10:40 Interval history: patient presented on 12/05/2022 with shortness of breath associated with productive cough. History of COPD and on oxygen at home. Patient was hypotensive on admission COVID flu negative chest x-ray negative ABG with pCO2 of 76.5. Central line attempt in the ER unsuccessful PICC placed. Post PICC small pneumothorax noted. Lactate normal WBC count normal B
[2022-12-11] MEDS: METOPROLOL TARTRATE INJ 5 MG/5 ML VIAL 2.5 MG IV PUSH (10:47)
[2022-12-11] MEDS: ASPIRIN 81 MG ENTERIC TABLET PO (10:47)
[2022-12-11] MEDS: METOPROLOL TARTRATE 25 MG TABLET PO (11:21)
[2022-12-11 13:29] LABS: Vancomycin Trough 20.4 ug/mL (10.0-20.0)
[2022-12-11] MEDS: DORNASE ALFA INH SOLN 1 MG/ML 2.5 ML AMP 2.5 MG INHALATION ×2 (14:40→22:06)
[2022-12-11] MEDS: NYSTATIN 100,000 UNITS/ML SUSP 5 ML ORAL.SUSP PO ×2 (17:19→22:03)
[2022-12-11] MEDS: ROSUVASTATIN 10 MG TABLET 40 MG PO (22:03)
[2022-12-11] MEDS: MIRTAZAPINE 15 MG TABLET PO (22:04)
[2022-12-11] MEDS: rOPINIRole HCL 0.25 MG TABLET PO (22:04)
[2022-12-12] VITALS (19 sets, daily range): BP systolic 89–105; BP diastolic 40–67; PULSE 88–143; RESP 16–20; TEMP 36.2–37.1; O2SAT 90–98
[2022-12-12] MEDS: LEVALBUTEROL NEB 1.25 MG/3 ML 0.63 MG INHALATION ×4 (02:58→21:30)
[2022-12-12] MEDS: IPRATROPIUM BR 0.02% INH SOLN 0.5 MG/2.5 ML VIAL INHALATION ×4 (02:58→21:30)
[2022-12-12 03:39] LABS: Hematocrit 28.1 % (37.0-47.0); Hemoglobin 8.9 g/dL (12.0-15.0); Mean Corpuscular HGB Conc 31.7 g/dl (32-36); Mean Corpuscular Hemoglobin 30.8 pg (26-34); Mean Corpuscular Volume 97.2 fl (80-100); Mean Platelet Volume 12.7 fl (7.4-10.4); Platelet Count Result 150 k/mm3 (150-375); Red Blood Count 2.89 M/mm3 (4.2-5.4); Red Cell Distribution Width 16.1 % (11.5-14.5); White Blood Count 13.2 K/mm3 (4.5-10.0)
[2022-12-12 03:48] LABS: Anion Gap 1 mmol/L (8-16); Blood Urea Nitrogen 18 mg/dL (7-17); Carbon Dioxide 37 mmol/L (22-30); Chloride 99 mmol/L (98-107); Estimated CRCL calculation 58 ml/min; Estimated Glomerular Filt Rate > 60; Glucose 109 mg/dL (65-110); Magnesium 1.8 mg/dL (1.6-2.3); Potassium 3.4 mmol/L (3.4-5.0); Sodium 137 mmol/L (137-145)
[2022-12-12] MEDS: CENTRAL LINE FLUSH 10 ML IV PUSH ×3 (04:03→20:48)
[2022-12-12] MEDS: BUDESONIDE RESPULE NEB 0.5 MG/2 ML AMP INHALATION ×2 (08:08→21:30)
[2022-12-12] MEDS: DORNASE ALFA INH SOLN 1 MG/ML 2.5 ML AMP 2.5 MG INHALATION ×2 (08:09→21:30)
[2022-12-12] MEDS: DONEPEZIL HCL 10 MG TABLET PO (09:40)
[2022-12-12] MEDS: ASPIRIN 81 MG ENTERIC TABLET PO (09:40)
[2022-12-12] MEDS: ESCITALOPRAM OXALATE 5 MG TABLET PO (09:40)
[2022-12-12] MEDS: NYSTATIN 100,000 UNITS/ML SUSP 5 ML ORAL.SUSP PO ×4 (09:41→20:44)
[2022-12-12] MEDS: ENOXAPARIN 40 MG/0.4 ML SYRINGE SUB-Q ×2 (09:41→20:45)
[2022-12-12] MEDS: guaiFENesin 12 HR 600 MG TABCR 1200 MG PO ×2 (09:41→20:45)
[2022-12-12] MEDS: PREGABALIN (*CRX) 75 MG CAPSULE 150 MG PO ×2 (09:41→20:44)
[2022-12-12] MEDS: FUROSEMIDE INJ 40 MG/4 ML VIAL 20 MG IV PUSH (09:42)
[2022-12-12] MEDS: PANTOPRAZOLE SODIUM IV 40 MG VIAL IV PUSH ×2 (09:42→20:45)
[2022-12-12] MEDS: levoFLOXacin 500 MG/D5W 100 ML 500 MG/100 ML BAG 100 MG IVPB (10:09)
--- NOTE | 2022-12-12 12:02 | PCNFU ---
Nutrition Follow-Up Complete: Increased Energy Expenditure as related to COPD as evidenced by BMI: 17.6 underweight. Goal:Adequate Intake of at least 75% of meals/supplements Pt current nutrition is Regular, nutritional ice cream BID. Nutrition recommendation: Continue with current plan of care. Last recorded weight is 42.3 kg - stable at this time. Bowel Motility: +BM 12/09 Labs Reviewed: Hgb:8.9, HCT:28.1, BUN:18, Cr:0.5 Meds Noted: lasix, lovenox, remeron Skin: WNL Additional Notes: Pt continues on a regular diet, intake improved to 75-100% most meals. continue to encourage good po intake, Monitor intake, wt, labs. RD will monitor every 5 days.
--- NOTE | 2022-12-12 12:03 | P.PNPL_ITS ---
Progress Note: A&P Assessment and Plan (1) COPD exacerbation: Code(s): J44.1 - Chronic obstructive pulmonary disease with (acute) exacerbation Status: Acute Assessment and Plan: 72-year-old woman with a history of CABG, hypertension, peripheral vascular disease status post bypass, mitral regurgitation, COPD With moderate to severe panlobular emphysema throughout all lung [place] on CT scan from 09/26/2022, I have no PFTs, on 3 L nasal cannula. 12/08 patient has no wheezing currently on levalbuterol 0.63 mg nebulized q.6 hours, ipratropium 0.5 mg nebulized Q 6 hours. she is also on cell meter all which I will discontinue. I will add nebulized budesonide at this time. Patient is on Solu-Medrol 40 IV q.12 hours and I will discontinue this and add Prednisone 40 mg p.o. q.day on 12/08/2022. COVID influenza RT PCR studies negative. Blood cultures negate. Sputum with normal daniel and yeast. I will patient has infiltrates on her chest x-ray and she has been treated with ceftriaxone and azithromycin and Levaquin on 12/05/2022. Patient was changed to vancomycin on 12/05 and cefepime on 12/06. Will continue vancomycin and cefepime at this time. 12/09 Patient tells me she continues to improve and is 80% back to her normal. She sat up in a chair yesterday and slept well. Currently she is on 3 L nasal cannula saturations 95%. she continues to have dark red secretions. Her white blood cell count is 11.1, creatinine is 0.5, BNP is increased from 975 to 4140. 1.2 L positive yesterday, cumulative positive 2.8 since admission, weight has increased from admission 36.2 kg to 42.5 kg. Lasix 20 IV q.day ordered. Chest x-ray shows no change in her right pneumothorax, mild improvement in the left mid lung zone infiltrate and continued infiltrate right upper and right lower lobes. Today patient does not have any wheezing and is on prednisone 40 mg p.o. and it is day 5 of steroids will DC, continue levalbuterol 0.63 mg nebs q.6 hours, ipratropium 0.5 mg nebs q.6 hours, budesonide 0.5 mg neb q.12 hours. Mucinex 600 started. 12/10 Patient continues to slowly improve. She says her breathing at rest is 80-85% back to her normal. She slept well last night. She continues to produce thick phlegm that now appears dark brown rather than dark red. She is afebrile. White blood cell count 9.5, creatinine 0.5. Patient is currently on 3 L nasal cannula saturations 93%. Chest x-ray with continued right apical pneumothorax (possible improved) and unchanged infiltrates. Diuresed 450 ml on lasix. Patient with continued pneumothorax and will check CT scan of the chest today. No wheezes. Continue levalbuterol 0.63 mg nebs q.6 hours, ipratropium 0.5 mg nebs q.6 hours, budesonide 0.5 mg neb q.12 hours. increase Mucinex to 1200 BID. No PEP or vest as with pneumothorax. Stable on [address] scan of the chest showed severe centrilobular emphysema in all lung [place], small right apical pneumothorax, small right pleural effusion, right upper lobe infiltrates left upper lobe infiltrates occasional tree-in-bud infiltrates. 12/11 patient slept well and feels about the same. She states that the cough is nearly resolved now. The phlegm is improved and her last phlegm was described as green without any evidence of blood. Her white blood cell count is 13.5, creatinine is 0.5. She still complains of difficulty expectorating. Saturations on 4 L nasal cannula were 92%. Lasix 20 IV and diuresed 600 mL yesterday. Cumulative +2 0.0 L since admission. chest x-ray with continued right apical pneumothorax, small right effusion, minimal improvement in her infiltrates. No wheezes. Continue levalbuterol 0.63 mg nebs q.6 hours, ipratrop
[2022-12-12 13:16] LABS: Vancomycin Trough 19.8 ug/mL (10.0-20.0)
--- NOTE | 2022-12-12 15:10 | PC.NURSE ---
Pt has been resting in bed. Pt has had elevated heart rate with activity. Pt has had no complaints and expresses no other needs at this time. Will continue to monitor pt.
--- NOTE | 2022-12-12 15:15 | PM.IMPN ---
Progress Note: A&P Assessment and Plan (1) Acute on chronic respiratory failure: Qualifiers: Respiratory failure complication: hypoxia and hypercapnia Qualified Code(s): J96.21 - Acute and chronic respiratory failure with hypoxia; J96.22 - Acute and chronic respiratory failure with hypercapnia; J96.22 - Acute and chronic respiratory failure with hypercapnia Code(s): J96.20 - Acute and chronic respiratory failure, unspecified whether with hypoxia or hypercapnia Status: Acute Assessment and Plan: The patient has a history of COPD. She is chronically on oxygen at home. Patient has hypercapnia and hypoxia. The patient is on high-flow oxygen at this time. initially required Airvo. Oxygen requirement stable On broad-spectrum antibiotics and prednisone 12/12/2022 interval history:72 y/o female with history of smoking and COPD, presented with shortness of breath, and anemia there was c/o hemoptysis, and recent EGD showed gastric ulcerations, Patient is being treated with PPI, and hgb is stable, Patient shortness of breath requiring high flow oxygen,? seen by film cleaner does not suspect CHF, however her BNP is elevated and dermatology physician assistant has started on low dose of IV lasix, ? patient has long history of smoking most likely exacerbation of COPD, consulted dermatology physician assistant and seen patient suspect pneumonia and continue vancomycin and Cefepime, also added azithromycin to cover fot atypical pneumonia, patient is also treated with prednisone currently on 40mg,? patient with pneunothorax upon arrival now healing, for this patient is not anticoagulated, will add lovenox to covet for DVT, today patient worked with PT/OT and did well, patient be seen dermatology physician assistant and further recommendation to follow. (2) Pneumothorax: Qualifiers: Pneumothorax type: postprocedural Qualified Code(s): J95.811 - Postprocedural pneumothorax Code(s): J93.9 - Pneumothorax, unspecified Status: Acute Assessment and Plan: Possible postprocedure? it is unclear if a central line was attempted in the IJ. Surgery has been consulted CT chest with small apical pneumothorax (3) Dementia: Code(s): F03.90 - Unspecified dementia, unspecified severity, without behavioral disturbance, psychotic disturbance, mood disturbance, and anxiety Status: Acute Assessment and Plan: -continue with Aricept (4) COPD exacerbation: Code(s): J44.1 - Chronic obstructive pulmonary disease with (acute) exacerbation Status: Acute Assessment and Plan: -continue with Solu-Medrol. Continue with DuoNebs. -ABGs are improving. -On IV Lasix - on vanc cefepime and Levaquin -blood and sputum cultures are pending (5) Chronic anticoagulation: Code(s): Z79.01 - intermediate card tender (current) use of anticoagulants Status: Acute Assessment and Plan: -continue with Eliquis. The patient has had bilateral fem-pop and she states that is why she is on the Eliquis. Eliquis currently on hold Switched to therapeutic dose Lovenox (6) Hypertension: Qualifiers: Hypertension type: primary hypertension Qualified Code(s): I10 - Essential (primary) hypertension Code(s): I10 - Essential (primary) hypertension Status: Chronic Assessment and Plan: continue to monitor (7) Anemia: Qualifiers: Anemia type: iron deficiency Iron deficiency anemia type: chronic blood loss Qualified Code(s): D50.0 - Iron deficiency anemia secondary to blood loss (chronic) Code(s): D64.9 - Anemia, unspecified Status: Acute Assessment and Plan: H&H is stable. However her MCV is elevated 101.6. (8) Coronary artery disease: Qualifiers: Coronary Disease-Associated Artery/Lesion type: [place] artery Pl[place] vs. transplanted heart: [place] heart Associated angina: without angina Qualified Code(s): I25.10 - Atherosclerotic heart disease of [place] coronary artery without angina
[2022-12-12] MEDS: ROSUVASTATIN 10 MG TABLET 40 MG PO (20:47)
[2022-12-12] MEDS: rOPINIRole HCL 0.25 MG TABLET PO (20:47)
[2022-12-12] MEDS: MIRTAZAPINE 15 MG TABLET PO (20:51)
[2022-12-13] VITALS (19 sets, daily range): BP systolic 92–110; BP diastolic 46–52; PULSE 89–126; RESP 14–20; TEMP 36.2–36.7; O2SAT 91–94
[2022-12-13] MEDS: LEVALBUTEROL NEB 1.25 MG/3 ML 0.63 MG INHALATION ×4 (03:03→21:23)
[2022-12-13] MEDS: IPRATROPIUM BR 0.02% INH SOLN 0.5 MG/2.5 ML VIAL INHALATION ×4 (03:03→21:23)
[2022-12-13 06:42] LABS: Hematocrit 28.6 % (37.0-47.0); Hemoglobin 9.1 g/dL (12.0-15.0); Mean Corpuscular HGB Conc 31.8 g/dl (32-36); Mean Corpuscular Hemoglobin 30.7 pg (26-34); Mean Corpuscular Volume 96.6 fl (80-100); Mean Platelet Volume 12.6 fl (7.4-10.4); Platelet Count Result 172 k/mm3 (150-375); Red Blood Count 2.96 M/mm3 (4.2-5.4); Red Cell Distribution Width 16.3 % (11.5-14.5); White Blood Count 14.4 K/mm3 (4.5-10.0)
[2022-12-13 06:46] LABS: Magnesium 1.9 mg/dL (1.6-2.3)
[2022-12-13] MEDS: DORNASE ALFA INH SOLN 1 MG/ML 2.5 ML AMP 2.5 MG INHALATION ×2 (09:18→21:23)
[2022-12-13] MEDS: BUDESONIDE RESPULE NEB 0.5 MG/2 ML AMP INHALATION ×2 (09:18→21:23)
[2022-12-13] MEDS: ESCITALOPRAM OXALATE 5 MG TABLET PO (10:01)
[2022-12-13] MEDS: ASPIRIN 81 MG ENTERIC TABLET PO (10:01)
[2022-12-13] MEDS: levoFLOXacin 500 MG TABLET PO (10:01)
[2022-12-13] MEDS: NYSTATIN 100,000 UNITS/ML SUSP 5 ML ORAL.SUSP PO ×4 (10:01→20:58)
[2022-12-13] MEDS: PREGABALIN (*CRX) 75 MG CAPSULE 150 MG PO ×2 (10:02→20:55)
[2022-12-13] MEDS: PANTOPRAZOLE SODIUM IV 40 MG VIAL IV PUSH ×2 (10:02→20:58)
[2022-12-13] MEDS: DONEPEZIL HCL 10 MG TABLET PO (10:02)
[2022-12-13] MEDS: ENOXAPARIN 40 MG/0.4 ML SYRINGE SUB-Q ×2 (10:02→20:55)
[2022-12-13] MEDS: guaiFENesin 12 HR 600 MG TABCR 1200 MG PO ×2 (10:02→20:58)
[2022-12-13] MEDS: FUROSEMIDE INJ 40 MG/4 ML VIAL 20 MG IV PUSH (10:03)
[2022-12-13 10:32] LABS: Anion Gap 4 mmol/L (8-16); Blood Urea Nitrogen 15 mg/dL (7-17); Calcium 8.2 mg/dL (8.4-10.2); Carbon Dioxide 37 mmol/L (22-30); Chloride 95 mmol/L (98-107); Estimated CRCL calculation 73 ml/min; Estimated Glomerular Filt Rate > 60; Glucose 124 mg/dL (65-110); Potassium 3.6 mmol/L (3.4-5.0); Sodium 136 mmol/L (137-145)
--- NOTE | 2022-12-13 15:29 | PCPTNOTE ---
The patient treatment was not able to be completed today due to patient's resting HR in the 120's to 130's. Will plan to continue treatment per plan of care.
--- NOTE | 2022-12-13 15:39 | PCOTNOTE ---
Due to elevated heart rate, pt is not appropriate for Occupational Therapy treatment at this time. Will continue per POC duration/frequency tomorrow.
--- NOTE | 2022-12-13 16:10 | PM.IMPN ---
Progress Note: A&P Assessment and Plan (1) Acute on chronic respiratory failure: Qualifiers: Respiratory failure complication: hypoxia and hypercapnia Qualified Code(s): J96.21 - Acute and chronic respiratory failure with hypoxia; J96.22 - Acute and chronic respiratory failure with hypercapnia; J96.22 - Acute and chronic respiratory failure with hypercapnia Code(s): J96.20 - Acute and chronic respiratory failure, unspecified whether with hypoxia or hypercapnia Status: Acute Assessment and Plan: The patient has a history of COPD. She is chronically on oxygen at home. Patient has hypercapnia and hypoxia. The patient is on high-flow oxygen at this time. initially required Airvo. Oxygen requirement stable On broad-spectrum antibiotics and prednisone 12/13/2022 interval history:72 y/o female with history of smoking and COPD, presented with shortness of breath, and anemia there was c/o hemoptysis, and recent EGD showed gastric ulcerations, Patient is being treated with PPI, and hgb is stable, Patient shortness of breath requiring high flow oxygen,? seen by superintendent operations division does not suspect CHF, however her BNP is elevated and outside cutter has started on low dose of IV lasix, ? patient has long history of smoking most likely exacerbation of COPD, consulted outside cutter and seen patient suspect pneumonia and continue vancomycin and Cefepime, also added azithromycin to cover fot atypical pneumonia, patient is also treated with prednisone currently on 40mg,? patient with pneunothorax upon arrival now healing, for this patient is not anticoagulated, will add lovenox to covet for DVT, on 12/12 patient worked with PT/OT and did well, patient with end-stage disease emphysema clinical symptoms are improved, patient does get short winded with physical activity on and off, will do the home O2 eval for the tomorrow if remains clinically stable will discharge her home, patient be seen outside cutter and further recommendation to follow. (2) Pneumothorax: Qualifiers: Pneumothorax type: postprocedural Qualified Code(s): J95.811 - Postprocedural pneumothorax Code(s): J93.9 - Pneumothorax, unspecified Status: Acute Assessment and Plan: Possible postprocedure? it is unclear if a central line was attempted in the IJ. Surgery has been consulted CT chest with small apical pneumothorax (3) Dementia: Code(s): F03.90 - Unspecified dementia, unspecified severity, without behavioral disturbance, psychotic disturbance, mood disturbance, and anxiety Status: Acute Assessment and Plan: -continue with Aricept (4) COPD exacerbation: Code(s): J44.1 - Chronic obstructive pulmonary disease with (acute) exacerbation Status: Acute Assessment and Plan: -continue with Solu-Medrol. Continue with DuoNebs. -ABGs are improving. -On IV Lasix - on vanc cefepime and Levaquin -blood and sputum cultures are pending (5) Chronic anticoagulation: Code(s): Z79.01 - predatory animal exterminator (current) use of anticoagulants Status: Acute Assessment and Plan: -continue with Eliquis. The patient has had bilateral fem-pop and she states that is why she is on the Eliquis. Eliquis currently on hold Switched to therapeutic dose Lovenox (6) Hypertension: Qualifiers: Hypertension type: primary hypertension Qualified Code(s): I10 - Essential (primary) hypertension Code(s): I10 - Essential (primary) hypertension Status: Chronic Assessment and Plan: continue to monitor (7) Anemia: Qualifiers: Anemia type: iron deficiency Iron deficiency anemia type: chronic blood loss Qualified Code(s): D50.0 - Iron deficiency anemia secondary to blood loss (chronic) Code(s): D64.9 - Anemia, unspecified Status: Acute Assessment and Plan: H&H is stable. However her MCV is elevated 101.6. (8) Coronary artery disease: Qualifiers: Co
--- NOTE | 2022-12-13 18:20 | PC.NURSE ---
Pt had PICC line dressing changed yesterday at 1855. Pt tolerated well. Pt has been in bed. Mepilex placed on both heels and heels floated. Pt will have a home O2 evaluation done and potentially discharge tomorrow. Pt has participated and contributed in plan of care. Pt had a nose bleed that resolved quickly. Will continue to monitor pt.
[2022-12-13] MEDS: METOPROLOL TARTRATE 12.5 MG TABLET PO (20:55)
[2022-12-13] MEDS: rOPINIRole HCL 0.25 MG TABLET PO (20:58)
[2022-12-13] MEDS: MIRTAZAPINE 15 MG TABLET PO (20:58)
[2022-12-13] MEDS: ROSUVASTATIN 10 MG TABLET 40 MG PO (20:58)
[2022-12-13] MEDS: CENTRAL LINE FLUSH 10 ML IV PUSH (21:00)
[2022-12-14] VITALS (20 sets, daily range): BP systolic 94–114; BP diastolic 60–61; PULSE 91–132; RESP 16–20; TEMP 36.2–37; O2SAT 83–94
[2022-12-14 05:44] LABS: Hemoglobin 8.5 g/dL (12.0-15.0); Mean Corpuscular HGB Conc 31.5 g/dl (32-36); Mean Corpuscular Hemoglobin 30.6 pg (26-34); Mean Corpuscular Volume 97.1 fl (80-100); Mean Platelet Volume 12.7 fl (7.4-10.4); Platelet Count Result 163 k/mm3 (150-375); Red Blood Count 2.78 M/mm3 (4.2-5.4); Red Cell Distribution Width 15.9 % (11.5-14.5); White Blood Count 13.4 K/mm3 (4.5-10.0)
[2022-12-14 05:56] LABS: Anion Gap 1 mmol/L (8-16); Blood Urea Nitrogen 14 mg/dL (7-17); Calcium 7.7 mg/dL (8.4-10.2); Carbon Dioxide 37 mmol/L (22-30); Chloride 99 mmol/L (98-107); Estimated CRCL calculation 60 ml/min; Estimated Glomerular Filt Rate > 60; Glucose 102 mg/dL (65-110); Potassium 3.8 mmol/L (3.4-5.0); Sodium 137 mmol/L (137-145)
[2022-12-14] MEDS: DORNASE ALFA INH SOLN 1 MG/ML 2.5 ML AMP 2.5 MG INHALATION (08:56)
[2022-12-14] MEDS: BUDESONIDE RESPULE NEB 0.5 MG/2 ML AMP INHALATION (08:57)
[2022-12-14] MEDS: IPRATROPIUM BR 0.02% INH SOLN 0.5 MG/2.5 ML VIAL INHALATION ×2 (08:57→14:05)
[2022-12-14] MEDS: LEVALBUTEROL NEB 1.25 MG/3 ML 0.63 MG INHALATION ×2 (08:57→14:05)
[2022-12-14 10:17] LABS: Alpha-1-Antitrypsin, QN 147 mg/dL (83-199)
[2022-12-14] MEDS: NYSTATIN 100,000 UNITS/ML SUSP 5 ML ORAL.SUSP PO ×2 (10:39→15:21)
[2022-12-14] MEDS: PANTOPRAZOLE SODIUM IV 40 MG VIAL IV PUSH (10:39)
[2022-12-14] MEDS: FUROSEMIDE INJ 40 MG/4 ML VIAL 20 MG IV PUSH (10:41)
[2022-12-14] MEDS: FLUTICASONE PROPIONATE 0.05% NA SPR 16 GM BTL (*BKC) 1 SPRAY NASAL (10:42)
[2022-12-14] MEDS: METOPROLOL TARTRATE 12.5 MG TABLET PO (10:43)
[2022-12-14] MEDS: ESCITALOPRAM OXALATE 5 MG TABLET PO (10:44)
[2022-12-14] MEDS: guaiFENesin 12 HR 600 MG TABCR 1200 MG PO (10:45)
[2022-12-14] MEDS: ASPIRIN 81 MG ENTERIC TABLET PO (10:45)
[2022-12-14] MEDS: DONEPEZIL HCL 10 MG TABLET PO (10:45)
[2022-12-14] MEDS: ENOXAPARIN 40 MG/0.4 ML SYRINGE SUB-Q (10:46)
[2022-12-14] MEDS: SODIUM CHLORIDE NASAL GEL 14.1 GM 1 APPLIC NASAL (10:46)
[2022-12-14] MEDS: CENTRAL LINE FLUSH 10 ML IV PUSH (11:06)
--- NOTE | 2022-12-14 12:19 | PM.PNPUL ---
Progress Note: A&P Assessment and Plan (1) COPD exacerbation: Code(s): J44.1 - Chronic obstructive pulmonary disease with (acute) exacerbation Status: Acute Assessment and Plan: 72-year-old woman with a history of CABG, hypertension, peripheral vascular disease status post bypass, mitral regurgitation, COPD with moderate to severe panlobular emphysema throughout all lung gra[place] on CT scan from 09/26/2022, no PFTs available to review; on 3 L nasal cannula. 12/08 patient has no wheezing currently on levalbuterol 0.63 mg nebulized q.6 hours, ipratropium 0.5 mg nebulized Q 6 hours. she is also on cell meter all which I will discontinue. I will add nebulized budesonide at this time. Patient is on Solu-Medrol 40 IV q.12 hours and I will discontinue this and add Prednisone 40 mg p.o. q.day on 12/08/2022. COVID influenza RT PCR studies negative. Blood cultures negate. Sputum with normal daniel and yeast. I will patient has infiltrates on her chest x-ray and she has been treated with ceftriaxone and azithromycin and Levaquin on 12/05/2022. Patient was changed to vancomycin on 12/05 and cefepime on 12/06. Will continue vancomycin and cefepime at this time. 12/09 Patient tells me she continues to improve and is 80% back to her normal. She sat up in a chair yesterday and slept well. Currently she is on 3 L nasal cannula saturations 95%. she continues to have dark red secretions. Her white blood cell count is 11.1, creatinine is 0.5, BNP is increased from 975 to 4140. 1.2 L positive yesterday, cumulative positive 2.8 since admission, weight has increased from admission 36.2 kg to 42.5 kg. Lasix 20 IV q.day ordered. Chest x-ray shows no change in her right pneumothorax, mild improvement in the left mid lung zone infiltrate and continued infiltrate right upper and right lower lobes. Today patient does not have any wheezing and is on prednisone 40 mg p.o. and it is day 5 of steroids will DC, continue levalbuterol 0.63 mg nebs q.6 hours, ipratropium 0.5 mg nebs q.6 hours, budesonide 0.5 mg neb q.12 hours. Mucinex 600 started. 12/10 Patient continues to slowly improve. She says her breathing at rest is 80-85% back to her normal. She slept well last night. She continues to produce thick phlegm that now appears dark brown rather than dark red. She is afebrile. White blood cell count 9.5, creatinine 0.5. Patient is currently on 3 L nasal cannula saturations 93%. Chest x-ray with continued right apical pneumothorax (possible improved) and unchanged infiltrates. Diuresed 450 ml on lasix. Patient with continued pneumothorax and will check CT scan of the chest today. No wheezes. Continue levalbuterol 0.63 mg nebs q.6 hours, ipratropium 0.5 mg nebs q.6 hours, budesonide 0.5 mg neb q.12 hours. increase Mucinex to 1200 BID. No PEP or vest as with pneumothorax. Stable on [address] scan of the chest showed severe centrilobular emphysema in all lung graham, small right apical pneumothorax, small right pleural effusion, right upper lobe infiltrates left upper lobe infiltrates occasional tree-in-bud infiltrates. 12/11 patient slept well and feels about the same. She states that the cough is nearly resolved now. The phlegm is improved and her last phlegm was described as green without any evidence of blood. Her white blood cell count is 13.5, creatinine is 0.5. She still complains of difficulty expectorating. Saturations on 4 L nasal cannula were 92%. Lasix 20 IV and diuresed 600 mL yesterday. Cumulative +2 0.0 L since admission. chest x-ray with continued right apical pneumothorax, small right effusion, minimal improvement in her infiltrates. No wheezes. Continue levalbuterol 0.63 mg nebs q.6 hours, ipratropium 0.5 mg nebs q.6 hours, budesonide 0.5 mg neb q.12 hours, Mucinex to 1200 BID. Dornase 2.5 mg nebs b.i.d. started. No PEP or vest as with pneumothorax. required 4 L nasal cannula this morning, chest x-ray in the [facility]
--- NOTE | 2022-12-14 14:37 | PCRCNOTE ---
Home O2 eval complete. Patient requires 4lpm with rest and 5lpm with activity.
--- NOTE | 2022-12-14 14:58 | HOMEO2EVAL ---
Evaluation was performed at [facility] Home Oxygen Evaluation RC: Home Oxygen (O2) Evaluation Start: 12/14/22 14:06 Freq: Status: Active Protocol: RPE Activity Type Activity Date Activity User E-sign Co-sign Detail Recorded Client Recorded Date Recorded By Document 12/14/22 13:00 [email or web address] [email or web address] 12/14/22 14:12 PKH Document 12/14/22 13:05 [email or web address] [email or web address] 12/14/22 14:12 PKH Document 12/14/22 13:10 [email or web address] [email or web address] 12/14/22 14:12 PKH Document 12/14/22 13:15 [email or web address] [email or web address] 12/14/22 14:12 PKH Document 12/14/22 13:20 [email or web address] [email or web address] 12/14/22 14:12 PKH Document 12/14/22 13:25 [email or web address] [email or web address] 12/14/22 14:12 PKH Document 12/14/22 13:30 [email or web address] [email or web address] 12/14/22 14:12 PKH Document 12/14/22 13:45 [email or web address] [email or web address] 12/14/22 14:12 PKH 12/14/22 12/14/22 12/14/22 13:00 13:05 13:10 Home O2 Evaluation [Oxygen] -Test Phase Resting Resting Resting -Oxygen Delivery Room Air Nasal Cannula Nasal Cannula -Oxygen Flow Rate (L/min) 1 2 [Pulse Oximetry] -Pulse Oximetry (90-100 %) 83 L 84 L 85 L [Pulse Rate] -Pulse Rate (60-100 beats/min) 110 H 110 H 106 H [Charges] -Treatment Charges O2 Evaluation - Inpatient 12/14/22 12/14/22 12/14/22 13:15 13:20 13:25 Home O2 Evaluation [Oxygen] -Test Phase Resting Resting Exercise -Oxygen Delivery Nasal Cannula Nasal Cannula Nasal Cannula -Oxygen Flow Rate (L/min) 3 4 4 [Pulse Oximetry] -Pulse Oximetry (90-100 %) 86 L 90 87 L [Pulse Rate] -Pulse Rate (60-100 beats/min) 105 H 102 H 122 H [Charges] -Treatment Charges 12/14/22 12/14/22 13:30 13:45 Home O2 Evaluation [Oxygen] -Test Phase Exercise Resting -Oxygen Delivery Nasal Cannula Nasal Cannula -Oxygen Flow Rate (L/min) 5 4 [Pulse Oximetry] -Pulse Oximetry (90-100 %) 91 90 [Pulse Rate] -Pulse Rate (60-100 beats/min) 132 H 123 H [Charges] -Treatment Charges
--- NOTE | 2022-12-14 16:42 | PM.DS ---
DS: Admitting Diagnosis Discharge Date 12/14/2022 Admitting Diagnosis shortness of breath DS: Discharge Diagnosis Discharge Diagnosis (1) Acute on chronic respiratory failure: Qualifiers: Respiratory failure complication: hypoxia and hypercapnia Qualified Code(s): J96.21 - Acute and chronic respiratory failure with hypoxia; J96.22 - Acute and chronic respiratory failure with hypercapnia; J96.22 - Acute and chronic respiratory failure with hypercapnia Code(s): J96.20 - Acute and chronic respiratory failure, unspecified whether with hypoxia or hypercapnia Status: Acute Assessment and Plan: The patient has a history of COPD. She is chronically on oxygen at home. Patient has hypercapnia and hypoxia. The patient is on high-flow oxygen at this time. initially required Airvo. Oxygen requirement stable On broad-spectrum antibiotics and prednisone 12/13/2022 interval history:72 y/o female with history of smoking and COPD, presented with shortness of breath, and anemia there was c/o hemoptysis, and recent EGD showed gastric ulcerations, Patient is being treated with PPI, and hgb is stable, Patient shortness of breath requiring high flow oxygen,? seen by supervisor machine setter does not suspect CHF, however her BNP is elevated and certified technician has started on low dose of IV lasix, ? patient has long history of smoking most likely exacerbation of COPD, consulted certified technician and seen patient suspect pneumonia and continue vancomycin and Cefepime, also added azithromycin to cover fot atypical pneumonia, patient is also treated with prednisone currently on 40mg,? patient with pneunothorax upon arrival now healing, for this patient is not anticoagulated, will add lovenox to covet for DVT, on 12/12 patient worked with PT/OT and did well, patient with end-stage disease emphysema clinical symptoms are improved, patient does get short winded with physical activity on and off, will do the home O2 eval for the tomorrow if remains clinically stable will discharge her home, patient be seen certified technician and further recommendation to follow. (2) Pneumothorax: Qualifiers: Pneumothorax type: postprocedural Qualified Code(s): J95.811 - Postprocedural pneumothorax Code(s): J93.9 - Pneumothorax, unspecified Status: Acute Assessment and Plan: Possible postprocedure? it is unclear if a central line was attempted in the IJ. Surgery has been consulted CT chest with small apical pneumothorax (3) Dementia: Code(s): F03.90 - Unspecified dementia, unspecified severity, without behavioral disturbance, psychotic disturbance, mood disturbance, and anxiety Status: Acute Assessment and Plan: -continue with Aricept (4) COPD exacerbation: Code(s): J44.1 - Chronic obstructive pulmonary disease with (acute) exacerbation Status: Acute Assessment and Plan: -continue with Solu-Medrol. Continue with DuoNebs. -ABGs are improving. -On IV Lasix - on vanc cefepime and Levaquin -blood and sputum cultures are pending (5) Chronic anticoagulation: Code(s): Z79.01 - director long term care (current) use of anticoagulants Status: Acute Assessment and Plan: -continue with Eliquis. The patient has had bilateral fem-pop and she states that is why she is on the Eliquis. Eliquis currently on hold Switched to therapeutic dose Lovenox (6) Hypertension: Qualifiers: Hypertension type: primary hypertension Qualified Code(s): I10 - Essential (primary) hypertension Code(s): I10 - Essential (primary) hypertension Status: Chronic Assessment and Plan: continue to monitor (7) Anemia: Qualifiers: Anemia type: iron deficiency Iron deficiency anemia type: chronic blood loss Qualified Code(s): D50.0 - Iron deficiency anemia secondary to blood loss (chronic) Code(s): D64.9 - Anemia, unspecified Status: Acute Assessment and Plan: H&H is st
== END 2022-12-14 18:00 | disposition home health service (06) | DRG 189 ==
LOC: ANHED 15:17 → ANHICU 15:19 → ANH3MEDSUR 12-09 20:31
PROVIDERS: General Practice; Internal Medicine; Internal Medicine Pulmonary Disease; Nurse Practitioner; Physician Assistant; Admitting Provider Internal Medicine; Emergency Provider Emergency Medicine; PCP Family Medicine; Visit Provider Family Medicine
DX: J96.21 Acute and chronic respiratory failure with hypoxia (principal); J18.9 Pneumonia, unspecified organism; J95.811 Postprocedural pneumothorax; R57.9 Shock, unspecified; J96.22 Acute and chronic respiratory failure with hypercapnia; Z99.81 Dependence on supplemental oxygen; Z79.01 Long term (current) use of anticoagulants; D50.0 Iron deficiency anemia secondary to blood loss (chronic); I25.10 Atherosclerotic heart disease of native coronary artery without angina pectoris; I10 Essential (primary) hypertension; I34.0 Nonrheumatic mitral (valve) insufficiency; J43.1 Panlobular emphysema; F03.90 Unspecified dementia, unspecified severity, without behavioral disturbance, psychotic disturbance, mood disturbance, and anxiety; Z20.822 Contact with and (suspected) exposure to COVID-19; Z95.1 Presence of aortocoronary bypass graft; Z87.891 Personal history of nicotine dependence; Z79.82 Long term (current) use of aspirin; Z79.899 Other long term (current) drug therapy; Z82.49 Family history of ischemic heart disease and other diseases of the circulatory system; Z82.3 Family history of stroke
CPT/HCPCS: 36415; 36430; 36569; 36600; 71045; 71046; 71250; 80048; 80053; 80202; 81001; 82103; 82104; 82375; 82565; 82805; 83050; 83605; 83735; 83880; 84100; 84439; 84443; 84480; 84484; 85025; 85027; 85055; 85610; 85730; 86140; 86850; 86900; 86901; 86923; 87040; 87070; 87106; 87186; 87205; 87636; 93005; 94618; 94640; 96361; 96365; 96366; 96367; 96368; 96375; 96376; 97110; 97161; 97166; 97530; 99285; A9270; C1751; C9113; G0378; J0456; J0692; J0696; J1650; J1940; J1956; J2930; J3370; J7030; J7040; J7050; J7512; P9016; P9047

== ENCOUNTER 2023-02-27 09:53 | Outpatient (CLI) | payer OTHER, SELFPAY ==
--- NOTE | ~2023-02-27 | XR_ITS ---
Clinical Indication: Pneumothorax, COPD PA and lateral views of the chest: Comparison: 12/14/2022 Findings: The lungs are clear, without evidence of focal consolidation or pleural effusion. COPD sandra raymundo present. Cardiomediastinal silhouette is stable, status post CABG. Bones and soft tissues are unr emarkable. Impression: COPD pattern. Clear lungs. Reviewed, dictated and finalized at location . Impression: COPD pattern. Clear lungs.
== END 2023-02-27 09:54 | disposition home or self-care (01) ==
PROVIDERS: PCP Family Medicine; Visit Provider Internal Medicine Critical Care Medicine
DX: J44.9 Chronic obstructive pulmonary disease, unspecified (principal)
CPT/HCPCS: 71046

== ENCOUNTER 2023-03-03 07:59 | Outpatient (CLI) | payer OTHER, SELFPAY ==
[2023-03-03 08:30] VITALS: O2SAT 87
[2023-03-03 08:32] VITALS: O2SAT 93
[2023-03-03 08:40] VITALS: O2SAT 90
[2023-03-03 09:00] VITALS: O2SAT 94
--- NOTE | 2023-03-03 11:19 | HOMEO2EVAL ---
Evaluation was performed at [facility] Home Oxygen Evaluation RC: Home Oxygen (O2) Evaluation Start: 03/03/23 11:13 Freq: Status: Active Protocol: RPE Activity Type Activity Date Activity User E-sign Co-sign Detail Recorded Client Recorded Date Recorded By Document 03/03/23 08:30 PAMELA [email or web address] 03/03/23 11:18 PAMELA Document 03/03/23 08:32 PAMELA [email or web address] 03/03/23 11:18 PAMELA Document 03/03/23 08:40 PAMELA [email or web address] 03/03/23 11:18 PAMELA Document 03/03/23 09:00 PAMELA [email or web address] 03/03/23 11:18 PAMELA 03/03/23 03/03/23 03/03/23 08:30 08:32 08:40 Home O2 Evaluation [Oxygen] -Test Phase Resting Resting Exercise -Oxygen Delivery Room Air Nasal Cannula Nasal Cannula -Oxygen Flow Rate (L/min) 3 4 [Pulse Oximetry] -Pulse Oximetry (90-100 %) 87 L 93 90 [Comments] -Home Oxygen Evaluation Comments Patient requires 3 liters at rest and 4 with exertion [Charges] -Treatment Charges O2 Evaluation - Outpatient 03/03/23 09:00 Home O2 Evaluation [Oxygen] -Test Phase Resting -Oxygen Delivery Nasal Cannula -Oxygen Flow Rate (L/min) 3 [Pulse Oximetry] -Pulse Oximetry (90-100 %) 94 [Comments] -Home Oxygen Evaluation Comments [Charges] -Treatment Charges
--- NOTE | 2023-03-03 12:21 | P.PCNPFT_ITS ---
PFT Procedure Performed PFT Procedure Performed Spirometry with Pre/Post Bronchodilator Plethysmography (Lung Vol) Diffusing Cap (DLCO) Flow Vol Loop PFT Interpretation This is a pulmonary function test with pre and post-bronchodilator spirometry, plethysmography and diffusing capacity. The test was performed and results interpreted in accordance with the 2019 and 2005 ATS/ERS Task Force guidelines respectively using the Global Lung Function Initiative-2012 reference equations. Patient demonstrated good effort and cooperation. Reproducibility criteria were met. The quality of the pre bronchodilator spirometry maneuver was Grade A and post bronchodilator spirometry maneuver was Grade A. Findings: Spirometry: There is decreased maximal expiratory airflow at all lung volumes with concave expiratory flow tracing. The contour the inspiratory flow tracing is normal. The pre bronchodilator FVC is 1.52 L, 58% predicted. The pre bronchodilator FEV1 is 0.60 L, 29% predicted. The pre bronchodilator FEV1: FVC ratio is 40%. The post bronchodilator FVC is 2.04 L, representing a 34% increase. The post bronchodilator FEV1 is 0.69 L, representing a 14% increase. The post bronchodilator FEV1: FVC ratio was 34%. Plethysmography: The total lung capacity is 6.14 L, 130% predicted. The func tional residual capacity is 4.77 L, 178% predicted. The residual volume is 4.45 L, 214% predicted. Diffusing capacity: The diffusing capacity unadjusted for hemoglobin and carboxyhemoglobin is 4.3, 22% predicted. The diffusing capacity adjusted for alveolar volume is 2.01, 46% predicted. Impression: There is a very severe obstructive abnormality with significant improvement after inhaling a single dose of albuterol. The increase in residual volume is consistent with air trapping from an obstructive abnormality. Hyperinflation is present as demonstrated by the increase in functional residual capacity and total lung capacity and is consistent with an obstructive abnormality. The diffusing capacity unadjusted for hemoglobin and carboxyhemoglobin is severely decreased and remains moderately decreased when adjusted for alveolar volume. There are no prior studies for comparison
== END 2023-03-03 08:00 | disposition home or self-care (01) ==
LOC: ANHPFT 08:02
PROVIDERS: PCP Family Medicine; Visit Provider Internal Medicine Critical Care Medicine
DX: J96.11 Chronic respiratory failure with hypoxia (principal); J44.9 Chronic obstructive pulmonary disease, unspecified; R94.2 Abnormal results of pulmonary function studies
CPT/HCPCS: 94060; 94618; 94726; 94729

== ENCOUNTER 2023-08-01 11:37 | Outpatient (RCR) | payer MEDICARE, SELFPAY | END 2023-11-20 07:39 | disposition home or self-care (01) | LOC: ANHCPREHAB 11:37 | PROVIDERS: PCP Family Medicine; Visit Provider Internal Medicine Pulmonary Disease | DX: J44.9 Chronic obstructive pulmonary disease, unspecified (principal) | CPT/HCPCS: 94625 ==

== ENCOUNTER 2023-08-17 12:52 | Outpatient (CLI) | payer MEDICARE, SELFPAY ==
[2023-08-17 13:27] LABS: Base Excess ABG 1.6 mEq/l (+/-2.0); Carboxyhemoglobin 0.8 % THb (0-2.0); Fractional Inspired Oxygen 36 %; HCO3 ABG 26.5 mEq/l (22.0-26.0); Methemoglobin ABG 0.3 %THb (0-1.5); Oxygen Content ABG 14.3 %vol (16.0-22.0); Oxygen Saturation ABG 90.9 % (95.0-100.0); Oxyhemoglobin 88.9 % THb (90.0-100.0); PCO2 ABG 43.2 mmHg (35.0-45.0); PO2 ABG 59.6 mmHg (80.0-100.0); PO2 FiO2 Ratio Arterial Blood 1.66 %; Total Hemoglobin 11.4 g/dL (12.0-18.0); pH ABG 7.406 (7.350-7.450)
[2023-08-17 13:31] LABS: Device NASAL CANNULA; Modified Allen's Test Pass; Site Drawn RIGHT RADIAL
== END 2023-08-17 12:53 | disposition home or self-care (01) ==
LOC: ANHPFT 12:53
PROVIDERS: PCP Family Medicine; Visit Provider Internal Medicine Pulmonary Disease
DX: J44.9 Chronic obstructive pulmonary disease, unspecified (principal)
CPT/HCPCS: 36600; 82375; 82805; 83050